=== PATIENT | female | born 1955 | race African-American/Black ===

== ENCOUNTER 2017-01-29 00:55 | Inpatient (IN) ==
[2017-01-29] MEDS ORDERED: SODIUM CHLORIDE 0.9% 500 ML IV STA (01:39)
[2017-01-29] MEDS ORDERED: MORPHINE 2 MG/1 ML SYRINGE IV STA (01:39)
[2017-01-29] MEDS ORDERED: ONDANSETRON 4 MG/2 ML VIAL IV STA (01:39)
[2017-01-29] MEDS ORDERED: LABETALOL 20 MG/4 ML SYRINGE IV STA ×2 (01:42→04:17)
[2017-01-29] MEDS ORDERED: ONDANSETRON 4 MG/2 ML VIAL ONE (01:54)
[2017-01-29] MEDS ORDERED: LABETALOL 100 MG/20 ML VIAL IV ONE (01:55)
[2017-01-29] MEDS ORDERED: MORPHINE 2 MG/1 ML SYRINGE ONE (01:55)
--- NOTE | 2017-01-29 01:55 | Emergency Department Note ---
Krishna Rodrigues Kasabria, am scribing for, and in the presence of, Georges Jovel MD 01:42. Med Rodrigues Robert M, MD, personally performed the services described in this documentation, ascribed by Elias Keller in my presence, and it is both accurate and complete . Arrival - Arrival Chief Complaint: Abdominal / Flank Pain Stated Complaint: vomitting pain on right side ED Nursing Triage Note: C/C N/V, right side abd pain started 01/28 17:00 Mode of Arrival: Ambulatory Limitations: No Limitations Source: Patient Time Seen by Provider: 01/29/17 01:18 - History of Present Illness HPI Narrative: Pt is a 61 y/o black female presenting to the ED with c/o nausea, vomiting, and generalized right sided abdominal pain that onset 01/28 at 1700. She states she has a dry cough and the abdominal pain onset initially 3 days ago. After meals the pain is worse but now describes the pain as constant. Tonight the vomiting onset. Her blood pressure is elevated but she takes 2 blood pressure medications and was compliant with the last dose being at 2300 tonight. She denies fever, chills, diarrhea, back pain, [place], vertigo, vision change, numbness , tingling, chest pain, and SOB. Consistency: constant Severity: moderate Allergies/Adverse Reactions: Allergies Allergy/AdvReac Type Severity Reaction Status Date / Time acetaminophen [From Lortab] Allergy ITCHING Verified 01/29/17 01:09 clarithromycin [From Biaxin] Allergy Swelling Verified 01/29/17 01:08 of Lip/Tongue/Throat dexamethasone [From Decadron] Allergy RASH Verified 01/29/17 01:09 hydrocodone [From Lortab] Allergy ITCHING Verified 01/29/17 01:09 prednisone Allergy Swelling Verified 01/29/17 01:08 of Lip/Tongue/Throat sulfamethoxazole Allergy RASH Verified 01/29/17 01:09 [From Bactrim] trimethoprim [From Bactrim] Allergy RASH Verified 01/29/17 01:09 Home Medications: Home Medications Medication Instructions Recorded Confirmed Type Unable To Obtain [Unable to Obtain] 01/29/17 01/29/17 History Review of System - Review of System 12 point system: reviewed and no additional remarkable complaints except as stated - Review of System Constitutional: Absent: chills, diaphoresis, fever, weakness Eyes: Absent: vision change Head/Ears/Nose/Throat: Absent: nasal drainage Respiratory: Absent: cough, wheezing Cardiovascular: Absent: chest pain, dyspnea on exertion, syncope Gastrointestinal: Present: abdominal pain (right sided abdominal tenderness ; worse after meals ), nausea, vomiting. Absent: diarrhea Genitourinary female: Absent: dysuria Musculoskeletal: Absent: arm pain, back pain, leg pain, neck pain Skin: Absent: rash Neurological: Absent: headache, weakness, confusion, abnormal gait, vertigo Psychiatric: Absent: anxiety Endocrine: Absent: fatigue Hematological/Lymphatic: Absent: easy bleeding Allergic/Immunologic: Absent: facial swelling Medical,Surgical,& Family Hx - Medical History Cardio: History of: Hypertension Endocrine: History of: Diabetes Mellitus (IDDM), Dyslipidemia Respiratory: History of: Asthma Gastrointestinal: History of: GERD Musculoskeletal: History of: Musculoskeletal Problems (Arthritis) - Surgical History Abdominal Surgeries: Patient denies: Cholecystectomy Reproductive Surgeries: Surgical HX of;: Hysterectomy - Social History Smoking Status: Never smoker Frequency of Alcohol Use: None Type of Drug Use: None Exam Vital Signs: Vital Signs Temperature 98 F 01/29/17 00:57 Pulse Rate 96 H 01/29/17 04:01 Respiratory Rate 20 01/29/17 04:01 Blood Pressure 179/96 01/29/17 04:01 O2 Sat by Pulse Oximetry 100 01/29/17 04:01 - General General appearance: alert, in no apparent distress - Head Head exam: Present: atraumatic, normocephalic, normal inspection - Eye Eye exam: Present: normal appearance, PERRL, EOMI - ENT ENT exam: Present: normal exam, normal oropharynx, mucous membranes moist, TM's normal bilaterally, normal external ear exam - Neck Neck exam: Present: normal inspection, full ROM, trachea midline. Absent: tenderness - Chest Chest inspection: Present: normal inspection, symmetric chest wall rise. Absent : tenderness - Respiratory Respiratory exam: Present: normal lung sounds bilaterally - Cardiovascular Cardiovascular exam: Present: regular rate, normal rhythm, normal heart sounds - Abdominal Exam Abdominal exam: Present: soft, normal bowel sounds. Absent: distention, tenderness, guarding, rebound - Extremities Exam Extremities exam: Present: normal inspection, full ROM, normal capillary refill. Absent: tenderness, pedal edema, calf tenderness - Back Exam Back exam: Present: normal inspection, full ROM. Absent: tenderness - Neurological Exam Neurological exam: Present: alert, oriented X3, CN II-XII intact, normal gait, reflexes normal - Psychiatric Psychiatric exam: Present: normal affect, normal mood - Skin Skin exam: Present: warm, dry, intact, normal color. Absent: diaphoresis, erythema Course - Consultations Consultation #1: Dr. Vidal will evaluate and admit the patient. Time: 04:05 Results - Labs CBC & BMP: 01/29/17 01:37 01/29/17 01:37 Lab Results: I have reviewed the patients labs Labs: Lab Results WBC 10.6 T/CUMM (4-12) 01/29/17 01:37 RBC 4.41 MC/CUMM (3.8-5.5) 01/29/17 01:37 Hgb 12.0 GM/DL (12.0-16.0) 01/29/17 01:37 Hct 37.9 VOL% (35.7-47.0) 01/29/17 01:37 MCV 85.9 FL (87-102) L 01/29/17 01:37 MCH 27 PG (27-34) 01/29/17 01:37 MCHC 31.7 GM/DL (32-36) L 01/29/17 01:37 RDW 14.4 % (9.3-17.3) 01/29/17 01:37 Plt Count 242 T/CUMM (130-400) 01/29/17 01:37 MPV 13.3 FL (9.6-12.0) H 01/29/17 01:37 Neut % (Auto) 45.4 % (38.7-73.9) 01/29/17 01:37 Lymph % (Auto) 43.5 % (21.3-54.2) 01/29/17 01:37 Summers % (Auto) 5.1 % (1.7-12.7) 01/29/17 01:37 Eos % (Auto) 4.9 % (0.00-10.9) 01/29/17 01:37 Baso % (Auto) 0.9 % (0.0-0.8) H 01/29/17 01:37 Neut # (Auto) 4.8 10*3/uL (1.4-7.4) 01/29/17 01:37 Lymph # (Auto) 4.6 10*3/uL (1.4-4.0) H 01/29/17 01:37 Summers # (Auto) 0.5 10*3/uL (0.11-0.8) 01/29/17 01:37 Eos # (Auto) 0.5 10*3/uL (0.0-0.87) 01/29/17 01:37 Baso # (Auto) 0.1 10*3/uL (0.0-0.2) 01/29/17 01:37 Immature Gran % 0.2 % 01/29/17 01:37 Nucleated RBC % 0.0 /100WBC 01/29/17 01:37 Immature Gran # 0.02 # 01/29/17 01:37 Nucleated RBCs # 0.00 10*3/uL 01/29/17 01:37 Sodium 140 MMOL/L (136-145) 01/29/17 01:37 Potassium 3.9 MMOL/L (3.5-5.1) 01/29/17 01:37 Chloride 101 MMOL/L (98-107) 01/29/17 01:37 Carbon Dioxide 26 MMOL/L (21-32) 01/29/17 01:37 Anion Gap 16.9 MMOL/L (5.0-15.0) H 01/29/17 01:37 BUN 19 MG/DL (7-18) H 01/29/17 01:37 Creatinine 1.20 MG/DL (0.55-1.02) H 01/29/17 01:37 GFR Calculation 67 ML/MIN 01/29/17 01:37 BUN/Creatinine Ratio 15.00 RATIO (6.00-20.00) 01/29/17 01:37 Glucose 165 MG/DL (74-106) H 01/29/17 01:37 POC Glucose 171 MG/DL (74-106) H 01/29/17 03:10 Calculated Osmolality 284.4 MOS/KG (273-304) 01/29/17 01:37 Calcium 10.0 MG/DL (8.5-10.1) 01/29/17 01:37 Total Bilirubin 0.40 MG/DL (0.2-1.0) 01/29/17 01:37 AST 54 U/L (0-37) H 01/29/17 01:37 ALT 68 U/L (13-56) H 01/29/17 01:37 Alkaline Phosphatase 158 U/L (45-117) H 01/29/17 01:37 Total Protein 7.4 G/DL (6.4-8.3) 01/29/17 01:37 Albumin 3.8 G/DL (3.4-5.0) 01/29/17 01:37 Globulin 3.6 G/DL (2.3-3.5) H 01/29/17 01:37 Albumin/Globulin Ratio 1.0 RATIO (1.1-2.2) L 01/29/17 01:37 Amylase 81 U/L (25-115) 01/29/17 01:37 Lipase 207.0 U/L (73-393) 01/29/17 01:37 Urine Color Yellow (Yellow) 01/29/17 01:37 Urine Appearance Slightly hazy (Clear) 01/29/17 01:37 Urine pH 5.0 (4.5-8.0) 01/29/17 01:37 Ur Specific Park 1.019 (1.001-1.035) 01/29/17 01:37 Urine Protein >=500 MG/DL 01/29/17 01:37 Urine Glucose (UA) Negative mg/dL (Negative) 01/29/17 01:37 Urine Ketones Negative mg/dL (Negative) 01/29/17 01:37 Urine Blood Negative mg/dL (Negative) 01/29/17 01:37 Urine Nitrate Negative (Negative) 01/29/17 01:37 Urine Bilirubin Negative mg/dL (Negative) 01/29/17 01:37 Urine Urobilinogen < 2.0 EU/DL (0.2-1.0) H 01/29/17 01:37 Urine Leukocytes Negative Cheri/ul (Negative) 01/29/17 01:37 Urine RBC 1 /HPF (0-4) 01/29/17 01:37 Urine WBC 1 /HPF (0-6) 01/29/17 01:37 Ur Squamous Epith Cells Occasional /HPF (0-10) 01/29/17 01:37 Urine Bacteria Occasional /HPF (Few) 01/29/17 01:37 Hyaline Casts 1 /LPF (0-3) 01/29/17 01:37 Urine Mucus Occasional /LPF (Occasional) 01/29/17 01:37 Ur Culture Indicated? Not indicated 01/29/17 01:37 - Diagnostic Findings Procedure: CT Abdomen and Pelvis: report reviewed by me (SBO) Disposition Clinical Impression: Small bowel obstruction, Hypertension Case discussed with: patient Disposition: Still a Patient Condition: Stable Time of Disposition: 04:05
[2017-01-29 01:59] LABS: Basophils # 0.1 10*3/uL (0.0-0.2); Basophils % 0.9 % (0.0-0.8); Eosinophils # 0.5 10*3/uL (0.0-0.87); Eosinophils % 4.9 % (0.00-10.9); Hematocrit 37.9 VOL% (35.7-47.0); Immature Granulocytes % 0.2 %; Immature Granulocytes Absolute 0.02 #; Lymphocytes # 4.6 10*3/uL (1.4-4.0); Lymphocytes % 43.5 % (21.3-54.2); Mean Corpuscular HGB Conc 31.7 GM/DL (32-36); Mean Corpuscular Hemoglobin 27 PG (27-34); Mean Corpuscular Volume 85.9 FL (87-102); Mean Platelet Volume 13.3 FL (9.6-12.0); Monocytes # 0.5 10*3/uL (0.11-0.8); Monocytes % 5.1 % (1.7-12.7); Neutrophils # 4.8 10*3/uL (1.4-7.4); Neutrophils % 45.4 % (38.7-73.9); Platelet Count 242 T/CUMM (130-400); Red Blood Count 4.41 MC/CUMM (3.8-5.5); Red Cell Distribution Width 14.4 % (9.3-17.3); White Blood Count 10.6 T/CUMM (4-12)
[2017-01-29 02:03] LABS: Apearance,Urine Slightly Hazy (Clear); Bacteria,Urine Occasional /HPF (Few); Bilirubin,Urine Negative (Negative); Blood, Urine Negative (Negative); Glucose,Urine (UA) Negative (Negative); Hyaline Casts,Urine 1 /LPF (0-3); Ketones,Urine Negative (Negative); Mucus,Urine Occasional /LPF (Occasional); Nitrite,Urine Negative (Negative); Protein,Urine >=500 MG/DL; RBC,Urine 1 /HPF (0-4); Squamous Epithelial Cell,Urine Occasional /HPF (0-10); Urine Color Yellow (Yellow); Urine Specific Gravity 1.019 (1.001-1.035); Urine Urobilinogen < 2.0 EU/DL (0.2-1.0); WBC,Urine 1 /HPF (0-6)
[2017-01-29 02:22] LABS: Albumin 3.8 G/DL (3.4-5.0); Bilirubin,Total 0.4 MG/DL (0.2-1.0); Osmolality,Calculated 284.4 MOS/KG (273-304); Potassium 3.9 MMOL/L (3.5-5.1); Total Protein 7.4 G/DL (6.4-8.3)
[2017-01-29] MEDS ORDERED: BISACODYL 5 MG TABLET PO PRN (04:09)
[2017-01-29] MEDS ORDERED: BENZOCAINE/BUTAMBEN/TETRACAINE SPRAY 20 GM CAN TOP ONE (04:25)
[2017-01-29] MEDS ORDERED: PHENOL 1.4% THROAT SPRAY 177 ML BOTTLE PO PRN (05:34)
[2017-01-29] MEDS: DEXTROSE 5% LACTATED RINGERS 1,000 ML IV SCH ×4 (06:05→21:47)
--- NOTE | 2017-01-29 06:30 | CT Report ---
Exam: CT abdomen pelvis w con Date: 01/29/2017 1:39 AM Comparison: None Indication: Abdominal pain and pelvic pain Total DLP: 1672.7 mGy*cm Technical: No oral contrast administered. Images were obtained from the lung bases to the iliac crest continuation through the pelvis with 100 cc of Omnipaque 350 with axial sagittal coronal imaging available for review. Dose reduction was performed with decreasing kv and mA and automated exposure Findings: The study was initially reviewed by C. Lung bases: No obvious infiltrates or effusions present. Liver and Spleen: Fatty infiltration of the liver is present. The hepatic and portal veins are patent and the spleen is unremarkable. Gallbladder and Pancreas: Gallbladder is unremarkable. The pancreas is intact. Adrenals: Unremarkable Kidneys: Both kidneys are equally perfused and demonstrate no evidence for obstructive uropathy. Stomach: Incomplete distended with air fluid and debris Retroperitoneum: No enlarged lymph nodes. Aorta and IVC: Very minimal atherosclerotic plaque at the aortoiliac junction. The IVC is patent no aneurysm noted Bowel and Mesentery: Some dilated loops of small bowel are present. Diverticulosis present within the rectosigmoid colon without obvious diverticulitis present. No obvious evidence of appendicitis noted. Scattered nodes in the mesentery in the mesenteric fat. Pelvis: Bladder: Partially distended with contrast on delayed images. Fluid: No free fluid identified. Lymph nodes: No enlarged lymph nodes. Pelvic organs: Prostate hysterectomy Osseous structures: Degenerative spondylosis change present and some vacuum phenomena in the thoracolumbar spine. Facet arthropathy is present. Impression: 1. Dilated loop of small bowel in the left lower abdomen partial bowel obstruction cannot be excluded. Transition point is in the anterior left mid abdomen. 2. Fatty infiltration 3. Diverticulosis without obvious diverticulitis 4. Scattered mesenteric nodes present. PROCEDURE INTERPRETED AT [facility] DEPARTMENT OF RADIOLOGY Final Report Signed by: Dr. Sharan Jules
[2017-01-29] MEDS: PANTOPRAZOLE 40 MG TABLET PO SCH (08:10)
--- NOTE | 2017-01-29 08:23 | General Surg History&Physical ---
Assessment and Plan (1) Small bowel obstruction Status: Acute Assessment and plan: Impression: Possible ileus related to gastroenteritis versus partial small bowel obstruction Plan: CT scan images and report have been reviewed. Labs were largely okay. We 'll continue conservative management with NG tube decompression. Encouraged ambulation. We'll consult Hospital medicine to assist with her medical problems. She is very hypertensive upon arrival but she is probably not been able to keep her blood pressure medication down. Current Visit: Yes History of Present Illness Chief complaint: abdominal pain History of present illness: Ms. Harrison is a 61 year old female who presents to the emergency room with a one -day history of abdominal pain associated with nausea and vomiting. Patient began to experience diarrhea approximately 3-4 days ago and it stopped on Friday and she began to have nausea vomiting and pain which is been mostly along the right abdomen. Any melena. She's had no bleeding that she knows of. She denies any chest pain or shortness of breath. Last bowel movement was diarrhea on Friday. She denies any flatus since admission. She states that she feels better since the NG tube was placed. She states she is still distended but it has improved some. Home Medications Medication Instructions Recorded Confirmed Type Unable To Obtain [Unable to Obtain] 01/29/17 01/29/17 History Allergies Allergy/AdvReac Type Severity Reaction Status Date / Time acetaminophen [From Lortab] Allergy ITCHING Verified 01/29/17 01:09 clarithromycin [From Biaxin] Allergy Swelling Verified 01/29/17 01:08 of Lip/Tongue/Throat dexamethasone [From Decadron] Allergy RASH Verified 01/29/17 01:09 hydrocodone [From Lortab] Allergy ITCHING Verified 01/29/17 01:09 prednisone Allergy Swelling Verified 01/29/17 01:08 of Lip/Tongue/Throat sulfamethoxazole Allergy RASH Verified 01/29/17 01:09 [From Bactrim] trimethoprim [From Bactrim] Allergy RASH Verified 01/29/17 01:09 Medical,Surgical,& Family Hx - Medical History Cardio: History of: Hypertension Endocrine: History of: Diabetes Mellitus (IDDM), Dyslipidemia Respiratory: History of: Asthma Gastrointestinal: History of: GERD Musculoskeletal: History of: Back/Neck Problems (spinal stenosis, herniated disk L4-5), Musculoskeletal Problems (Arthritis) - Surgical History Abdominal Surgeries: Surgical HX of: Appendectomy Patient denies: Cholecystectomy Reproductive Surgeries: Surgical HX of;: Hysterectomy Orthopedic Surgeries: Surgical HX of;: Total Knee Replacement (RTK in 2013) - Family History Family History: Reports;: Family Cancer (both parents had lung cancer), Family Diabetes, Family Hypertension - Social History Smoking Status: Never smoker Frequency of Alcohol Use: None Type of Drug Use: None Exam - Constitutional Vitals: Period Temp Pulse Resp BP Sys/Evangelista Pulse Ox Last 24 Hr 98.1 F-98.3 F 83-88 18-20 164-178/85-117 94-97 General appearance: no acute distress - Head Head exam: Present: normocephalic - ENT Mouth exam: Present: normal external inspection - Neck Neck exam: Present: normal inspection, trachea midline - Respiratory Respiratory exam: Present: clear to auscultation bilaterally - Cardiovascular Cardiovascular exam: Present: RRR - GI/Abdominal GI/Abdominal exam: Present: soft (mild tenderness along the right abdomen. Some distention. Hypoactive bowel sounds. No peritoneal signs. No left abdominal pain or tenderness.) - Extremities Exam Extremities exam: Present: normal inspection - Back Exam Back exam: Present: normal inspection - Neurological Exam Neurological exam: Present: alert, oriented X3 Speech: Present: normal - Skin Skin exam: Present: normal color 12 point system: reviewed and no additional remarkable complaints except as stated Results - Labs CBC & BMP: 01/29/17 01:37 01/29/17 01:37 Lab Results: I have reviewed the past 24 hour labs
--- NOTE | 2017-01-29 09:51 | Hospitalist Consult Note ---
<Hermila Olivera - Last Filed: 01/29/17 09:40> History of Present Illness - Data of Consult Patient: new to practice Consult date: 01/29/17 Requesting Physician: Aftab Manriquez - Consult Narrative Reason for consult: Medical Management History of present illness: Ms. Harrison is a 61 year old female with history of HTN and diabetes that has been admitted to surgery services for a bowel obstruction. The Hospitalist services ahs been consulted to manage her diabetes as well as her hypertension. She is a pleasant female who has a history of hypertension since she was 15 y/o. States she takes her medication daily as prescribed. She is on Clonidine and Verapamil. She states her BP has been well controlled until she became ill. States her diabetes was not well controlled until she was placed on insulin several months ago but it has been much better since then. She occasionally has low blood sugars in the 40-70 range if she takes her insulin but doesn't eat. She denies issues with heart attack or strokes in the past. Thank you for allowing us to participate in the care of your patient CC: Aftab Manriquez MD - Home Medications and Allergies Home Medications: Home Medications Medication Instructions Recorded Confirmed Type Amoxicillin/Potassium Clav [Amox 1 each PO BID 01/29/17 01/29/17 History Tr-K Clv 875-125 mg Tab] Cholecalciferol (Vitamin D3) 1,000 unit PO DAILY 01/29/17 01/29/17 History [Vitamin D3 Chew Tab] Clonidine HCl [Clonidine HCl ER] 0.1 mg PO BID 01/29/17 01/29/17 History Fenofibrate,Micronized [Antara] 90 mg PO DAILY 01/29/17 01/29/17 History Furosemide Tab [Lasix Tab] 20 mg PO DAILY 01/29/17 01/29/17 History Gabapentin 1 tablet PO BEDTIME 01/29/17 01/29/17 History Gabapentin 300 mg PO BID 01/29/17 01/29/17 History Insulin Regular [HumuLIN R] 65 unit SUBCUT AC LUNCH 01/29/17 01/29/17 History Insulin Regular [HumuLIN R] 65 unit SUBCUT AC SUPPER 01/29/17 01/29/17 History Insulin Regular [HumuLIN R] 85 unit SUBCUT DAILY W/BREAKFAST 01/29/17 01/29/17 History Levothyroxine Tab [Synthroid Tab] 50 mcg PO DAILY@0700 01/29/17 01/29/17 History Metformin HCl 1,000 mg PO BID 01/29/17 01/29/17 History Methocarbamol [Methocarbamol] 750 mg PO QID 01/29/17 01/29/17 History Multivitamin [One Daily] 1 each PO DAILY 01/29/17 01/29/17 History Pantoprazole Sodium [Protonix] 40 mg PO DAILY 01/29/17 01/29/17 History Verapamil HCl [Verapamil ER Tab] 240 mg PO DAILY 01/29/17 01/29/17 History traMADol TAB [Ultram] 50 mg PO Q4-6H PRN 01/29/17 01/29/17 History Allergies/Adverse Reactions: Allergies Allergy/AdvReac Type Severity Reaction Status Date / Time acetaminophen [From Lortab] Allergy ITCHING Verified 01/29/17 01:09 clarithromycin [From Biaxin] Allergy Swelling Verified 01/29/17 01:08 of Lip/Tongue/Throat dexamethasone [From Decadron] Allergy RASH Verified 01/29/17 01:09 hydrocodone [From Lortab] Allergy ITCHING Verified 01/29/17 01:09 prednisone Allergy Swelling Verified 01/29/17 01:08 of Lip/Tongue/Throat sulfamethoxazole Allergy RASH Verified 01/29/17 01:09 [From Bactrim] trimethoprim [From Bactrim] Allergy RASH Verified 01/29/17 01:09 Medical,Surgical,& Family Hx - Medical History Cardio: History of: Hypertension Endocrine: History of: Diabetes Mellitus (IDDM), Dyslipidemia Respiratory: History of: Asthma Gastrointestinal: History of: GERD Musculoskeletal: History of: Back/Neck Problems (spinal stenosis, herniated disk L4-5), Musculoskeletal Problems (Arthritis) - Surgical History Abdominal Surgeries: Surgical HX of: Appendectomy Patient denies: Cholecystectomy Reproductive Surgeries: Surgical HX of;: Hysterectomy Orthopedic Surgeries: Surgical HX of;: Total Knee Replacement (RTK in 2012) - Family History Family History: Reports;: Family Cancer (both parents had lung cancer), Family Diabetes, Family Hypertension - Social History Smoking Status: Never smoker Frequency of Alcohol Use: None Type of Drug Use: None Exam - Constitutional Vitals: Period Temp Pulse Resp BP Sys/Evangelista Pulse Ox Last 24 Hr 98.1 F-98.3 F 83-88 18-20 164-178/85-117 94-97 Results - Labs CBC & BMP: 01/29/17 01:37 01/29/17 01:37 <Tabitha Quintero - Last Filed: 01/29/17 10:53> Assessment and Plan (1) Small bowel obstruction Status: Acute Assessment and plan: NG bowel rest, cont IVF Current Visit: Yes (2) Insulin dependent diabetes mellitus Status: Acute Assessment and plan: Patient's Lantus is on hold, continue insulin sliding scale every 6 hours. We will most likely discontinue the D5 but for now we will leave it. Current Visit: Yes (3) Hypertension Status: Acute Assessment and plan: As needed metoprolol IV Current Visit: Yes (4) Hypothyroidism Status: Acute Assessment and plan: cont levothyroxine 25 mcg IV daily Current Visit: Yes History of Present Illness - Consult Narrative History of present illness: Ms. Harrison is a 61 year old female seen and examined. Hospital course reviewed and edited. CC: Aftab Manriquez MD Medical,Surgical,& Family Hx - Social History Marital Status: Lives With:: Spouse Functional capacity: independent ambulation - Constitutional Constitutional: Present: headache(s). Absent: fatigue, fever(s) - EENT Eyes: Absent: blurry vision, diplopia Ears: Absent: decreased hearing, ear discharge Nose, mouth and throat: Present: headache(s), sore throat - Cardiovascular Cardiovascular: Absent: chest pain at rest, dyspnea, dyspnea on exertion, edema - Respiratory Respiratory: Absent: dyspnea, dyspnea on exertion, wheezing - Gastrointestinal Gastrointestinal: Present: abdominal pain, bloating, nausea, vomiting - Genitourinary Genitourinary: Absent: dysuria, flank pain - Musculoskeletal Musculoskeletal: Absent: arthralgias, back pain - Neurological Neurological: Present: headache(s). Absent: confusion, syncope - Psychiatric Psychiatric: Present: depression. Absent: anxiety - Endocrine Endocrine: Absent: cold intolerance, heat intolerance - Hematologic/Lymphatic Hematologic/Lymphatic: Absent: easy bleeding, easy bruising Exam - Constitutional Vitals: Period Temp Pulse Resp BP Sys/Evangelista Pulse Ox Last 24 Hr 98.1 F-98.3 F 83-88 18-20 164-178/85-117 94-97 General appearance: no acute distress, over weight - Head Head exam: Present: normal inspection, normocephalic - Eye Eye exam: Present: EOMI, conjunctival injection Pupils: Present: EMRE, normal accommodation - ENT ENT exam: Present: normal exam, normal external ear exam - Neck Neck exam: Present: thyromegaly. Absent: lymphadenopathy - Respiratory Respiratory exam: Present: clear to auscultation bilaterally. Absent: wheezes - Cardiovascular Cardiovascular exam: Present: regular rate and rhythm. Absent: systolic murmur - GI/Abdominal GI/Abdominal exam: Present: distended, hypoactive bowel sounds, tenderness - Extremities Exam Extremities exam: Present: normal capillary refill. Absent: edema - Neurological Exam Neurological exam: Present: alert, oriented X3, CN II-XII intact, reflexes normal. Absent: motor sensory deficit - Psychiatric Psychiatric exam: Present: normal affect, normal mood - Skin Skin exam: Present: normal color, warm Results - Labs CBC & BMP: 01/29/17 01:37 01/29/17 01:37 Lab Results: I have reviewed the past 24 hour labs - Diagnostic Findings Procedure: CT Abdomen and Pelvis: report reviewed by me (Small bowel obstruction , diverticulosis, fatty infiltration of the liver)
[2017-01-29] MEDS ORDERED: GLUCAGON 1 MG VIAL IM PRN (10:47)
[2017-01-29] MEDS ORDERED: DEXTROSE 50% 25 GM/50 ML VIAL IV PRN (10:47)
[2017-01-29] MEDS: MORPHINE 2 MG/1 ML SYRINGE IV PRN ×2 (10:49→17:26)
[2017-01-29] MEDS: INSULIN LISPRO 100 UNIT/ML SUBCUT SCH ×2 (11:37→17:26)
[2017-01-29] MEDS: METOCLOPRAMIDE 10 MG/2 ML VIAL IV SCH ×2 (11:37→17:26)
[2017-01-29] MEDS: FLUTICASONE 50 MCG NASAL SPRAY 16 GM BOTTLE BOTH NARES SCH ×2 (11:37→21:46)
[2017-01-29] MEDS: METOPROLOL TARTRATE 5 MG/5 ML VIAL IV PRN ×2 (16:13→22:48)
[2017-01-30] MEDS: METOCLOPRAMIDE 10 MG/2 ML VIAL IV SCH ×4 (01:34→17:05)
[2017-01-30] MEDS: INSULIN LISPRO 100 UNIT/ML SUBCUT SCH ×4 (01:37→17:12)
[2017-01-30] MEDS: MORPHINE 2 MG/1 ML SYRINGE IV PRN ×2 (03:12→09:42)
[2017-01-30] MEDS: cloNIDine 0.1 MG/24 HR PATCH TRANSDERM SCH ×2 (04:54→08:16)
[2017-01-30 05:23] LABS: Basophils % 0.3 % (0.0-0.8); Eosinophils # 0.5 10*3/uL (0.0-0.87); Eosinophils % 5.9 % (0.00-10.9); Hematocrit 35.2 VOL% (35.7-47.0); Hemoglobin 11.3 GM/DL (12.0-16.0); Immature Granulocytes % 0.2 %; Immature Granulocytes Absolute 0.02 #; Lymphocytes # 4.3 10*3/uL (1.4-4.0); Lymphocytes % 46.7 % (21.3-54.2); Mean Corpuscular HGB Conc 32.1 GM/DL (32-36); Mean Corpuscular Hemoglobin 27 PG (27-34); Mean Platelet Volume 13.1 FL (9.6-12.0); Monocytes # 0.7 10*3/uL (0.11-0.8); Monocytes % 7.9 % (1.7-12.7); Neutrophils # 3.6 10*3/uL (1.4-7.4); Platelet Count 235 T/CUMM (130-400); Red Blood Count 4.19 MC/CUMM (3.8-5.5); Red Cell Distribution Width 14.5 % (9.3-17.3); White Blood Count 9.2 T/CUMM (4-12)
[2017-01-30 05:54] LABS: Albumin 3.3 G/DL (3.4-5.0); Calcium 9.2 MG/DL (8.5-10.1); Osmolality,Calculated 287.1 MOS/KG (273-304); Total Protein 6.7 G/DL (6.4-8.3)
[2017-01-30] MEDS: DEXTROSE 5% LACTATED RINGERS 1,000 ML IV SCH ×2 (06:08→11:31)
[2017-01-30] MEDS: ONDANSETRON 4 MG/2 ML VIAL IV PRN ×2 (06:47→16:40)
[2017-01-30] MEDS: hydrALAZINE 20 MG/1 ML VIAL IV PRN ×5 (06:49→20:51)
[2017-01-30] MEDS: LEVOTHYROXINE 100 MCG VIAL IV SCH (06:51)
[2017-01-30] MEDS: PANTOPRAZOLE 40 MG TABLET PO SCH (08:16)
[2017-01-30] MEDS: FLUTICASONE 50 MCG NASAL SPRAY 16 GM BOTTLE BOTH NARES SCH ×2 (08:16→20:43)
--- NOTE | 2017-01-30 11:26 | General Surgery Progress Note ---
Assessment and Plan (1) Small bowel obstruction Status: Acute Assessment and plan: Impression: Possible ileus related to gastroenteritis versus partial small bowel obstruction Plan: No significant improvement. Her pain is somewhat improved but she remains distended with high NG tube output. Hypertension and medical problems being managed by Hospital medicine. Lab work looks okay. Continue conservative management for now. If she does not show any signs of improvement of her bowel obstruction then she may need operative intervention. This was discussed with her. We'll reevaluate tomorrow. Current Visit: Yes Subjective Patient reports: Present: no new complaints, feels better Narrative: Patient states she feels better. She still complains of some distention. Pain is improved. NG tube with approximately a liter out in the last 24 hours. Denies flatus or bowel movement. Exam - Constitutional Vitals: Period Temp Pulse Resp BP Sys/Evangelista Pulse Ox Last 24 Hr 98.1 F-98.9 F 81-95 18-20 182-216/88-110 93-97 General appearance: no acute distress - Head Head exam: Present: normocephalic - Neck Neck exam: Present: normal inspection - Respiratory Respiratory exam: Present: clear to auscultation bilaterally - Cardiovascular Cardiovascular exam: Present: RRR - GI/Abdominal GI/Abdominal exam: Present: soft (tenderness improved, still distended. No bowel sounds. No peritoneal signs.) - Back Exam Back exam: Present: normal inspection - Neurological Exam Neurological exam: Present: alert, oriented X3 Speech: Present: normal - Skin Skin exam: Present: normal color Results - Labs CBC & BMP: 01/30/17 04:57 01/30/17 04:57 Lab Results: I have reviewed the past 24 hour labs
[2017-01-30] MEDS ORDERED: cloNIDine 0.3 MG/24 HR PATCH TRANSDERM SCH (16:30)
[2017-01-30] MEDS: SODIUM CHLORIDE 0.45% 1,000 ML IV SCH (16:43)
[2017-01-30] MEDS: METOPROLOL TARTRATE 5 MG/5 ML VIAL IV PRN (17:13)
--- NOTE | 2017-01-30 17:37 | Hospitalist Progress Note ---
Assessment and Plan (1) Small bowel obstruction Status: Acute Assessment and plan: NG bowel rest, continue nausea medicine Current Visit: Yes (2) Insulin dependent diabetes mellitus Status: Acute Assessment and plan: Stop D5 and fluids Current Visit: Yes (3) Hypertension Status: Acute Assessment and plan: Increase clonidine patch to 0.3, increase hydralazine to 20 mg IV every hours. Continue to give the metoprolol Current Visit: Yes (4) Hypothyroidism Status: Acute Assessment and plan: cont levothyroxine 25 mcg IV daily Current Visit: Yes Hospitalist: Subjective Interval history: Blood pressure is running too high. Was not notified by nursing. I have increased her clonidine patch and increased her hydralazine IV. Patient feels very nauseated and increased her suctioning through her NG and we have given her Phenergan. Some of her nausea may be due to her blood pressure going too high belly seems more distended today and she seems more depressed Exam - Constitutional Vitals: Period Temp Pulse Resp BP Sys/Evangelista Pulse Ox Last 24 Hr 96.8 F-98.9 F 81-117 17-20 177-216/79-109 93-100 Exam: Heart Rate-[RRR] Lungs-[CTAB] GI-[diminished bowel sounds and distended Ext-[no edema] Neuro alert and oriented 3, motor 5 out of 5 Psych depressed mood and affect General mild acute distress due to nausea Results - Labs CBC & BMP: 01/30/17 04:57 01/30/17 04:57 Lab Results: I have reviewed the past 24 hour labs
[2017-01-31] MEDS: METOCLOPRAMIDE 10 MG/2 ML VIAL IV SCH ×5 (00:44→23:47)
[2017-01-31] MEDS: INSULIN LISPRO 100 UNIT/ML SUBCUT SCH ×5 (00:47→23:48)
[2017-01-31] MEDS: SODIUM CHLORIDE 0.45% 1,000 ML IV SCH ×3 (02:19→17:06)
[2017-01-31] MEDS: hydrALAZINE 20 MG/1 ML VIAL IV PRN ×2 (04:02→08:42)
[2017-01-31 05:40] LABS: Basophils # 0.1 10*3/uL (0.0-0.2); Basophils % 0.4 % (0.0-0.8); Eosinophils # 0.1 10*3/uL (0.0-0.87); Eosinophils % 0.7 % (0.00-10.9); Hematocrit 39.5 VOL% (35.7-47.0); Hemoglobin 12.7 GM/DL (12.0-16.0); Immature Granulocytes % 0.3 %; Immature Granulocytes Absolute 0.04 #; Lymphocytes % 42.4 % (21.3-54.2); Mean Corpuscular HGB Conc 32.2 GM/DL (32-36); Mean Corpuscular Hemoglobin 27 PG (27-34); Mean Corpuscular Volume 83.7 FL (87-102); Neutrophils # 6.9 10*3/uL (1.4-7.4); Neutrophils % 49.2 % (38.7-73.9); Platelet Count 298 T/CUMM (130-400); Red Blood Count 4.72 MC/CUMM (3.8-5.5); Red Cell Distribution Width 14.8 % (9.3-17.3); White Blood Count 14.1 T/CUMM (4-12)
[2017-01-31] MEDS: LEVOTHYROXINE 100 MCG VIAL IV SCH (06:14)
[2017-01-31 06:29] LABS: Calcium 9.8 MG/DL (8.5-10.1); Osmolality,Calculated 283.5 MOS/KG (273-304); Potassium 3.9 MMOL/L (3.5-5.1)
[2017-01-31] MEDS: PANTOPRAZOLE 40 MG TABLET PO SCH (08:44)
--- NOTE | 2017-01-31 09:23 | XRay Report ---
Exam: XR abdomen 2V Date: 01/31/2017 4:00 AM Comparison: CT 01/29/2017 Indication: SBO Technique:[Supine and erect abdomen] Findings: Nasogastric tube in the stomach. No gaseous distention of the bowel. Increased fecal material in the colon. No free air. No acute osseous findings. Nonspecific calcifications. Impression: Nasogastric tube in the stomach. Probable improved partial SBO. No gaseous distention of the bowel. Increased fecal material in the colon. PROCEDURE INTERPRETED AT [facility] DEPARTMENT OF RADIOLOGY Final Report Signed by: Dr. Dara Pardo
[2017-01-31] MEDS: ONDANSETRON 4 MG/2 ML VIAL IV PRN (10:10)
[2017-01-31] MEDS: MORPHINE 2 MG/1 ML SYRINGE IV PRN ×2 (10:15→20:38)
[2017-01-31] MEDS: FLUTICASONE 50 MCG NASAL SPRAY 16 GM BOTTLE BOTH NARES SCH ×2 (10:18→20:27)
--- NOTE | 2017-01-31 10:30 | General Surgery Progress Note ---
Assessment and Plan (1) Small bowel obstruction Status: Acute Assessment and plan: Impression: Possible ileus related to gastroenteritis versus partial small bowel obstruction Plan: No significant improvement. White blood cell count now elevated. I've discussed with Dr. Quintero regarding her hypertension and feel that the patient needs operative intervention. Dr. Quintero is okay with her proceeding to the operating room. This is been discussed with the patient. I relayed my concerns about her white blood cell count and no significant improvement. I don 't feel we can continue conservative therapy at this point without significant risk. I discussed the procedure and has not performed in the possibilities including bowel resection as well as colostomy though it is unlikely. The risk of the procedure including bleeding, infection, damage to surrounding structures , need for further surgery were all discussed in detail. She wants to proceed. Plan for exploratory laparotomy today. Current Visit: Yes Subjective Narrative: Pain unchanged. NG tube output still very high. No flatus or bowel movement. She is being transferred to the ICU for start a drip for her hypertension. Exam - Constitutional Vitals: Period Temp Pulse Resp BP Sys/Evangelista Pulse Ox Last 24 Hr 96.8 F-99.5 F 92-129 16-20 177-209/79-107 93-100 General appearance: no acute distress - Head Head exam: Present: normocephalic - ENT Mouth exam: Present: normal external inspection - Neck Neck exam: Present: normal inspection, trachea midline - Respiratory Respiratory exam: Present: clear to auscultation bilaterally - Cardiovascular Cardiovascular exam: Present: RRR - GI/Abdominal GI/Abdominal exam: Present: soft (mildly tender with no peritoneal signs. Still distended. No bowel sounds. NG tube with dark aspirate. Output still high.) - Back Exam Back exam: Present: normal inspection - Neurological Exam Neurological exam: Present: alert, oriented X3 Speech: Present: normal - Skin Skin exam: Present: normal color Results - Labs CBC & BMP: 01/31/17 04:41 01/31/17 04:41 Lab Results: I have reviewed the past 24 hour labs
[2017-01-31] MEDS ORDERED: DEXTROSE 10% 1,000 ML IV PRN (10:34)
--- NOTE | 2017-01-31 11:24 | Hospitalist Progress Note ---
Assessment and Plan (1) Small bowel obstruction Status: Acute Assessment and plan: PICC line today and starting TPN, they plan for surgery today Current Visit: Yes (2) Insulin dependent diabetes mellitus Status: Acute Assessment and plan: No insulin before procedure but will be on insulin sliding scale after procedure every 6 Current Visit: Yes (3) Hypertension Status: Acute Assessment and plan: Continue high dose clonidine patch in place on the Dilt drip we may have to place him on 9 pride if pressure is not controlled. Current Visit: Yes (4) Hypothyroidism Status: Acute Assessment and plan: cont levothyroxine 25 mcg IV daily Current Visit: Yes Hospitalist: Subjective Interval history: Patient's bowel sounds are more diminished today. Her blood pressure is still not well controlled. I spoke with Dr. Manriquez today and he plans to take her to surgery. I have moved her down to the ICU so I can control her pressure with drips that cannot be run on the floor. Patient does not look like she is developing obstruction. Exam - Constitutional Vitals: Period Temp Pulse Resp BP Sys/Evangelista Pulse Ox Last 24 Hr 96.8 F-99.5 F 92-129 16-20 177-209/79-107 93-100 Exam: Heart Rate-[RRR] Lungs-[CTAB] GI-[diminished bowel sounds and distended Ext-[no edema] Neuro alert and oriented 3, motor 5 out of 5 Psych depressed mood and affect General mild acute distress due to nausea Results - Labs CBC & BMP: 01/31/17 04:41 01/31/17 04:41 Lab Results: I have reviewed the past 24 hour labs - Diagnostic Findings Procedure: Abdominal x-ray: report reviewed by me (Improved partial obstruction)
--- NOTE | 2017-01-31 11:37 | Post Interventional Procedure ---
Pre-op diagnosis: SBO vs ileus Post-op diagnosis: same Procedure: PICC placement Contrast: none Flouroscopy: 0.1 min Radiologist: Henry Morse Anesthesia: local Specimens: none sent Estimated blood loss: minimal (2 mL) Complications: none Condition: stable Description/Findings: left arm basilic vein 5 FR dual lumen power picc placed. catheter is ready for use. Assessment and Plan - Time spent with patient Time spent with patient: Less than 30 minutes
--- NOTE | 2017-01-31 11:40 | Interventional Radiology Rpt ---
IR PICC line insertion, US guide vascular access IR PICC Placement Peripherally-inserted central catheter (PICC) placement using ultrasound and fluoroscopic guidance Ultrasound of the left upper extremity Clinical Information: Small bowel ileus versus obstruction. PICC line is requested Physician: Dr. Morse Procedure: The patient was advised of the benefits, risks, and alternatives of the procedure and informed consent was obtained. A time out was performed with verification of the patient's name, MRN, site of procedure, and type of procedure to be performed. The patient was positioned in the supine position on the angiographic table. The site was prepped and draped in the usual sterile fashion. Additionally, maximal sterile barrier technique was employed for the procedure. A ocean lifeguard specialist radiograph reveals endotracheal tube in place with the tip terminating approximately 3 cm from the catarino. Ultrasound examination of the left arm demonstrates patent and compressible brachial and basilic veins. The left arm was prepped and draped in the usual sterile fashion. The left basilic vein was again identified. Using ultrasound guidance, a 21 gauge needle was used to access the vein. A permanent ultrasound recording of vascular access was obtained for the patient's record. A 0.018" cope wire was then advanced into the vein. The needle was exchanged for a 5 [place]er peel-away sheath. A 5 [place]er double lumen Bard Solo PICC catheter was measured and trimmed to the 39 cm josephine. The PICC line was advanced through the sheath and into the central circulation. The catheter tip was positioned at the cavo-atrial junction. The peel-away sheath was then removed. At the conclusion of the procedure, the catheter was secured in place using a Stat-Lock device. A sterile dressing was applied. The lumens aspirate and flush freely. The catheter is ready for immediate use. The patient tolerated the procedure well and was returned to the PRU in stable condition. EBL: < 5 mL. Complications: None. Fluoroscopy time: 0.1 minutes Conclusion: Successful placement of a 5 [place]er double lumen Bard Solo power injectable PICC via the left basilic vein. The catheter is ready for immediate use. PROCEDURE INTERPRETED AT [facility] DEPARTMENT OF RADIOLOGY Final Report Signed by: Henry Morse
[2017-01-31] MEDS ORDERED: LABETALOL 20 MG/4 ML SYRINGE IV ONE ×2 (12:31→12:36)
[2017-01-31] MEDS ORDERED: NEOSTIGMINE 10 MG/10 ML VIAL ONE (12:35)
[2017-01-31] MEDS ORDERED: ROCURONIUM 100 MG/10 ML VIAL IV ONE (12:35)
[2017-01-31] MEDS ORDERED: PHENYLEPHRINE 20 MG/250 ML PREMIX IV ONE (12:35)
[2017-01-31] MEDS ORDERED: KETOROLAC 30 MG/1 ML VIAL ONE (12:35)
[2017-01-31] MEDS ORDERED: PHENYLEPHRINE 1 MG/10 ML SYRINGE IV ONE (12:35)
[2017-01-31] MEDS ORDERED: ONDANSETRON 4 MG/2 ML VIAL ONE ×2 (12:35→14:17)
[2017-01-31] MEDS ORDERED: SUCCINYLCHOLINE 200 MG/10 ML VIAL ONE (12:35)
[2017-01-31] MEDS ORDERED: GLYCOPYRROLATE 0.4 MG/2 ML VIAL ONE (12:35)
[2017-01-31] MEDS ORDERED: LIDOCAINE 2% 5 ML VIAL ONE (12:35)
[2017-01-31] MEDS ORDERED: PROPOFOL 200 MG/20 ML VIAL IV ONE (12:35)
--- NOTE | 2017-01-31 13:43 | Operative Note ---
Date of procedure: 01/31/17 Pre-op diagnosis: small bowel obstruction Post-op diagnosis: same (secondary to adhesive band) Procedure: Procedure performed: Exploratory laparotomy with lysis of adhesions Procedure in detail: After informed consent was obtained, the patient was taken to the operating suite and laid supine on the operating table. After general anesthesia was induced Hightower catheter placed the abdomen was prepped and draped in usual sterile fashion. After procedural pause midline laparotomy incision was made and dissection carried down through skin and subcutaneous tissue scar and fascia. The abdominal cavity was entered above the umbilicus. This area was free of adhesions. As I continued the dissection inferiorly along the anterior abdominal wall there were adhesions from the omentum and small bowel up to the anterior abdominal wall and these were lysed sharply. Once down to the pelvis the omentum was freed from its attachments to the pelvic wall. This was a sharp band going down into the pelvis with a window and I suspect some bowel was coursing around this. As I remove this band was able to retract the omentum into the upper abdomen. Small bowel was then run from the ligament of Treitz to the ileocecal valve. The jejunum was mildly dilated and the distal jejunum and ileum was completely decompressed. I suspect that portions of jejunum were flopping over this band and causing a partial obstruction intermittently. There were some interloop adhesions of the small bowel that were also lysed. I then ran the colon from the cecum down to the peritoneal reflection in the rectum. There was some stool in the colon but no dilation or any mass is palpable. There was no mass is palpable in the small bowel. There was no obvious lymphadenopathy in the mesentery. Liver looked okay. Gallbladder was distended but normal in appearance. The stomach was inspected with the NG tube in place. Palpated the pylorus which was patent and I did not appreciate any mass or stricture in this area. First and second portion of the duodenum appeared normal and I did not palpate any abnormality in the mesentery or anywhere around the third and fourth portion of the duodenum. The stomach small bowel and colon all appeared healthy and viable with no areas of ischemia. There is no significant congestion present. There was minimal fluid in the abdomen that was suctioned. There was excellent hemostasis throughout the case. I found no other abnormalities. Abdomen was irrigated and suctioned. Fascia closed with #1 running looped PDS. Wound thoroughly irrigated and suction and the incision closed with abdelrahman. Sterile dressings were applied and the patient was taken back to recovery and then ICU in stable condition. All lap and needle counts were correct at the end of the case. Anesthesia: MARLEYA Surgeon / Physician: Aftab Manriquez Estimated blood loss: other (less than 10 mL) Specimens: none sent Condition: stable Disposition: ICU Results - Labs CBC & BMP: 01/31/17 04:41 01/31/17 04:41 Discharge Plan - Discharge Medications No Action Cholecalciferol (Vitamin D3) [Vitamin D3 Chew Tab] 1,000 unit PO DAILY traMADol TAB [Ultram] 50 mg PO Q4-6H PRN PRN Reason: Pain Mild To Moderate (1-7) Levothyroxine Tab [Synthroid Tab] 50 mcg PO DAILY@0700 Fenofibrate,Micronized [Antara] 90 mg PO DAILY Furosemide Tab [Lasix Tab] 20 mg PO DAILY Clonidine HCl [Clonidine HCl ER] 0.1 mg PO BID Gabapentin 300 mg PO BID Amoxicillin/Potassium Clav [Amox Tr-K Clv 875-125 mg Tab] 1 each PO BID Metformin HCl 1,000 mg PO BID Insulin Regular [HumuLIN R] 65 unit SUBCUT AC LUNCH Insulin Regular [HumuLIN R] 85 unit SUBCUT DAILY W/BREAKFAST Methocarbamol [Methocarbamol] 750 mg PO QID Gabapentin 1 tablet PO BEDTIME Multivitamin [One Daily] 1 each PO DAILY Verapamil HCl [Verapamil ER Tab] 240 mg PO DAILY Pantoprazole Sodium [Protonix] 40 mg PO DAILY Insulin Regular [HumuLIN R] 65 unit SUBCUT AC SUPPER - Follow Up or Referral - Forms/Instructions
[2017-01-31] MEDS ORDERED: ONDANSETRON 4 MG/2 ML VIAL IV PRN (14:13)
[2017-01-31] MEDS ORDERED: HYDROmorphone 2 MG/1 ML VIAL ONE (14:16)
[2017-01-31] MEDS: HYDROmorphone 2 MG/1 ML VIAL IV PRN ×4 (14:20→14:35)
[2017-01-31 14:38] LABS: Apearance,Urine CLOUDY (Clear); Bacteria,Urine Moderate /HPF (Few); Bilirubin,Urine Negative (Negative); Blood, Urine Negative (Negative); Glucose,Urine (UA) 50 mg/dL (Negative); Hyaline Casts,Urine 4 /LPF (0-3); Ketones,Urine 5 mg/dL (Negative); Nitrite,Urine Negative (Negative); Protein,Urine >=500 MG/DL; Squamous Epithelial Cell,Urine Occasional /HPF (0-10); Urine Color Yellow (Yellow); Urine Specific Gravity 1.016 (1.001-1.035); Urine Urobilinogen < 2.0 EU/DL (0.2-1.0); WBC,Urine 11 /HPF (0-6)
[2017-01-31] MEDS: CIPROFLOXACIN INJ 400 MG in PREMIX 1 EACH IV SCH (16:08)
[2017-01-31] MEDS: DILTIAZEM INJ 100 MG in SODIUM CHLORIDE 0.9% 100 ML IV SCH ×3 (16:45→16:49)
[2017-01-31] MEDS ORDERED: TRACE ELEMENTS (5) 1 ML, MULTIVITAMIN INJ 10 ML, INSULIN REGULAR 40 UNIT in AMINO ACIDS... IV SCH (17:00)
--- NOTE | 2017-01-31 17:03 | Anesthesia ---
Anesthesia Post OP - Post Ansesthetic Evaluation Patient seen in post op: Yes Resp: within normal limits CV: within normal limits Mental: within normal limits Temp: within normal limits [id number]: within normal limits Nausea and Vomiting: within normal limits Pain: within normal limits
[2017-01-31] MEDS ORDERED: fentaNYL 100 MCG/2 ML VIAL ONE (17:51)
[2017-01-31] MEDS ORDERED: ACETAMINOPHEN 1,000 MG/100 ML VIAL IV ONE (17:51)
[2017-01-31] MEDS ORDERED: LACTATED RINGERS 1,000 ML IV ONE (17:51)
[2017-01-31] MEDS ORDERED: SEVOFLURANE 1 UNIT/15 MINUTE INH ONE (17:51)
[2017-01-31] MEDS ORDERED: MIDAZOLAM 2 MG/2 ML VIAL ONE (17:51)
[2017-01-31] MEDS ORDERED: SODIUM CHLORIDE 0.9% 1,000 ML IV ONE (20:10)
[2017-01-31] MEDS ORDERED: cloNIDine 0.1 MG/24 HR PATCH TRANSDERM SCH (20:30)
[2017-02-01] MEDS: MORPHINE 2 MG/1 ML SYRINGE IV PRN ×6 (00:36→23:54)
[2017-02-01] MEDS: METOPROLOL TARTRATE 5 MG/5 ML VIAL IV PRN (01:16)
[2017-02-01] MEDS: CIPROFLOXACIN INJ 400 MG in PREMIX 1 EACH IV SCH ×2 (03:07→15:26)
[2017-02-01] MEDS: hydrALAZINE 20 MG/1 ML VIAL IV PRN (04:12)
[2017-02-01 05:05] LABS: Basophils # 0.1 10*3/uL (0.0-0.2); Basophils % 0.4 % (0.0-0.8); Eosinophils # 0.3 10*3/uL (0.0-0.87); Hematocrit 35.7 VOL% (35.7-47.0); Hemoglobin 11.3 GM/DL (12.0-16.0); Immature Granulocytes % 0.3 %; Immature Granulocytes Absolute 0.03 #; Lymphocytes # 3.9 10*3/uL (1.4-4.0); Lymphocytes % 34.1 % (21.3-54.2); Mean Corpuscular HGB Conc 31.7 GM/DL (32-36); Mean Corpuscular Hemoglobin 27 PG (27-34); Mean Corpuscular Volume 85.4 FL (87-102); Mean Platelet Volume 13.4 FL (9.6-12.0); Monocytes # 0.8 10*3/uL (0.11-0.8); Monocytes % 7.1 % (1.7-12.7); Neutrophils # 6.3 10*3/uL (1.4-7.4); Neutrophils % 55.1 % (38.7-73.9); Platelet Count 233 T/CUMM (130-400); Red Blood Count 4.18 MC/CUMM (3.8-5.5); White Blood Count 11.4 T/CUMM (4-12)
[2017-02-01 05:38] LABS: Calcium 8.1 MG/DL (8.5-10.1); Magnesium 1.8 MG/DL (1.8-2.4); Osmolality,Calculated 293.3 MOS/KG (273-304); Phosphorous 3.9 MG/DL (2.5-4.9); Potassium 4.1 MMOL/L (3.5-5.1)
[2017-02-01] MEDS: METOCLOPRAMIDE 10 MG/2 ML VIAL IV SCH ×4 (06:09→23:53)
[2017-02-01] MEDS: INSULIN LISPRO 100 UNIT/ML SUBCUT SCH ×4 (06:09→23:53)
[2017-02-01] MEDS: LEVOTHYROXINE 100 MCG VIAL IV SCH (06:10)
[2017-02-01] MEDS: DILTIAZEM INJ 100 MG in SODIUM CHLORIDE 0.9% 100 ML IV SCH ×4 (10:10→19:17)
[2017-02-01] MEDS: PANTOPRAZOLE 40 MG TABLET PO SCH (10:12)
[2017-02-01] MEDS: FLUTICASONE 50 MCG NASAL SPRAY 16 GM BOTTLE BOTH NARES SCH ×2 (10:12→20:23)
[2017-02-01] MEDS: cloNIDine 0.3 MG/24 HR PATCH TRANSDERM SCH (11:10)
--- NOTE | 2017-02-01 11:29 | Event Note ---
02/01/2017 Patient is stable postop with minimal NG tube drainage. Labs look stable at this time. Incisions clean and dry.
--- NOTE | 2017-02-01 11:52 | Hospitalist Progress Note ---
Assessment and Plan (1) Small bowel obstruction Status: Acute Assessment and plan: Status post exploratory lap with lysis of adhesions continue Reglan and TPN through PICC line Current Visit: Yes (2) Insulin dependent diabetes mellitus Status: Acute Assessment and plan: Stop D10 continue insulin sliding scale Current Visit: Yes (3) Hypertension Status: Acute Assessment and plan: Increase clonidine patch to 0.3 and increase diltiazem drip to 15 Current Visit: Yes (4) Hypothyroidism Status: Acute Assessment and plan: cont levothyroxine 25 mcg IV daily Current Visit: Yes Hospitalist: Subjective Interval history: Patient had some bowel sounds today. Still feels pretty tender and miserable. Blood pressure is volatile was low last night is now high again this morning. We will of her clonidine patch continue her on the Dilt drip. She is requiring ICU due to blood pressure management Exam - Constitutional Vitals: Period Temp Pulse Resp BP Sys/Evangelista Pulse Ox Last 24 Hr 97.6 F-99.4 F 88-126 12-23 105-191/65-99 93-100 Exam: Heart Rate-[RRR] Lungs-[CTAB] GI-[diminished bowel sounds, distended and tender Ext-[no edema] Neuro alert and oriented 3, motor 5 out of 5 Psych depressed mood and affect General no acute distress Results - Labs CBC & BMP: 02/01/17 04:37 02/01/17 04:37 Lab Results: I have reviewed the past 24 hour labs Labs: UA is positive for infection
[2017-02-01] MEDS: SODIUM CHLOR 0.45% KCL 20 MEQ 20 MEQ/1,000 ML BAG IV SCH ×2 (12:12→15:20)
[2017-02-01] MEDS: LABETALOL 20 MG/4 ML SYRINGE IV PRN ×2 (16:10→20:24)
[2017-02-01] MEDS: TRACE ELEMENTS (5) 1 ML, MULTIVITAMIN INJ 10 ML, INSULIN REGULAR 40 UNIT in AMINO ACIDS... IV SCH (16:32)
[2017-02-01] MEDS: PANTOPRAZOLE 40 MG VIAL IV SCH (20:24)
[2017-02-02] MEDS: LABETALOL 20 MG/4 ML SYRINGE IV PRN ×2 (00:18→04:14)
[2017-02-02] MEDS: DILTIAZEM INJ 100 MG in SODIUM CHLORIDE 0.9% 100 ML IV SCH ×2 (01:38→15:00)
[2017-02-02] MEDS: CIPROFLOXACIN INJ 400 MG in PREMIX 1 EACH IV SCH ×2 (04:15→15:56)
[2017-02-02 04:25] LABS: Basophils % 0.4 % (0.0-0.8); Eosinophils # 0.8 10*3/uL (0.0-0.87); Eosinophils % 7.2 % (0.00-10.9); Hemoglobin 10.3 GM/DL (12.0-16.0); Immature Granulocytes % 0.3 %; Immature Granulocytes Absolute 0.03 #; Lymphocytes # 3.5 10*3/uL (1.4-4.0); Lymphocytes % 31.7 % (21.3-54.2); Mean Corpuscular HGB Conc 31.2 GM/DL (32-36); Mean Corpuscular Hemoglobin 28 PG (27-34); Mean Corpuscular Volume 88.9 FL (87-102); Mean Platelet Volume 12.9 FL (9.6-12.0); Monocytes # 0.9 10*3/uL (0.11-0.8); Monocytes % 7.8 % (1.7-12.7); Neutrophils # 5.9 10*3/uL (1.4-7.4); Neutrophils % 52.6 % (38.7-73.9); Platelet Count 212 T/CUMM (130-400); Red Blood Count 3.71 MC/CUMM (3.8-5.5); Red Cell Distribution Width 14.9 % (9.3-17.3); White Blood Count 11.1 T/CUMM (4-12)
[2017-02-02] MEDS: METOCLOPRAMIDE 10 MG/2 ML VIAL IV SCH ×4 (06:02→23:47)
[2017-02-02] MEDS: INSULIN LISPRO 100 UNIT/ML SUBCUT SCH ×4 (06:02→23:47)
[2017-02-02] MEDS: LEVOTHYROXINE 100 MCG VIAL IV SCH (06:03)
--- NOTE | 2017-02-02 07:49 | Hospitalist Progress Note ---
Assessment and Plan (1) Small bowel obstruction Status: Acute Assessment and plan: Status post exploratory lap with lysis of adhesions continue Reglan and TPN through PICC line Current Visit: Yes (2) Insulin dependent diabetes mellitus Status: Acute Assessment and plan: Patient has insulin in her TPN but needs additional Lantus will start 10 units subcu daily and continue the insulin sliding scale Current Visit: Yes (3) Hypertension Status: Acute Assessment and plan: Coreg 25 mg p.o. twice daily. Wean completely off the diltiazem. We will probably need to lower her dose of clonidine Current Visit: Yes (4) Hypothyroidism Status: Acute Assessment and plan: cont levothyroxine 25 mcg IV daily Current Visit: Yes Hospitalist: Subjective Interval history: Patient's blood pressure is difficult to control. She was having good bowel sounds. She is not passing gas however. We are going to clamp her NG and start her on Coreg in hopes of getting her pressure down that we can get her off the drips to move her to the third floor. She is also asking for her SCDs to be discontinued as they are bothering her. She is far enough out from surgery were I am starting DVT prophylaxis Lovenox. Exam - Constitutional Vitals: Period Temp Pulse Resp BP Sys/Evangelista Pulse Ox Last 24 Hr 97.5 F-99.1 F 64-116 14-22 123-199/60-99 94-99 Exam: Heart Rate-[RRR] Lungs-[CTAB] GI-[good bowel sounds, distended and tender Ext-[no edema] Neuro alert and oriented 3, motor 5 out of 5 Psych depressed mood and flat affect General no acute distress Results - Labs CBC & BMP: 02/02/17 04:00 02/01/17 04:37 Lab Results: I have reviewed the past 24 hour labs Labs: Urine culture negative
[2017-02-02] MEDS: ENOXAPARIN 30 MG/0.3 ML SYRINGE SUBCUT SCH (09:24)
[2017-02-02] MEDS: INSULIN GLARGINE 100 UNIT/ML SUBCUT SCH (09:25)
[2017-02-02] MEDS: CARVEDILOL 25 MG TABLET PO SCH ×2 (09:27→21:22)
[2017-02-02] MEDS: PANTOPRAZOLE 40 MG VIAL IV SCH ×2 (09:27→21:22)
[2017-02-02] MEDS: MORPHINE 2 MG/1 ML SYRINGE IV PRN ×3 (09:46→21:23)
[2017-02-02] MEDS: FLUTICASONE 50 MCG NASAL SPRAY 16 GM BOTTLE BOTH NARES SCH ×2 (09:47→21:21)
--- NOTE | 2017-02-02 10:05 | XRay Report ---
XR KUB Indication: Ileus Comparison: 31 January 2017 Findings: No free fluid or free air seen. The bowel gas pattern appears within normal limits. NG tube appears similar to previous. No abnormal calcifications are present. No other abnormality is identified. Impression: No evidence of acute process demonstrated PROCEDURE INTERPRETED AT [facility] DEPARTMENT OF RADIOLOGY Final Report Signed by: Dr. Hakeem Munoz
--- NOTE | 2017-02-02 10:48 | Event Note ---
02/02/2017. Patient generally doing well with very minimal NG tube drainage. Bowel sounds a little more active but still no flatus or bowel movement. Wounds are clean and dry. Patient seems to be progressing well in 9 think from our standpoint she could move to the floor at any time. Medicine is holding her because of her blood pressure at this point.
[2017-02-02] MEDS: FLUoxetine 10 MG CAPSULE PO SCH (12:01)
[2017-02-02] MEDS: amLODIPine 10 MG TABLET PO SCH (15:55)
[2017-02-02] MEDS: TRACE ELEMENTS (5) 1 ML, MULTIVITAMIN INJ 10 ML, INSULIN REGULAR 40 UNIT in AMINO ACIDS... IV SCH (16:53)
[2017-02-02] MEDS ORDERED: niCARdipine INJ 25 MG in SODIUM CHLORIDE 0.9% 240 ML IV SCH (18:30)
[2017-02-02] MEDS: ONDANSETRON 4 MG/2 ML VIAL IV PRN (21:22)
[2017-02-02] MEDS: niCARdipine INJ 50 MG in SODIUM CHLORIDE 0.9% 480 ML IV SCH (22:57)
[2017-02-03] MEDS: ALPRAZolam 0.25 MG TABLET PO PRN ×2 (00:35→21:45)
[2017-02-03] MEDS: MORPHINE 2 MG/1 ML SYRINGE IV PRN ×4 (01:49→21:45)
[2017-02-03] MEDS: CIPROFLOXACIN INJ 400 MG in PREMIX 1 EACH IV SCH ×2 (04:40→15:29)
[2017-02-03 05:06] LABS: Calcium 8.8 MG/DL (8.5-10.1); Magnesium 2.2 MG/DL (1.8-2.4); Osmolality,Calculated 299.1 MOS/KG (273-304); Phosphorous 2.8 MG/DL (2.5-4.9); Potassium 4.5 MMOL/L (3.5-5.1); Prealbumin 16.2 MG/DL (20-40)
[2017-02-03] MEDS: niCARdipine INJ 50 MG in SODIUM CHLORIDE 0.9% 480 ML IV SCH ×2 (05:53→13:33)
[2017-02-03] MEDS: INSULIN LISPRO 100 UNIT/ML SUBCUT SCH ×3 (06:23→18:07)
[2017-02-03] MEDS: LEVOTHYROXINE 100 MCG VIAL IV SCH (06:23)
[2017-02-03] MEDS: METOCLOPRAMIDE 10 MG/2 ML VIAL IV SCH ×3 (06:25→18:07)
--- NOTE | 2017-02-03 08:53 | Hospitalist Progress Note ---
Assessment and Plan (1) Hypertension Status: Acute Assessment and plan: Impression: #1. Hypertension #2. Type II DM Recommendations: Continue current care of blood pressure. Once her NG tube is out, we can titrate oral medications if needed. Current Visit: Yes Hospitalist: Subjective Interval history: Follow-up hypertension. The patient's blood pressure is elevated on transdermal clonidine, oral Norvasc , oral Coreg, and IV Cardene. She's been on antihypertensives for over 10 years , and reports that her blood pressure is usually adequately controlled at home. She reports no stool or flatus in the past day or so. NG tube remains intact. Exam - Constitutional Vitals: Period Temp Pulse Resp BP Sys/Evangelista Pulse Ox Last 24 Hr 97.9 F-98.7 F 68-98 14-26 123-197/49-94 94-100 Blood pressure remained somewhat labile. Heart is regular with no murmur or gallop. Lungs are clear with no rales or wheezes. Abdomen is soft and distended with only rare bowel sounds. She is awake and alert. She moves all 4 extremities. Results - Labs CBC & BMP: 02/02/17 04:00 02/03/17 04:10 Lab Results: I have reviewed the past 24 hour labs
[2017-02-03] MEDS: INSULIN GLARGINE 100 UNIT/ML SUBCUT SCH (09:57)
[2017-02-03] MEDS: amLODIPine 10 MG TABLET PO SCH (09:58)
[2017-02-03] MEDS: CARVEDILOL 25 MG TABLET PO SCH ×2 (09:58→21:46)
[2017-02-03] MEDS: ENOXAPARIN 30 MG/0.3 ML SYRINGE SUBCUT SCH (09:58)
[2017-02-03] MEDS: FLUTICASONE 50 MCG NASAL SPRAY 16 GM BOTTLE BOTH NARES SCH ×2 (09:58→21:46)
[2017-02-03] MEDS: PANTOPRAZOLE 40 MG VIAL IV SCH ×2 (09:58→21:44)
[2017-02-03] MEDS: FLUoxetine 10 MG CAPSULE PO SCH (09:59)
--- NOTE | 2017-02-03 12:03 | Event Note ---
Vital signs stable. NG tube with minimal output. She says she is feeling good. She wants to eat and drink. On exam her abdomen is soft and appropriately tender. Incision looks good. NG tube with minimal output. She has a few bowel sounds present. We'll plan to remove NG and start clear liquids. Can be transferred to the floor when okay with hospitalist service
[2017-02-03] MEDS ORDERED: AMINO ACIDS/DEXT/LYTES 5-15% 2,000 ML IV SCH (13:26)
[2017-02-03] MEDS ORDERED: DEXTROSE 10% 1,000 ML IV PRN (13:26)
[2017-02-03] MEDS: FAT EMULSION 20% 250 ML IV SCH (15:28)
[2017-02-03] MEDS: [UNRECOGNIZED DRUG - OTHER] IV SCH (18:06)
[2017-02-03] MEDS: INSULIN REGULAR IV SCH (18:06)
[2017-02-03] MEDS: TRACE ELEMENTS IV SCH (18:06)
[2017-02-03] MEDS: MULTIVITAMIN IV SCH (18:06)
[2017-02-03] MEDS: ONDANSETRON 4 MG/2 ML VIAL IV PRN (21:44)
[2017-02-04] MEDS: METOCLOPRAMIDE 10 MG/2 ML VIAL IV SCH ×4 (00:17→18:41)
[2017-02-04] MEDS: INSULIN LISPRO 100 UNIT/ML SUBCUT SCH ×4 (00:17→18:36)
[2017-02-04] MEDS: MORPHINE 2 MG/1 ML SYRINGE IV PRN ×2 (03:21→15:13)
[2017-02-04] MEDS: niCARdipine INJ 50 MG in SODIUM CHLORIDE 0.9% 480 ML IV SCH ×2 (03:28→15:25)
[2017-02-04] MEDS: CIPROFLOXACIN INJ 400 MG in PREMIX 1 EACH IV SCH ×2 (03:30→18:36)
[2017-02-04] MEDS: LEVOTHYROXINE 100 MCG VIAL IV SCH (06:02)
[2017-02-04] MEDS: ALPRAZolam 0.25 MG TABLET PO PRN (10:24)
[2017-02-04] MEDS: FLUoxetine 10 MG CAPSULE PO SCH (10:24)
[2017-02-04] MEDS: INSULIN GLARGINE 100 UNIT/ML SUBCUT SCH (10:25)
[2017-02-04] MEDS: amLODIPine 10 MG TABLET PO SCH (10:25)
[2017-02-04] MEDS: CARVEDILOL 25 MG TABLET PO SCH ×2 (10:25→21:00)
[2017-02-04] MEDS: ENOXAPARIN 30 MG/0.3 ML SYRINGE SUBCUT SCH (10:28)
[2017-02-04] MEDS: FLUTICASONE 50 MCG NASAL SPRAY 16 GM BOTTLE BOTH NARES SCH ×2 (10:31→20:59)
[2017-02-04] MEDS: PANTOPRAZOLE 40 MG VIAL IV SCH ×2 (10:31→20:59)
--- NOTE | 2017-02-04 11:06 | Hospitalist Progress Note ---
Assessment and Plan (1) Hypertension Status: Acute Assessment and plan: Impression: #1. Hypertension #2. Type II DM Recommendations: I will review her oral medications, and begin these as needed. This note was completed using [employer] voice recognition software. There may be pie cutter errors as a result. Current Visit: Yes Hospitalist: Subjective Interval history: Follow-up hypertension. The patient's NG tube is out. She is up in the chair. She offers no complaints. She has tolerated liquids without any problem. Exam - Constitutional Vitals: Period Temp Pulse Resp BP Sys/Evangelista Pulse Ox Last 24 Hr 98.2 F-98.8 F 71-104 14-26 100-177/54-100 92-100 She remains afebrile. Blood pressure is acceptable, with both low and high readings throughout the past 24 hours. Heart is regular with no murmur or gallop. Lungs are clear with no rales or wheezes. Abdomen appears soft with occasional bowel sounds. Results - Labs CBC & BMP: 02/02/17 04:00 02/03/17 04:10
--- NOTE | 2017-02-04 11:48 | Event Note ---
Afebrile vital signs stable. Hypertension improved. On Cardene drip. He reports occasional flatus no bowel movement. NG tube was removed yesterday and she's been tolerating clear liquids. She denies any nausea or vomiting. On exam her abdomen is soft but a bit more distended today. She has appropriate tenderness. Bowel sounds are present. No bowel movement yet. Continue clear liquids as tolerated for now. Awaiting further return of bowel function before advancing diet.
--- NOTE | 2017-02-04 12:06 | Physician Query Form ---
CLICK EDIT DOCUMENT TO SELECT QUERY ANSWER --> OK --> SIGN Chanel Belcher RN Clinical Cyber Incident Handler W) [phone] (f) [phone] [email or web address]: Make your selection(s) from the choices in EACH section by typing an "x" and enter comments in the comment section. Please use your independent medical judgment in providing your response. This request does not imply that any particular answer is desired or expected. CLINCAL INDICATORS: (Providers should not edit this section) Based on documentation of "Blood pressure is running too high. She is being transferred to the ICU for start a drip for her hypertension". Blood pressure of 209/125. Pt. treated with IV Cardene. Note: Hypertensive crises can present as hypertensive urgency or hypertensive emergency. Clarify which, if any of the following, is a more accurate diagnosis reflecting the type and acuity of the documented hypertension: TYPE: ( x) Hypertensive Urgency ( ) Hypertensive Emergency ( ) Uncontrolled chronic hypertension at baseline ( ) Other, please specify: ( ) Clinically unable to determine Criteria Source - Up to Date (This topic last updated: Jan 31, 2016) HYPERTENSIVE URGENCY: Severe hypertension (usually a diastolic blood pressure above 120 mmHg) in asymptomatic patients is referred to as hypertensive urgency. There is no proven benefit from rapid reduction in blood pressure in asymptomatic patients who have no evidence of acute end-organ damage and are at little short-term risk. HYPERTENSIVE EMERGENCY: Severe hypertension (usually a diastolic blood pressure above 120 mmHg) with evidence of acute end-organ damage is defined as a hypertensive emergency. A hypertensive emergency can be life threatening and requires immediate treatment, usually with parenteral medications in a monitored setting. COMMENTS: Use of terms such as suspected, likely, or probable (associated with a specific diagnosis that is being evaluated, monitored, or treated as if it exists) are acceptable and can be restated in the discharge summary if not ruled out. MTDD
[2017-02-04] MEDS: FAT EMULSION 20% 250 ML IV SCH (15:21)
[2017-02-04] MEDS: MULTIVITAMIN IV SCH (18:27)
[2017-02-04] MEDS: [UNRECOGNIZED DRUG - OTHER] IV SCH (18:27)
[2017-02-04] MEDS: TRACE ELEMENTS IV SCH (18:27)
[2017-02-04] MEDS: INSULIN REGULAR IV SCH (18:27)
[2017-02-05] MEDS: METOCLOPRAMIDE 10 MG/2 ML VIAL IV SCH ×4 (00:40→17:40)
[2017-02-05] MEDS: ONDANSETRON 4 MG/2 ML VIAL IV PRN ×3 (00:40→17:20)
[2017-02-05] MEDS: MORPHINE 2 MG/1 ML SYRINGE IV PRN ×3 (00:40→17:15)
[2017-02-05] MEDS: INSULIN LISPRO 100 UNIT/ML SUBCUT SCH ×4 (00:41→17:47)
[2017-02-05] MEDS: niCARdipine INJ 50 MG in SODIUM CHLORIDE 0.9% 480 ML IV SCH ×2 (00:43→08:01)
[2017-02-05] MEDS: CIPROFLOXACIN INJ 400 MG in PREMIX 1 EACH IV SCH ×2 (03:23→16:00)
[2017-02-05] MEDS: LEVOTHYROXINE 100 MCG VIAL IV SCH (06:11)
--- NOTE | 2017-02-05 08:28 | Event Note ---
Afebrile vital signs stable. Tolerating clear liquids slowly without any nausea or vomiting. She reports some flatus. No bowel movement. Abdomen is soft and mildly distended with some bowel sounds present. She is appropriately tender in the midline incision looks okay. We'll continue with clear liquids for now. I'll start Reglan. Still on Cardizem drip.
[2017-02-05] MEDS: CARVEDILOL 25 MG TABLET PO SCH ×2 (09:30→21:05)
[2017-02-05] MEDS: amLODIPine 10 MG TABLET PO SCH (09:30)
[2017-02-05] MEDS: FLUoxetine 10 MG CAPSULE PO SCH (09:30)
[2017-02-05] MEDS: PANTOPRAZOLE 40 MG VIAL IV SCH ×2 (09:31→21:05)
[2017-02-05] MEDS: ENOXAPARIN 30 MG/0.3 ML SYRINGE SUBCUT SCH (09:31)
[2017-02-05] MEDS: INSULIN GLARGINE 100 UNIT/ML SUBCUT SCH (09:31)
[2017-02-05] MEDS: FLUTICASONE 50 MCG NASAL SPRAY 16 GM BOTTLE BOTH NARES SCH ×2 (10:02→21:08)
--- NOTE | 2017-02-05 11:25 | Hospitalist Progress Note ---
Assessment and Plan (1) Hypertension Status: Acute Assessment and plan: Impression: #1. Hypertension #2. Type II DM Recommendations: She is already on a good oral regimen. I think we can add one more drug to try to get her blood pressure more reasonably controlled and discontinue the IV Cardene. This note was completed using [employer] voice recognition software. There may be silver chaser errors as a result. Current Visit: Yes Hospitalist: Subjective Interval history: Follow-up hypertension. The patient is continuing to receive Norvasc, topical clonidine, and labetalol. She is also on a Cardene infusion, although at a slow rate. Blood pressure is finally trending down. She says that she feels pretty good. She is passing flatus. Exam - Constitutional Vitals: Period Temp Pulse Resp BP Sys/Evangelista Pulse Ox Last 24 Hr 97.8 F-98.5 F 78-110 16-30 102-208/58-147 97-100 Systolic blood pressure is about 160 or so when I was in the room. Heart is regular with distant tones and no murmur or gallop. Lungs are clear with no rales or wheezes. Abdomen is protuberant with good bowel sounds. Results - Labs CBC & BMP: 02/02/17 04:00 02/03/17 04:10
[2017-02-05] MEDS: CAPTOPRIL 6.25 MG TABLET PO SCH ×2 (12:28→21:05)
[2017-02-05] MEDS: FAT EMULSION 20% 250 ML IV SCH (14:47)
[2017-02-05] MEDS ORDERED: MULTIVITAMIN IV SCH (17:00)
[2017-02-05] MEDS ORDERED: TRACE ELEMENTS IV SCH (17:00)
[2017-02-05] MEDS ORDERED: [UNRECOGNIZED DRUG - OTHER] IV SCH (17:00)
[2017-02-05] MEDS ORDERED: INSULIN REGULAR IV SCH (17:00)
[2017-02-05] MEDS ORDERED: MORPHINE 2 MG/1 ML SYRINGE ONE (17:02)
[2017-02-06] MEDS: INSULIN LISPRO 100 UNIT/ML SUBCUT SCH ×4 (00:15→18:04)
[2017-02-06] MEDS: MORPHINE 2 MG/1 ML SYRINGE IV PRN ×3 (00:15→20:47)
[2017-02-06] MEDS: METOCLOPRAMIDE 10 MG/2 ML VIAL IV SCH ×4 (00:15→17:57)
[2017-02-06] MEDS: ONDANSETRON 4 MG/2 ML VIAL IV PRN ×3 (00:24→22:25)
[2017-02-06] MEDS: niCARdipine INJ 50 MG in SODIUM CHLORIDE 0.9% 480 ML IV SCH (00:42)
[2017-02-06] MEDS: LABETALOL 20 MG/4 ML SYRINGE IV PRN ×3 (01:01→17:06)
[2017-02-06] MEDS: diphenhydrAMINE CAP 25 MG CAPSULE PO PRN (01:37)
[2017-02-06] MEDS: CIPROFLOXACIN INJ 400 MG in PREMIX 1 EACH IV SCH (04:14)
[2017-02-06 06:02] LABS: Basophils # 0.1 10*3/uL (0.0-0.2); Basophils % 0.6 % (0.0-0.8); Eosinophils # 0.9 10*3/uL (0.0-0.87); Hematocrit 29.4 VOL% (35.7-47.0); Hemoglobin 9.1 GM/DL (12.0-16.0); Immature Granulocytes % 0.4 %; Immature Granulocytes Absolute 0.04 #; Lymphocytes # 5.3 10*3/uL (1.4-4.0); Lymphocytes % 48.1 % (21.3-54.2); Mean Corpuscular Hemoglobin 27 PG (27-34); Mean Platelet Volume 13.4 FL (9.6-12.0); Monocytes # 0.9 10*3/uL (0.11-0.8); Monocytes % 8.1 % (1.7-12.7); Neutrophils # 3.9 10*3/uL (1.4-7.4); Neutrophils % 34.8 % (38.7-73.9); Platelet Count 239 T/CUMM (130-400); Red Blood Count 3.42 MC/CUMM (3.8-5.5); Red Cell Distribution Width 14.2 % (9.3-17.3); White Blood Count 11.1 T/CUMM (4-12)
[2017-02-06] MEDS: LEVOTHYROXINE 100 MCG VIAL IV SCH (06:24)
[2017-02-06 06:34] LABS: Osmolality,Calculated 293.3 MOS/KG (273-304); Potassium 4.5 MMOL/L (3.5-5.1)
[2017-02-06 06:40] LABS: Hypochromasia 2+; Magnesium 1.9 MG/DL (1.8-2.4); Microcytosis 2+; Phosphorous 4.1 MG/DL (2.5-4.9); Prealbumin 23.3 MG/DL (20-40)
[2017-02-06] MEDS: PANTOPRAZOLE 40 MG VIAL IV SCH ×2 (08:43→20:43)
[2017-02-06] MEDS: INSULIN GLARGINE 100 UNIT/ML SUBCUT SCH (08:44)
[2017-02-06] MEDS: CAPTOPRIL 6.25 MG TABLET PO SCH ×2 (08:44→20:43)
[2017-02-06] MEDS: FLUoxetine 10 MG CAPSULE PO SCH (08:44)
[2017-02-06] MEDS: ENOXAPARIN 30 MG/0.3 ML SYRINGE SUBCUT SCH (08:44)
[2017-02-06] MEDS: amLODIPine 10 MG TABLET PO SCH (08:44)
[2017-02-06] MEDS: CARVEDILOL 25 MG TABLET PO SCH ×2 (08:44→20:43)
[2017-02-06] MEDS: FLUTICASONE 50 MCG NASAL SPRAY 16 GM BOTTLE BOTH NARES SCH ×2 (08:46→20:44)
--- NOTE | 2017-02-06 09:33 | Hospitalist Progress Note ---
Assessment and Plan (1) Hypertension Status: Acute Assessment and plan: Impression: #1. Hypertension #2. Type II DM Recommendations: Continue current antihypertensives. Transfer to the floor per primary service. This note was completed using [employer] voice recognition software. There may be turret lathe machinist errors as a result. Current Visit: Yes Hospitalist: Subjective Interval history: Follow-up hypertension. The patient's blood pressure is not adequately controlled after the institution of captopril. She is off of the Cardene. She has good bowel sounds but no stool yet. Exam - Constitutional Vitals: Period Temp Pulse Resp BP Sys/Evangelista Pulse Ox Last 24 Hr 96.7 F-99.4 F 68-91 14-27 124-179/59-95 97-100 Results - Labs CBC & BMP: 02/06/17 04:27 02/06/17 04:27 Lab Results: I have reviewed the past 24 hour labs
--- NOTE | 2017-02-06 09:45 | Event Note ---
Afebrile vital signs stable. Patient is doing well. No complaints. Tolerating clear liquids. Having flatus no bowel movements. No nausea or vomiting. She is hungry and wants something else to eat. She is off her Cardizem drip. She's been okayed by the hospitalist to transfer to the floor. On exam her abdomen is soft with no significant tenderness. Incision looks good. She has good bowel sounds. Still mildly distended. We'll advance to full liquids. Transfer to the floor.
[2017-02-06] MEDS: FAT EMULSION 20% 250 ML IV SCH (14:06)
[2017-02-06] MEDS: MULTIVITAMIN IV SCH (19:00)
[2017-02-06] MEDS: INSULIN REGULAR IV SCH (19:00)
[2017-02-06] MEDS: TRACE ELEMENTS IV SCH (19:00)
[2017-02-06] MEDS: [UNRECOGNIZED DRUG - OTHER] IV SCH (19:00)
[2017-02-07] MEDS: METOCLOPRAMIDE 10 MG/2 ML VIAL IV SCH ×4 (00:08→17:52)
[2017-02-07] MEDS: INSULIN LISPRO 100 UNIT/ML SUBCUT SCH ×4 (00:08→18:01)
[2017-02-07] MEDS: LABETALOL 20 MG/4 ML SYRINGE IV PRN ×2 (04:51→12:52)
[2017-02-07] MEDS: ONDANSETRON 4 MG/2 ML VIAL IV PRN ×2 (04:55→10:44)
[2017-02-07] MEDS ORDERED: HEPARIN LOCK FLUSH 500 UNIT/5 ML SYRINGE IV ONE (05:53)
[2017-02-07] MEDS: LEVOTHYROXINE 100 MCG VIAL IV SCH (07:33)
[2017-02-07] MEDS: CAPTOPRIL 6.25 MG TABLET PO SCH ×2 (10:32→20:11)
--- NOTE | 2017-02-07 10:32 | XRay Report ---
Referring Physician: Aftab Manriquez Exam: XR abdomen 2V Date: February 07, 2017 at 10:11 AM Reason: Possible bowel obstruction Comparison: KUB February 02, 2017 Findings: There are several distended loops of small bowel with air-fluid levels present, mainly within the left abdomen. There is also mild air within the colon. This is concerning for partial small bowel obstruction. Surgical clips are seen at the abdomen near midline. No free air is identified. The renal shadows are largely obscured. The osseous structures appear stable. Impression: There are distended loops of small bowel with air-fluid levels present, mainly within the left abdomen. Mild air is seen within the colon, and this is concerning for partial small bowel obstruction. PROCEDURE INTERPRETED AT [facility] DEPARTMENT OF RADIOLOGY Final Report Signed by: Dr. Jose Cruz Dixon
[2017-02-07] MEDS: amLODIPine 10 MG TABLET PO SCH (10:33)
[2017-02-07] MEDS: CARVEDILOL 25 MG TABLET PO SCH ×2 (10:33→20:12)
[2017-02-07] MEDS: ENOXAPARIN 30 MG/0.3 ML SYRINGE SUBCUT SCH (10:34)
[2017-02-07] MEDS: FLUoxetine 10 MG CAPSULE PO SCH (10:34)
[2017-02-07] MEDS: INSULIN GLARGINE 100 UNIT/ML SUBCUT SCH (10:35)
[2017-02-07] MEDS: PANTOPRAZOLE 40 MG VIAL IV SCH ×2 (10:39→20:21)
[2017-02-07] MEDS: FLUTICASONE 50 MCG NASAL SPRAY 16 GM BOTTLE BOTH NARES SCH ×2 (10:46→20:24)
--- NOTE | 2017-02-07 11:24 | Event Note ---
Postop day 7 status post exploratory laparotomy with lysis of adhesions for small bowel obstruction. Patient was transferred out of the ICU yesterday where she was being held for management of her severe hypertension. She had been tolerating clear liquids and was advanced to full liquids yesterday. She had a small bowel movement yesterday but then states that she threw up last night. She feels nauseated this morning and just threw up some more. On exam her abdomen is soft with minimal tenderness and mild distention. No peritoneal signs. Incision looks okay. Abdominal x-ray reveals a few small bowel loops that appeared dilated mostly in the left abdomen with some air-fluid levels. There is some air in the colon. Impression: Ileus Plan: We'll make her nothing by mouth. If she has further nausea or vomiting of instructed the nursing staff to place an NG tube. She has been on IV Reglan. Hospital medicine managing her medical problems.
--- NOTE | 2017-02-07 14:31 | Hospitalist Progress Note ---
Assessment and Plan - Time spent with patient Time spent with patient: Greater than 30 minutes (1) Hypothyroidism Status: Acute Current Visit: Yes (2) Insulin dependent diabetes mellitus Status: Acute Current Visit: Yes (3) Small bowel obstruction Status: Acute Current Visit: Yes (4) Hypertension Status: Acute Assessment and plan: Continue current meds as there seems to be some improvement. I however expect Bp to become unctrolled now that she is back to being NPO. We will continue with IV Labetalol PRN for systolic Bp >180/95mmhg while she is NPO. Resume her other Bp meds as soon as she can tolerate Following Current Visit: Yes Hospitalist: Subjective Interval history: Follow up for medical management of HTN and DM Bp is better today She did report episode of vomiting today, now NPO No fever Exam - Constitutional Vitals: Period Temp Pulse Resp BP Sys/Evangelista Pulse Ox Last 24 Hr 96.5 F-99.3 F 20-83 18-20 131-197/60-96 95-98 General appearance: no acute distress - Head Head exam: Present: normal inspection - Eye Pupils: Present: EMRE, normal accommodation - ENT ENT exam: Present: normal exam - Respiratory Respiratory exam: Present: clear to auscultation bilaterally. Absent: accessory muscle use, chest wall tenderness - GI/Abdominal GI/Abdominal exam: Present: normal bowel sounds. Absent: ascites, distended - Extremities Exam Extremities exam: Present: normal inspection, full ROM - Neurological Exam Neurological exam: Present: alert, oriented X3 - Skin Skin exam: Present: normal color, warm, dry Results - Labs CBC & BMP: 02/06/17 04:27 02/06/17 04:27 Lab Results: I have reviewed the past 24 hour labs
[2017-02-07] MEDS: FAT EMULSION 20% 250 ML IV SCH (14:44)
[2017-02-07] MEDS: [UNRECOGNIZED DRUG - OTHER] IV SCH (17:51)
[2017-02-07] MEDS: MULTIVITAMIN IV SCH (17:51)
[2017-02-07] MEDS: INSULIN REGULAR IV SCH (17:51)
[2017-02-07] MEDS: TRACE ELEMENTS IV SCH (17:51)
[2017-02-07] MEDS: MORPHINE 2 MG/1 ML SYRINGE IV PRN (20:19)
[2017-02-08] MEDS: LABETALOL 20 MG/4 ML SYRINGE IV PRN ×2 (00:17→06:50)
[2017-02-08] MEDS: METOCLOPRAMIDE 10 MG/2 ML VIAL IV SCH ×4 (00:21→17:42)
[2017-02-08] MEDS: INSULIN LISPRO 100 UNIT/ML SUBCUT SCH ×4 (00:29→18:22)
[2017-02-08 06:10] LABS: Basophils # 0.1 10*3/uL (0.0-0.2); Basophils % 0.5 % (0.0-0.8); Eosinophils # 0.9 10*3/uL (0.0-0.87); Eosinophils % 6.7 % (0.00-10.9); Hematocrit 30.8 VOL% (35.7-47.0); Hemoglobin 9.4 GM/DL (12.0-16.0); Immature Granulocytes % 0.4 %; Immature Granulocytes Absolute 0.05 #; Lymphocytes # 5.9 10*3/uL (1.4-4.0); Lymphocytes % 46.4 % (21.3-54.2); Mean Corpuscular HGB Conc 30.5 GM/DL (32-36); Mean Corpuscular Hemoglobin 27 PG (27-34); Mean Corpuscular Volume 87.7 FL (87-102); Mean Platelet Volume 13.2 FL (9.6-12.0); Monocytes % 7.9 % (1.7-12.7); Neutrophils # 4.9 10*3/uL (1.4-7.4); Neutrophils % 38.1 % (38.7-73.9); Platelet Count 248 T/CUMM (130-400); Red Blood Count 3.51 MC/CUMM (3.8-5.5); Red Cell Distribution Width 14.2 % (9.3-17.3); White Blood Count 12.8 T/CUMM (4-12)
[2017-02-08 06:37] LABS: Calcium 9.3 MG/DL (8.5-10.1); Osmolality,Calculated 291.7 MOS/KG (273-304); Potassium 3.6 MMOL/L (3.5-5.1)
[2017-02-08] MEDS: LEVOTHYROXINE 100 MCG VIAL IV SCH (06:47)
[2017-02-08 07:04] LABS: Eosinophils 7 % (0-10); Lymphocytes 45 % (20-55); Metamyelocytes 2 %; Promyelocytes 1 %; Segmented Neutrophils 39 % (50-85); Total Cells Counted 100
[2017-02-08 07:05] LABS: Hypochromasia 2+; Platelet Estimate Normal
[2017-02-08] MEDS ORDERED: HEPARIN LOCK FLUSH 500 UNIT/5 ML SYRINGE IV ONE (08:35)
[2017-02-08] MEDS: CAPTOPRIL 6.25 MG TABLET PO SCH ×3 (08:36→20:55)
[2017-02-08] MEDS: amLODIPine 10 MG TABLET PO SCH ×2 (08:36→12:28)
[2017-02-08] MEDS: FLUoxetine 10 MG CAPSULE PO SCH (08:36)
[2017-02-08] MEDS: CARVEDILOL 25 MG TABLET PO SCH ×3 (08:36→20:55)
[2017-02-08] MEDS: MORPHINE 2 MG/1 ML SYRINGE IV PRN ×2 (08:43→17:39)
[2017-02-08] MEDS: PANTOPRAZOLE 40 MG VIAL IV SCH ×2 (08:46→20:55)
[2017-02-08] MEDS: FLUTICASONE 50 MCG NASAL SPRAY 16 GM BOTTLE BOTH NARES SCH ×2 (08:50→20:56)
[2017-02-08] MEDS: ENOXAPARIN 30 MG/0.3 ML SYRINGE SUBCUT SCH (08:50)
[2017-02-08] MEDS: INSULIN GLARGINE 100 UNIT/ML SUBCUT SCH (08:52)
--- NOTE | 2017-02-08 10:16 | Event Note ---
She feels much better. She had an episode yesterday and nausea and vomiting but has had none since. She is hungry and is having flatus. She is afebrile. Her abdomen is benign on exam. We will let her try liquids today and see how it goes.
--- NOTE | 2017-02-08 12:29 | Hospitalist Progress Note ---
Assessment and Plan - Time spent with patient Time spent with patient: Greater than 30 minutes (1) Hypothyroidism Status: Acute Current Visit: Yes (2) Insulin dependent diabetes mellitus Status: Acute Current Visit: Yes (3) Small bowel obstruction Status: Acute Current Visit: Yes (4) Hypertension Status: Acute Assessment and plan: Resume all her oral Bp meds and monitor her Bp, adjust meds as needed No need for IV Labetalol PRN since oral meds are being resumed. Keep her insulin regimen until oral intake is reestablish then change to SC insulin. Following Current Visit: Yes Hospitalist: Subjective Interval history: Follow up for HTN management. She is no longer vomiting today. There is plan to resume oral feeds today. Bp is fair, she is to resume all her oral Bp meds today since oral feeds are to be resumed today. No other problems. FSG is at a good range for inpatient. Cr is improving Mild leucocytosis is likely reactive, we will monitor Exam - Constitutional Vitals: Period Temp Pulse Resp BP Sys/Evangelista Pulse Ox Last 24 Hr 97.5 F-98.0 F 74-93 18-22 119-192/67-88 97-100 Exam: General appearance: no acute distress - Head Head exam: Present: normal inspection - Eye Pupils: Present: EMRE, normal accommodation - ENT ENT exam: Present: normal exam - Respiratory Respiratory exam: Present: clear to auscultation bilaterally. Absent: accessory muscle use, chest wall tenderness - GI/Abdominal GI/Abdominal exam: Present: normal bowel sounds. Absent: ascites, distended - Extremities Exam Extremities exam: Present: normal inspection, full ROM - Neurological Exam Neurological exam: Present: alert, oriented X3 - Skin Skin exam: Present: normal color, warm, dry Results - Labs CBC & BMP: 02/08/17 05:44 02/08/17 05:44 Lab Results: I have reviewed the past 24 hour labs
[2017-02-08] MEDS: cloNIDine 0.3 MG/24 HR PATCH TRANSDERM SCH (12:31)
[2017-02-08] MEDS: TRACE ELEMENTS IV SCH (17:48)
[2017-02-08] MEDS: MULTIVITAMIN IV SCH (17:48)
[2017-02-08] MEDS: [UNRECOGNIZED DRUG - OTHER] IV SCH (17:48)
[2017-02-08] MEDS: INSULIN REGULAR IV SCH (17:48)
[2017-02-08] MEDS: FAT EMULSION 20% 250 ML IV SCH (18:22)
[2017-02-08] MEDS ORDERED: METHOCARBAMOL 750 MG TABLET PO PRN (19:12)
[2017-02-08] MEDS: GABAPENTIN 600 MG TABLET PO SCH (20:55)
[2017-02-09] MEDS: INSULIN LISPRO 100 UNIT/ML SUBCUT SCH ×4 (01:06→18:26)
[2017-02-09] MEDS: diphenhydrAMINE CAP 25 MG CAPSULE PO PRN (01:09)
[2017-02-09] MEDS: METOCLOPRAMIDE 10 MG/2 ML VIAL IV SCH ×4 (01:11→18:25)
[2017-02-09] MEDS: MORPHINE 2 MG/1 ML SYRINGE IV PRN ×4 (03:49→21:10)
[2017-02-09] MEDS: ONDANSETRON 4 MG/2 ML VIAL IV PRN ×2 (03:50→21:10)
[2017-02-09] MEDS: LEVOTHYROXINE 100 MCG VIAL IV SCH (06:48)
[2017-02-09] MEDS: PANTOPRAZOLE 40 MG VIAL IV SCH ×2 (08:24→21:07)
[2017-02-09] MEDS: CARVEDILOL 25 MG TABLET PO SCH ×2 (08:27→21:06)
[2017-02-09] MEDS: CAPTOPRIL 6.25 MG TABLET PO SCH ×2 (08:27→21:07)
[2017-02-09] MEDS: amLODIPine 10 MG TABLET PO SCH (08:27)
[2017-02-09] MEDS: FLUoxetine 10 MG CAPSULE PO SCH (08:28)
[2017-02-09] MEDS: FLUTICASONE 50 MCG NASAL SPRAY 16 GM BOTTLE BOTH NARES SCH ×2 (08:28→21:16)
[2017-02-09] MEDS: INSULIN GLARGINE 100 UNIT/ML SUBCUT SCH (08:29)
[2017-02-09] MEDS ORDERED: GABAPENTIN 300 MG CAPSULE PO SCH (09:00)
[2017-02-09] MEDS: ENOXAPARIN 30 MG/0.3 ML SYRINGE SUBCUT SCH (12:34)
--- NOTE | 2017-02-09 13:54 | Event Note ---
Feels much better. Not much out of NG tube and has no abdominal pain or nausea or vomiting. Passing some flatus. Vital signs are stable. We will get nasogastric tube out.
[2017-02-09] MEDS: FAT EMULSION 20% 250 ML IV SCH (14:26)
--- NOTE | 2017-02-09 15:58 | Hospitalist Progress Note ---
Assessment and Plan (1) Hypothyroidism Status: Acute Current Visit: Yes (2) Insulin dependent diabetes mellitus Status: Acute Assessment and plan: FSG ok Current Visit: Yes (3) Small bowel obstruction Status: Acute Current Visit: Yes (4) Hypertension Status: Acute Assessment and plan: Continue home meds Current Visit: Yes Hospitalist: Subjective Interval history: Patient doing well today. No acute events overnight. Following for medical management. BP much improved now. FSGs acceptable. Patient complaining of yeast infection, will start fluconazole. Exam - Constitutional Vitals: Period Temp Pulse Resp BP Sys/Evangelista Pulse Ox Last 24 Hr 97.2 F-98.6 F 64-80 18-20 127-177/61-88 97-99 General appearance: over weight - Head Head exam: Present: normocephalic, atraumatic - Eye Eye exam: Present: EOMI Pupils: Present: EMRE - ENT ENT exam: Present: normal exam - Neck Neck exam: Present: normal inspection. Absent: tenderness - Respiratory Respiratory exam: Present: clear to auscultation bilaterally - Cardiovascular Cardiovascular exam: Present: regular rate and rhythm - GI/Abdominal GI/Abdominal exam: Present: normal bowel sounds, soft - Extremities Exam Extremities exam: Present: normal inspection - Back Exam Back exam: Present: normal inspection - Neurological Exam Neurological exam: Present: alert - Psychiatric Psychiatric exam: Present: normal affect, normal mood - Skin Skin exam: Present: warm, intact Results - Labs CBC & BMP: 02/08/17 05:44 02/08/17 05:44
[2017-02-09] MEDS: FLUCONAZOLE 100 MG TABLET PO SCH (16:09)
[2017-02-09] MEDS: [UNRECOGNIZED DRUG - OTHER] IV SCH (20:21)
[2017-02-09] MEDS: TRACE ELEMENTS IV SCH (20:21)
[2017-02-09] MEDS: INSULIN REGULAR IV SCH (20:21)
[2017-02-09] MEDS: MULTIVITAMIN IV SCH (20:21)
[2017-02-09] MEDS: GABAPENTIN 600 MG TABLET PO SCH (21:06)
[2017-02-10] MEDS: METOCLOPRAMIDE 10 MG/2 ML VIAL IV SCH ×4 (00:39→18:10)
[2017-02-10] MEDS: diphenhydrAMINE CAP 25 MG CAPSULE PO PRN (00:39)
[2017-02-10] MEDS: INSULIN LISPRO 100 UNIT/ML SUBCUT SCH ×4 (01:17→18:05)
[2017-02-10] MEDS: MORPHINE 2 MG/1 ML SYRINGE IV PRN (04:04)
[2017-02-10 07:11] LABS: Calcium 8.8 MG/DL (8.5-10.1); Osmolality,Calculated 290.4 MOS/KG (273-304); Potassium 4.9 MMOL/L (3.5-5.1)
[2017-02-10 07:13] LABS: Prealbumin 28.8 MG/DL (20-40)
[2017-02-10] MEDS: LEVOTHYROXINE 100 MCG VIAL IV SCH (07:24)
--- NOTE | 2017-02-10 08:39 | Event Note ---
Afebrile vital signs stable. Only complaint is the feeling of nausea and subsequent vomiting after she receives morphine. She did well yesterday and had no nausea and vomiting. She's been tolerating clear liquids after her NG tube was removed. This morning she got up and went had a good bowel movement and had a little bit of serosanguineous drainage from the incision. When she got back in bed she has for some pain medicine. She says she needs pain medicine about twice a day. She says it seems like when she gets the morphine she immediately feels nauseated. She threw up once after receiving the morphine this morning. On exam her abdomen is soft and minimally distended and non-tender. Incision with slight serosanguineous drainage near the umbilicus. Nothing significant expressed. She has excellent bowel sounds. Plan: We'll stop the morphine. She has not received Toradol or nursing record so I'll give her 4 days of Toradol and see if that alleviates her pain. She is instructed to use nor to for any breakthrough. We'll give Dilaudid in case she needs something IV. Continue TPN until she is tolerating a regular diet. Encouraged to ambulate. Hold Lovenox.
[2017-02-10] MEDS: CARVEDILOL 25 MG TABLET PO SCH ×3 (10:39→22:15)
[2017-02-10] MEDS: FLUTICASONE 50 MCG NASAL SPRAY 16 GM BOTTLE BOTH NARES SCH ×2 (10:40→22:11)
[2017-02-10] MEDS: CAPTOPRIL 6.25 MG TABLET PO SCH ×3 (10:40→22:14)
[2017-02-10] MEDS: amLODIPine 10 MG TABLET PO SCH (10:41)
[2017-02-10] MEDS: PANTOPRAZOLE 40 MG VIAL IV SCH ×2 (10:41→22:05)
[2017-02-10] MEDS: GABAPENTIN 300 MG CAPSULE PO SCH ×2 (10:42→15:49)
[2017-02-10] MEDS: FLUCONAZOLE 100 MG TABLET PO SCH (10:42)
[2017-02-10] MEDS: INSULIN GLARGINE 100 UNIT/ML SUBCUT SCH (10:44)
[2017-02-10] MEDS: KETOROLAC 15 MG/1 ML VIAL IV SCH ×3 (10:47→21:04)
[2017-02-10] MEDS: FAT EMULSION 20% 250 ML IV SCH (13:36)
--- NOTE | 2017-02-10 16:14 | Hospitalist Progress Note ---
Assessment and Plan (1) Hypothyroidism Status: Acute Current Visit: Yes (2) Insulin dependent diabetes mellitus Status: Acute Assessment and plan: FSG ok Current Visit: Yes (3) Small bowel obstruction Status: Acute Current Visit: Yes (4) Hypertension Status: Acute Assessment and plan: Continue home meds Current Visit: Yes Hospitalist: Subjective Interval history: Patient reports having a rough night, due to nausea from morphine. Has already been addressed by primary. She reports feeling better today but weak. Reports diarrhea today. Could be from the fluconazole started yesterday. Don't see where she has been on antibiotics this admission. Will check C.diff just in case. No other changes today. FSG acceptable for inpatient. Blood pressure ok. Exam - Constitutional Vitals: Period Temp Pulse Resp BP Sys/Evangelista Pulse Ox Last 24 Hr 97.6 F-98.8 F 68-81 18-20 102-154/54-84 97-99 General appearance: over weight - Head Head exam: Present: normocephalic, atraumatic - Eye Eye exam: Present: EOMI Pupils: Present: EMRE - ENT ENT exam: Present: normal exam - Neck Neck exam: Present: normal inspection - Respiratory Respiratory exam: Present: clear to auscultation bilaterally - Cardiovascular Cardiovascular exam: Present: regular rate and rhythm - GI/Abdominal GI/Abdominal exam: Present: normal bowel sounds, soft. Absent: tenderness - Extremities Exam Extremities exam: Present: normal inspection - Back Exam Back exam: Present: normal inspection - Neurological Exam Neurological exam: Present: alert - Psychiatric Psychiatric exam: Present: normal affect, normal mood - Skin Skin exam: Present: warm, intact Results - Labs CBC & BMP: 02/08/17 05:44 02/10/17 06:02
[2017-02-10] MEDS: HYDROmorphone 2 MG/1 ML VIAL IV PRN (18:06)
[2017-02-10] MEDS: MULTIVITAMIN IV SCH (18:16)
[2017-02-10] MEDS: [UNRECOGNIZED DRUG - OTHER] IV SCH (18:16)
[2017-02-10] MEDS: INSULIN REGULAR IV SCH (18:16)
[2017-02-10] MEDS: TRACE ELEMENTS IV SCH (18:16)
[2017-02-10] MEDS: ONDANSETRON 4 MG/2 ML VIAL IV PRN (21:01)
[2017-02-10] MEDS: GABAPENTIN 600 MG TABLET PO SCH ×2 (22:10→22:14)
[2017-02-10] MEDS ORDERED: PROMETHAZINE 25 MG/1 ML VIAL IM ONE (22:48)
[2017-02-11] MEDS: METOCLOPRAMIDE 10 MG/2 ML VIAL IV SCH ×5 (00:33→23:56)
[2017-02-11] MEDS: INSULIN LISPRO 100 UNIT/ML SUBCUT SCH ×4 (00:44→17:40)
[2017-02-11] MEDS: LABETALOL 20 MG/4 ML SYRINGE IV PRN ×2 (00:46→04:35)
[2017-02-11] MEDS: KETOROLAC 15 MG/1 ML VIAL IV SCH ×3 (02:42→20:08)
[2017-02-11] MEDS: ONDANSETRON 4 MG/2 ML VIAL IV PRN (04:18)
[2017-02-11] MEDS: LEVOTHYROXINE 100 MCG VIAL IV SCH (06:59)
[2017-02-11 09:25] LABS: Basophils % 0.3 % (0.0-0.8); Eosinophils # 0.3 10*3/uL (0.0-0.87); Eosinophils % 2.3 % (0.00-10.9); Hematocrit 30.9 VOL% (35.7-47.0); Hemoglobin 9.6 GM/DL (12.0-16.0); Immature Granulocytes % 0.4 %; Immature Granulocytes Absolute 0.06 #; Lymphocytes # 3.9 10*3/uL (1.4-4.0); Lymphocytes % 26.4 % (21.3-54.2); Mean Corpuscular HGB Conc 31.1 GM/DL (32-36); Mean Corpuscular Hemoglobin 27 PG (27-34); Mean Corpuscular Volume 86.8 FL (87-102); Mean Platelet Volume 13.7 FL (9.6-12.0); Monocytes # 1.1 10*3/uL (0.11-0.8); Monocytes % 7.2 % (1.7-12.7); Neutrophils # 9.5 10*3/uL (1.4-7.4); Neutrophils % 63.4 % (38.7-73.9); Platelet Count 252 T/CUMM (130-400); Red Blood Count 3.56 MC/CUMM (3.8-5.5); Red Cell Distribution Width 14.2 % (9.3-17.3); White Blood Count 14.9 T/CUMM (4-12)
[2017-02-11 09:53] LABS: Calcium 9.2 MG/DL (8.5-10.1); Osmolality,Calculated 288.7 MOS/KG (273-304); Potassium 4.4 MMOL/L (3.5-5.1)
--- NOTE | 2017-02-11 11:41 | Hospitalist Progress Note ---
Assessment and Plan (1) Hypothyroidism Status: Chronic Current Visit: Yes (2) Insulin dependent diabetes mellitus Status: Acute Assessment and plan: FSG ok Current Visit: Yes (3) Small bowel obstruction Status: Acute Current Visit: Yes (4) Hypertension Status: Acute Assessment and plan: Continue home meds Current Visit: Yes (5) Leukocytosis Status: Acute Assessment and plan: blood cultures and UA Current Visit: Yes Hospitalist: Subjective Interval history: Patient reports being up all night vomiting. She reports that she is going to the OR today to have her wound packed. She has a mild leukocytosis. Possibly reactive but will check blood cultures and UA to be sure. No changes to her DM or HTN regimen. Exam - Constitutional Vitals: Period Temp Pulse Resp BP Sys/Evangelista Pulse Ox Last 24 Hr 97.2 F-99.4 F 68-82 18-20 102-159/54-72 96-99 General appearance: over weight - Head Head exam: Present: atraumatic - Eye Eye exam: Present: EOMI Pupils: Present: EMRE - ENT ENT exam: Present: normal exam - Neck Neck exam: Present: normal inspection. Absent: tenderness - Respiratory Respiratory exam: Present: clear to auscultation bilaterally. Absent: wheezes - Cardiovascular Cardiovascular exam: Present: regular rate and rhythm - GI/Abdominal GI/Abdominal exam: Present: normal bowel sounds, tenderness, soft - Extremities Exam Extremities exam: Present: normal inspection - Back Exam Back exam: Present: normal inspection - Neurological Exam Neurological exam: Present: alert, oriented X3 - Psychiatric Psychiatric exam: Present: normal affect, normal mood - Skin Skin exam: Present: warm, intact Results - Labs CBC & BMP: 02/11/17 09:08 02/11/17 09:08
--- NOTE | 2017-02-11 11:57 | Event Note ---
Patient had nausea and vomiting yesterday even though she had no morphine ordered. She's also had diarrhea. She is not currently nauseated. She is also having persistent drainage from her incision near the umbilicus. They've changed her dressing several times. On exam her abdomen is soft and nontender. She's somewhat distended. There is drainage near the umbilicus has a slow pulled of dark colored blood. I opened the abdelrahman in this region and encountered a fairly extensive hematoma. Has developed in her extensive subcutaneous tissue and I'm unable to appreciate the fascia. Labs Noted. There does not appear to be any purulence or infection associated with the incision. Bowel sounds are present. She appears to have an ileus. We'll keep her nothing by mouth for now. Plan to replace NG tube if she has any further nausea or vomiting. Also discussed evacuation of the hematoma in the operating room and she would like to proceed. We'll evaluate the fascia at that time. Discussed the risks with the patient and she would like to proceed.
[2017-02-11] MEDS ORDERED: SUCCINYLCHOLINE 200 MG/10 ML VIAL ONE (12:00)
[2017-02-11] MEDS ORDERED: PROPOFOL 200 MG/20 ML VIAL IV ONE (12:00)
[2017-02-11] MEDS ORDERED: NEOSTIGMINE 10 MG/10 ML VIAL ONE (12:00)
[2017-02-11] MEDS ORDERED: PHENYLEPHRINE 1 MG/10 ML SYRINGE IV ONE (12:00)
[2017-02-11] MEDS ORDERED: CALCIUM CHLORIDE 1,000 MG/10 ML SYRINGE IV ONE (12:00)
[2017-02-11] MEDS ORDERED: LIDOCAINE 1% 5 ML VIAL ONE (12:00)
[2017-02-11] MEDS ORDERED: ONDANSETRON 4 MG/2 ML VIAL ONE (12:00)
[2017-02-11] MEDS ORDERED: GLYCOPYRROLATE 0.4 MG/2 ML VIAL ONE (12:00)
[2017-02-11] MEDS ORDERED: ROCURONIUM 100 MG/10 ML VIAL IV ONE (12:00)
[2017-02-11] MEDS ORDERED: ePHEDrine 50 MG/ML AMP ONE (13:11)
[2017-02-11] MEDS ORDERED: LACTATED RINGERS 1,000 ML IV ONE (14:33)
[2017-02-11] MEDS ORDERED: SEVOFLURANE 1 UNIT/15 MINUTE INH ONE (14:33)
[2017-02-11] MEDS ORDERED: MIDAZOLAM 2 MG/2 ML VIAL ONE (14:33)
[2017-02-11] MEDS ORDERED: fentaNYL 100 MCG/2 ML VIAL ONE (14:33)
[2017-02-11] MEDS ORDERED: ONDANSETRON 4 MG/2 ML VIAL IV PRN (14:34)
[2017-02-11] MEDS: HYDROmorphone 2 MG/1 ML VIAL IV PRN ×6 (14:35→23:53)
[2017-02-11] MEDS: ENOXAPARIN 30 MG/0.3 ML SYRINGE SUBCUT SCH (15:18)
[2017-02-11] MEDS: FLUTICASONE 50 MCG NASAL SPRAY 16 GM BOTTLE BOTH NARES SCH ×2 (15:19→20:16)
[2017-02-11] MEDS: CARVEDILOL 25 MG TABLET PO SCH ×2 (15:19→20:16)
[2017-02-11] MEDS: CAPTOPRIL 6.25 MG TABLET PO SCH ×2 (15:19→20:16)
[2017-02-11] MEDS: FLUCONAZOLE 100 MG TABLET PO SCH (15:19)
[2017-02-11] MEDS: GABAPENTIN 300 MG CAPSULE PO SCH ×2 (15:21→15:43)
[2017-02-11] MEDS: PANTOPRAZOLE 40 MG VIAL IV SCH ×2 (15:21→20:12)
[2017-02-11] MEDS: amLODIPine 10 MG TABLET PO SCH (15:21)
[2017-02-11] MEDS: INSULIN GLARGINE 100 UNIT/ML SUBCUT SCH (15:42)
--- NOTE | 2017-02-11 15:57 | Operative Note ---
Date of procedure: 02/11/17 Pre-op diagnosis: hematoma within the wound Post-op diagnosis: other (hematoma within the wound, fascial dehiscence) Procedure: Procedure performed: Reopening of recent laparotomy #2 repair of fascial dehiscence #3 evacuation of hematoma #4 lysis of adhesions Procedure in detail: After informed consent was obtained, the patient was taken operating suite and laid supine on the operating table. After general anesthesia was induced the abdomen was prepped and draped in usual sterile fashion. After procedural pause the previous abdelrahman were removed and the abdominal wound was opened. Approximately 100 mL of old clot was removed. There was a small area using on the fascia that was controlled with electrocautery. The fascial stitches had completely disrupted but there was no evisceration. I bluntly dissected the omentum away from the fascial edges gaining entrance into the abdominal cavity. The omentum was bluntly dissected off of the pelvic wall and retracted. I then inspected the bowel and there were multiple interloop adhesions which were dissected by blunt finger dissection. Once all the adhesions were removed I ran the bowel from the ligament of Treitz to the ileocecal valve. Also ran the colon again. There was no injury. The colon and small bowel all appeared dilated consistent with ileus. The bowel was placed back into the abdomen. It all appeared healthy and viable. The abdominal cavity was then thoroughly irrigated and suctioned. There was good hemostasis. There was no hematoma or clot in the abdominal cavity. I dissected the overlying subcutaneous tissue off of the fascial edges. #2 nylon retention sutures were then placed. The midline fascia was reclosed with #1 running Prolene suture. The wound was then thoroughly irrigated and suction using the Pulsavac. The retention sutures were secured using red rubber catheter tubing. The incision was closed with abdelrahman. Sterile dressings applied. The patient was extubated and taken recovery room in stable condition. All lap and needle counts correct at the end of the case. Anesthesia: GETA Surgeon / Physician: Aftab Manriquez Estimated blood loss: other (less than 25 mL, approximately 100 mL of old clot evacuated from the wound) Specimens: none sent Condition: stable Disposition: PACU Results - Labs CBC & BMP: 02/11/17 09:08 02/11/17 09:08 Discharge Plan - Discharge Medications No Action Cholecalciferol (Vitamin D3) [Vitamin D3 Chew Tab] 1,000 unit PO DAILY traMADol TAB [Ultram] 50 mg PO Q4-6H PRN PRN Reason: Pain Mild To Moderate (1-7) Levothyroxine Tab [Synthroid Tab] 50 mcg PO DAILY@0700 Fenofibrate,Micronized [Antara] 90 mg PO DAILY Furosemide Tab [Lasix Tab] 20 mg PO DAILY Clonidine HCl [Clonidine HCl ER] 0.1 mg PO BID Gabapentin 300 mg PO BID Amoxicillin/Potassium Clav [Amox Tr-K Clv 875-125 mg Tab] 1 each PO BID Metformin HCl 1,000 mg PO BID Insulin Regular [HumuLIN R] 65 unit SUBCUT AC LUNCH Insulin Regular [HumuLIN R] 85 unit SUBCUT DAILY W/BREAKFAST Methocarbamol [Methocarbamol] 750 mg PO QID Gabapentin 1 tablet PO BEDTIME Multivitamin [One Daily] 1 each PO DAILY Verapamil HCl [Verapamil ER Tab] 240 mg PO DAILY Pantoprazole Sodium [Protonix] 40 mg PO DAILY Insulin Regular [HumuLIN R] 65 unit SUBCUT AC SUPPER - Follow Up or Referral - Forms/Instructions
[2017-02-11] MEDS: [UNRECOGNIZED DRUG - OTHER] IV SCH (16:24)
[2017-02-11] MEDS: MULTIVITAMIN IV SCH (16:24)
[2017-02-11] MEDS: INSULIN REGULAR IV SCH (16:24)
[2017-02-11] MEDS: TRACE ELEMENTS IV SCH (16:24)
[2017-02-11] MEDS: FAT EMULSION 20% 250 ML IV SCH (16:25)
[2017-02-11] MEDS: GABAPENTIN 600 MG TABLET PO SCH (20:16)
[2017-02-11 20:39] LABS: Apearance,Urine CLOUDY (Clear); Bacteria,Urine Many /HPF (Few); Bilirubin,Urine Negative (Negative); Blood, Urine Moderate mg/dL (Negative); Glucose,Urine (UA) Negative (Negative); Hyaline Casts,Urine 1 /LPF (0-3); Ketones,Urine Negative (Negative); Mucus,Urine Occasional /LPF (Occasional); Nitrite,Urine Negative (Negative); Protein,Urine 100 MG/DL; RBC,Urine <1 /HPF (0-4); Squamous Epithelial Cell,Urine Few /HPF (0-10); Urine Color Yellow (Yellow); Urine Specific Gravity 1.012 (1.001-1.035); Urine Urobilinogen < 2.0 EU/DL (0.2-1.0); WBC,Urine 3 /HPF (0-6)
[2017-02-12] MEDS: INSULIN LISPRO 100 UNIT/ML SUBCUT SCH ×4 (00:03→18:56)
[2017-02-12] MEDS: KETOROLAC 15 MG/1 ML VIAL IV SCH ×4 (02:12→20:59)
[2017-02-12 06:07] LABS: Basophils % 0.3 % (0.0-0.8); Eosinophils # 0.6 10*3/uL (0.0-0.87); Eosinophils % 4.8 % (0.00-10.9); Hematocrit 28.6 VOL% (35.7-47.0); Hemoglobin 8.6 GM/DL (12.0-16.0); Immature Granulocytes % 0.3 %; Immature Granulocytes Absolute 0.04 #; Lymphocytes # 3.6 10*3/uL (1.4-4.0); Lymphocytes % 27.2 % (21.3-54.2); Mean Corpuscular HGB Conc 30.1 GM/DL (32-36); Mean Corpuscular Hemoglobin 27 PG (27-34); Mean Corpuscular Volume 89.9 FL (87-102); Mean Platelet Volume 14.2 FL (9.6-12.0); Monocytes # 1.2 10*3/uL (0.11-0.8); Neutrophils # 7.7 10*3/uL (1.4-7.4); Neutrophils % 58.4 % (38.7-73.9); Platelet Count 222 T/CUMM (130-400); Red Blood Count 3.18 MC/CUMM (3.8-5.5); Red Cell Distribution Width 14.5 % (9.3-17.3); White Blood Count 13.3 T/CUMM (4-12)
[2017-02-12] MEDS: METOCLOPRAMIDE 10 MG/2 ML VIAL IV SCH ×3 (06:17→18:50)
[2017-02-12] MEDS: LEVOTHYROXINE 100 MCG VIAL IV SCH (06:20)
[2017-02-12] MEDS: CARVEDILOL 25 MG TABLET PO SCH ×2 (08:22→21:12)
[2017-02-12] MEDS: CAPTOPRIL 6.25 MG TABLET PO SCH ×2 (08:22→21:12)
[2017-02-12] MEDS: INSULIN GLARGINE 100 UNIT/ML SUBCUT SCH (08:23)
[2017-02-12] MEDS: FLUCONAZOLE 100 MG TABLET PO SCH (08:23)
[2017-02-12] MEDS: GABAPENTIN 300 MG CAPSULE PO SCH ×2 (08:23→15:01)
[2017-02-12] MEDS ORDERED: HEPARIN LOCK FLUSH 500 UNIT/5 ML SYRINGE IV ONE (08:27)
[2017-02-12] MEDS: PANTOPRAZOLE 40 MG VIAL IV SCH ×2 (08:33→20:58)
[2017-02-12] MEDS: amLODIPine 10 MG TABLET PO SCH (08:36)
[2017-02-12] MEDS: FLUTICASONE 50 MCG NASAL SPRAY 16 GM BOTTLE BOTH NARES SCH ×2 (08:36→21:12)
--- NOTE | 2017-02-12 08:37 | Event Note ---
Status post exploratory laparoscopy with lysis of adhesions. She was taken back to the operating room yesterday and found to have fascial dehiscence. This was repaired using retention sutures. Afebrile vital signs stable. She's feeling better. NG tube output about 600 mL since placed in the OR yesterday. Abdomen is soft and appropriately tender with mild distention. No further diarrhea. Hypoactive bowel sounds. Incision looks good. Plan: Continue NG tube for decompression till ileus resolves. White blood cell count is improved. We'll recheck tomorrow. She is not on antibiotics and there has been no obvious source of infection.
[2017-02-12] MEDS: HYDROmorphone 2 MG/1 ML VIAL IV PRN ×2 (10:49→18:47)
[2017-02-12] MEDS: FAT EMULSION 20% 250 ML IV SCH (14:15)
--- NOTE | 2017-02-12 16:16 | Hospitalist Progress Note ---
Assessment and Plan (1) Hypothyroidism Status: Chronic Current Visit: Yes (2) Insulin dependent diabetes mellitus Status: Acute Assessment and plan: FSG ok Current Visit: Yes (3) Small bowel obstruction Status: Acute Current Visit: Yes (4) Hypertension Status: Acute Assessment and plan: Continue home meds Current Visit: Yes (5) Leukocytosis Status: Acute Assessment and plan: blood cultures and UA Improving Current Visit: Yes Hospitalist: Subjective Interval history: Patient reports that she feels better today. Now has NGT in place draining a yellow liquid. Low FSG today, her TPN has been adjusted. Will continue Lantus 10 for now. Leukocytosis is slightly down. No signs of infection. Most likely reactive. Exam - Constitutional Vitals: Period Temp Pulse Resp BP Sys/Evangelista Pulse Ox Last 24 Hr 97 F-98.7 F 76-91 18-20 130-151/63-72 95-100 General appearance: over weight - Head Head exam: Present: normocephalic, atraumatic - Eye Eye exam: Present: EOMI Pupils: Present: EMRE - ENT ENT exam: Present: normal exam - Neck Neck exam: Present: normal inspection. Absent: tenderness - Respiratory Respiratory exam: Present: clear to auscultation bilaterally - Cardiovascular Cardiovascular exam: Present: regular rate and rhythm - GI/Abdominal GI/Abdominal exam: Present: normal bowel sounds, distended, tenderness - Extremities Exam Extremities exam: Present: normal inspection - Back Exam Back exam: Present: normal inspection - Neurological Exam Neurological exam: Present: alert, oriented X3 - Psychiatric Psychiatric exam: Present: normal affect, normal mood - Skin Skin exam: Present: warm, intact Results - Labs CBC & BMP: 02/12/17 05:33 02/11/17 09:08
[2017-02-12] MEDS: MULTIVITAMIN IV SCH (17:25)
[2017-02-12] MEDS: TRACE ELEMENTS IV SCH (17:25)
[2017-02-12] MEDS: [UNRECOGNIZED DRUG - OTHER] IV SCH (17:25)
[2017-02-12] MEDS: INSULIN REGULAR IV SCH (17:25)
[2017-02-12] MEDS: GABAPENTIN 600 MG TABLET PO SCH (21:12)
[2017-02-13] MEDS: METOCLOPRAMIDE 10 MG/2 ML VIAL IV SCH ×5 (00:35→19:38)
[2017-02-13] MEDS: INSULIN LISPRO 100 UNIT/ML SUBCUT SCH ×4 (00:50→19:00)
[2017-02-13] MEDS: KETOROLAC 15 MG/1 ML VIAL IV SCH ×2 (01:17→12:12)
[2017-02-13] MEDS: HYDROmorphone 2 MG/1 ML VIAL IV PRN (03:18)
[2017-02-13] MEDS ORDERED: NALOXONE 0.4 MG/ML VIAL IV PRN (04:52)
--- NOTE | 2017-02-13 04:55 | Event Note ---
General Surgery Progress Note Chief complaint This patient is a 61-year-old woman admitted with a bowel obstruction and was treated by Dr. Vidal with laparotomy and lysis of adhesions on 01/31/2017 complicated by fascial dehiscence requiring return to the operating room with repair of fascial dehiscence using retention sutures on 02/11/2017 Interval history The patient is doing well today. Her pain is well controlled. She still has bilious output from her NG tube. She is trying to walk in the room but is difficult because of all the tubes and IVs she has. She is not passing gas or having bowel movements yet. Her as needed Dilaudid is not controlling her pain adequately. Physical exam Afebrile, normal vital signs Chest is clear Heart is regular with no murmurs Abdomen is soft with hypoactive bowel sounds. It is distended. The incision is clean and dry with retention sutures in place. The midline incision was closed with clean staple line. Labs Pending Imaging None new Assessment and plan Continue TPN and NG tube to wall suction intermittently on low wall suction Increase activity and ambulate in the hallway Continue incentive spirometry Await return of bowel function Dilaudid LETTERSET PRESS SET UP OPERATOR for pain control
[2017-02-13] MEDS: HYDROmorphone PCA 30 MG/30 ML SYRINGE IV SCH (05:49)
[2017-02-13] MEDS: LEVOTHYROXINE 100 MCG VIAL IV SCH ×2 (06:31→09:30)
[2017-02-13 06:49] LABS: Basophils % 0.3 % (0.0-0.8); Eosinophils # 0.9 10*3/uL (0.0-0.87); Hematocrit 25.1 VOL% (35.7-47.0); Hemoglobin 7.8 GM/DL (12.0-16.0); Immature Granulocytes % 0.4 %; Immature Granulocytes Absolute 0.05 #; Lymphocytes # 3.3 10*3/uL (1.4-4.0); Lymphocytes % 25.8 % (21.3-54.2); Mean Corpuscular HGB Conc 31.1 GM/DL (32-36); Mean Corpuscular Hemoglobin 27 PG (27-34); Mean Corpuscular Volume 86.9 FL (87-102); Monocytes # 1.2 10*3/uL (0.11-0.8); Monocytes % 9.3 % (1.7-12.7); Neutrophils # 7.3 10*3/uL (1.4-7.4); Neutrophils % 57.2 % (38.7-73.9); Platelet Count 216 T/CUMM (130-400); Red Blood Count 2.89 MC/CUMM (3.8-5.5); Red Cell Distribution Width 14.5 % (9.3-17.3); White Blood Count 12.8 T/CUMM (4-12)
[2017-02-13 07:21] LABS: Calcium 8.3 MG/DL (8.5-10.1); Magnesium 2.4 MG/DL (1.8-2.4); Phosphorous 5.4 MG/DL (2.5-4.9); Potassium 4.6 MMOL/L (3.5-5.1)
[2017-02-13] MEDS: CAPTOPRIL 6.25 MG TABLET PO SCH ×2 (08:45→21:24)
[2017-02-13] MEDS: GABAPENTIN 300 MG CAPSULE PO SCH ×2 (08:46→15:33)
[2017-02-13] MEDS: FLUCONAZOLE 100 MG TABLET PO SCH (08:46)
[2017-02-13] MEDS: amLODIPine 10 MG TABLET PO SCH (08:46)
[2017-02-13] MEDS: CARVEDILOL 25 MG TABLET PO SCH ×2 (08:46→21:24)
[2017-02-13] MEDS: PANTOPRAZOLE 40 MG VIAL IV SCH ×2 (09:30→21:24)
[2017-02-13] MEDS: INSULIN GLARGINE 100 UNIT/ML SUBCUT SCH (09:33)
[2017-02-13] MEDS: FLUTICASONE 50 MCG NASAL SPRAY 16 GM BOTTLE BOTH NARES SCH ×2 (09:35→21:25)
--- NOTE | 2017-02-13 16:36 | Hospitalist Progress Note ---
Assessment and Plan (1) Hypothyroidism Status: Chronic Current Visit: Yes (2) Insulin dependent diabetes mellitus Status: Acute Assessment and plan: FSG ok Current Visit: Yes (3) Small bowel obstruction Status: Acute Current Visit: Yes (4) Hypertension Status: Acute Assessment and plan: Continue home meds Current Visit: Yes (5) Leukocytosis Status: Acute Assessment and plan: Improving Current Visit: Yes Hospitalist: Subjective Interval history: Patient is feeling weak today. 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 Slight drop in H/H this am. Agree with monitoring. Exam - Constitutional Vitals: Period Temp Pulse Resp BP Sys/Evangelista Pulse Ox Last 24 Hr 97.6 F-99.0 F 86-95 18-22 144-155/67-70 95-99 General appearance: over weight - Head Head exam: Present: normal inspection, normocephalic, atraumatic - Eye Eye exam: Present: EOMI Pupils: Present: EMRE - ENT ENT exam: Present: normal exam - Neck Neck exam: Present: normal inspection - Respiratory Respiratory exam: Present: clear to auscultation bilaterally - Cardiovascular Cardiovascular exam: Present: regular rate and rhythm - GI/Abdominal GI/Abdominal exam: Present: distended, hypoactive bowel sounds - Extremities Exam Extremities exam: Present: normal inspection - Back Exam Back exam: Present: normal inspection - Neurological Exam Neurological exam: Present: alert, oriented X3 - Psychiatric Psychiatric exam: Present: normal affect, normal mood - Skin Skin exam: Present: warm, intact Results - Labs CBC & BMP: 02/13/17 05:11 02/13/17 05:11
[2017-02-13] MEDS: MULTIVITAMIN IV SCH (18:17)
[2017-02-13] MEDS: [UNRECOGNIZED DRUG - OTHER] IV SCH (18:17)
[2017-02-13] MEDS: TRACE ELEMENTS IV SCH (18:17)
[2017-02-13] MEDS: INSULIN REGULAR IV SCH (18:17)
[2017-02-13] MEDS: FAT EMULSION 20% 250 ML IV SCH (18:18)
[2017-02-13] MEDS: GABAPENTIN 600 MG TABLET PO SCH (21:24)
[2017-02-14] MEDS: INSULIN LISPRO 100 UNIT/ML SUBCUT SCH ×4 (01:30→19:48)
[2017-02-14] MEDS: METOCLOPRAMIDE 10 MG/2 ML VIAL IV SCH ×4 (02:46→18:31)
[2017-02-14] MEDS: LEVOTHYROXINE 100 MCG VIAL IV SCH ×2 (05:40→06:14)
[2017-02-14] MEDS: HYDROmorphone PCA 30 MG/30 ML SYRINGE IV SCH (06:16)
[2017-02-14] MEDS: LABETALOL 20 MG/4 ML SYRINGE IV PRN ×2 (10:43→21:00)
[2017-02-14] MEDS: PANTOPRAZOLE 40 MG VIAL IV SCH ×2 (10:47→20:56)
[2017-02-14] MEDS: FLUTICASONE 50 MCG NASAL SPRAY 16 GM BOTTLE BOTH NARES SCH (11:46)
[2017-02-14] MEDS: FLUCONAZOLE 100 MG TABLET PO SCH (11:46)
[2017-02-14] MEDS: CAPTOPRIL 6.25 MG TABLET PO SCH ×2 (11:46→20:35)
[2017-02-14] MEDS: CARVEDILOL 25 MG TABLET PO SCH ×2 (11:46→20:35)
[2017-02-14] MEDS: INSULIN GLARGINE 100 UNIT/ML SUBCUT SCH (11:47)
[2017-02-14] MEDS: amLODIPine 10 MG TABLET PO SCH (11:48)
[2017-02-14] MEDS: GABAPENTIN 300 MG CAPSULE PO SCH ×2 (11:48→15:19)
--- NOTE | 2017-02-14 12:01 | Event Note ---
General Surgery Progress Note Chief complaint This patient is a 61-year-old woman admitted with a bowel obstruction and was treated by Dr. Vidal with laparotomy and lysis of adhesions on 01/31/2017 complicated by fascial dehiscence requiring return to the operating room with repair of fascial dehiscence using retention sutures on 02/11/2017 Interval history The patient passed a little bit of gas yesterday. She has not had a bowel movement yet. She had over a liter of output from her NG tube it is less bilious and she is drinking some sips of water. She walked in the room yesterday but did not walk in the hallway yet. Physical exam Afebrile, normal vital signs Chest is clear Heart is regular with no murmurs Abdomen is soft with hypoactive bowel sounds. It is distended. The incision is clean and dry with retention sutures in place. The midline incision was closed with clean staple line. 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
[2017-02-14 13:32] LABS: Calcium 8.9 MG/DL (8.5-10.1); Osmolality,Calculated 303.4 MOS/KG (273-304); Potassium 4.6 MMOL/L (3.5-5.1)
[2017-02-14] MEDS: FAT EMULSION 20% 250 ML IV SCH (14:17)
[2017-02-14] MEDS: hydrALAZINE 20 MG/1 ML VIAL IV PRN (16:23)
[2017-02-14] MEDS: MULTIVITAMIN IV SCH (16:31)
[2017-02-14] MEDS: TRACE ELEMENTS IV SCH (16:31)
[2017-02-14] MEDS: INSULIN REGULAR IV SCH (16:31)
[2017-02-14] MEDS: [UNRECOGNIZED DRUG - OTHER] IV SCH (16:31)
--- NOTE | 2017-02-14 17:13 | Hospitalist Progress Note ---
Assessment and Plan (1) Hypothyroidism Status: Chronic Current Visit: Yes (2) Insulin dependent diabetes mellitus Status: Acute Assessment and plan: FSG ok Current Visit: Yes (3) Small bowel obstruction Status: Acute Current Visit: Yes (4) Hypertension Status: Acute Assessment and plan: Continue home meds Current Visit: Yes (5) Leukocytosis Status: Acute Assessment and plan: Improving Current Visit: Yes Hospitalist: Subjective Interval history: No acute events overnight. Still with NGT. No longer able to take her oral medications. Has Labetalol IV prn, adding hydralazine iv prn. If needed will schedule labetalol. Exam - Constitutional Vitals: Period Temp Pulse Resp BP Sys/Evangelista Pulse Ox Last 24 Hr 97.9 F-99.0 F 84-101 12-20 146-200/54-84 97-99 General appearance: over weight - Head Head exam: Present: atraumatic - Eye Eye exam: Present: EOMI Pupils: Present: EMRE - ENT ENT exam: Present: normal exam - Neck Neck exam: Present: normal inspection - Respiratory Respiratory exam: Present: clear to auscultation bilaterally. Absent: rales, wheezes - Cardiovascular Cardiovascular exam: Present: regular rate and rhythm - GI/Abdominal GI/Abdominal exam: Present: distended (irmproving), hypoactive bowel sounds. Absent: tenderness - Extremities Exam Extremities exam: Present: normal inspection - Back Exam Back exam: Present: normal inspection - Neurological Exam Neurological exam: Present: alert, oriented X3 - Psychiatric Psychiatric exam: Present: normal affect, normal mood - Skin Skin exam: Present: warm, intact Results - Labs CBC & BMP: 02/13/17 05:11 02/14/17 12:41
[2017-02-14] MEDS: GABAPENTIN 600 MG TABLET PO SCH (20:35)
[2017-02-15] MEDS: FLUTICASONE 50 MCG NASAL SPRAY 16 GM BOTTLE BOTH NARES SCH ×3 (00:01→20:26)
[2017-02-15] MEDS: hydrALAZINE 20 MG/1 ML VIAL IV PRN (00:10)
[2017-02-15] MEDS: INSULIN LISPRO 100 UNIT/ML SUBCUT SCH ×4 (00:10→18:29)
[2017-02-15 03:47] LABS: Basophils # 0.1 10*3/uL (0.0-0.2); Basophils % 0.3 % (0.0-0.8); Eosinophils # 1.1 10*3/uL (0.0-0.87); Eosinophils % 7.6 % (0.00-10.9); Hematocrit 26.2 VOL% (35.7-47.0); Hemoglobin 7.9 GM/DL (12.0-16.0); Immature Granulocytes % 0.5 %; Immature Granulocytes Absolute 0.07 #; Lymphocytes # 3.7 10*3/uL (1.4-4.0); Lymphocytes % 25.6 % (21.3-54.2); Mean Corpuscular HGB Conc 30.2 GM/DL (32-36); Mean Corpuscular Hemoglobin 27 PG (27-34); Mean Corpuscular Volume 89.1 FL (87-102); Mean Platelet Volume 14.3 FL (9.6-12.0); Monocytes # 1.3 10*3/uL (0.11-0.8); Monocytes % 9.3 % (1.7-12.7); Neutrophils # 8.2 10*3/uL (1.4-7.4); Neutrophils % 56.7 % (38.7-73.9); Platelet Count 278 T/CUMM (130-400); Red Blood Count 2.94 MC/CUMM (3.8-5.5); Red Cell Distribution Width 14.4 % (9.3-17.3); White Blood Count 14.5 T/CUMM (4-12)
[2017-02-15] MEDS: LABETALOL 20 MG/4 ML SYRINGE IV PRN ×2 (04:28→09:10)
[2017-02-15] MEDS: METOCLOPRAMIDE 10 MG/2 ML VIAL IV SCH ×4 (06:46→18:30)
[2017-02-15] MEDS: LEVOTHYROXINE 100 MCG VIAL IV SCH (06:48)
[2017-02-15] MEDS: HYDROmorphone PCA 30 MG/30 ML SYRINGE IV SCH (06:56)
[2017-02-15] MEDS: cloNIDine 0.3 MG/24 HR PATCH TRANSDERM SCH (09:05)
[2017-02-15] MEDS: PANTOPRAZOLE 40 MG VIAL IV SCH ×2 (09:09→20:24)
[2017-02-15] MEDS: INSULIN GLARGINE 100 UNIT/ML SUBCUT SCH (09:09)
[2017-02-15 10:52] LABS: Basophils % 0.3 % (0.0-0.8); Eosinophils # 0.7 10*3/uL (0.0-0.87); Hematocrit 26.7 VOL% (35.7-47.0); Hemoglobin 8.1 GM/DL (12.0-16.0); Immature Granulocytes % 0.4 %; Immature Granulocytes Absolute 0.06 #; Lymphocytes # 2.3 10*3/uL (1.4-4.0); Lymphocytes % 16.6 % (21.3-54.2); Mean Corpuscular HGB Conc 30.3 GM/DL (32-36); Mean Corpuscular Hemoglobin 27 PG (27-34); Mean Corpuscular Volume 89.9 FL (87-102); Mean Platelet Volume 13.6 FL (9.6-12.0); Monocytes # 1.4 10*3/uL (0.11-0.8); Monocytes % 10.4 % (1.7-12.7); Neutrophils # 9.2 10*3/uL (1.4-7.4); Neutrophils % 67.3 % (38.7-73.9); Platelet Count 306 T/CUMM (130-400); Red Blood Count 2.97 MC/CUMM (3.8-5.5); Red Cell Distribution Width 14.4 % (9.3-17.3); White Blood Count 13.7 T/CUMM (4-12)
[2017-02-15] MEDS: CARVEDILOL 25 MG TABLET PO SCH ×2 (11:06→20:09)
[2017-02-15] MEDS: GABAPENTIN 300 MG CAPSULE PO SCH ×2 (11:06→15:47)
[2017-02-15] MEDS: amLODIPine 10 MG TABLET PO SCH (11:06)
[2017-02-15] MEDS: FLUCONAZOLE 100 MG TABLET PO SCH (11:06)
[2017-02-15] MEDS: CAPTOPRIL 6.25 MG TABLET PO SCH ×2 (11:06→20:09)
[2017-02-15 11:28] LABS: Calcium 9.3 MG/DL (8.5-10.1); Osmolality,Calculated 299.6 MOS/KG (273-304); Potassium 4.6 MMOL/L (3.5-5.1)
[2017-02-15 11:43] LABS: Apearance,Urine Slightly Hazy (Clear); Bacteria,Urine Occasional /HPF (Few); Bilirubin,Urine Negative (Negative); Blood, Urine Negative (Negative); Glucose,Urine (UA) Negative (Negative); Ketones,Urine Negative (Negative); Mucus,Urine Occasional /LPF (Occasional); Nitrite,Urine Negative (Negative); Protein,Urine 100 MG/DL; Squamous Epithelial Cell,Urine Occasional /HPF (0-10); Urine Color Yellow (Yellow); Urine Specific Gravity 1.012 (1.001-1.035); WBC,Urine 1 /HPF (0-6)
--- NOTE | 2017-02-15 11:48 | Event Note ---
General Surgery Progress Note Chief complaint This patient is a 61-year-old woman admitted with a bowel obstruction and was treated by Dr. Vidal with laparotomy and lysis of adhesions on 01/31/2017 complicated by fascial dehiscence requiring return to the operating room with repair of fascial dehiscence using retention sutures on 02/11/2017 Interval history Patient is still not passing gas or having bowel movements. She feels a little worse today and is having low-grade fevers. Her white blood cell count is still elevated at 13,000. NG tube output is slowly decreasing but it is more bilious again today. Physical exam Afebrile, normal vital signs Chest is clear Heart is regular with no murmurs Abdomen is soft with hypoactive bowel sounds. It is distended. The incision is clean and dry with retention sutures in place. The midline incision was closed with clean staple line. Labs Reviewed Imaging None new Assessment and plan Continue TPN and NG tube to wall suction intermittently on low wall suction Increase activity and ambulate in the hallway Continue incentive spirometry We will get a chest x-ray and urinalysis as well as a CT of the abdomen and pelvis with p.o. contrast only due to her elevated creatinine.
--- NOTE | 2017-02-15 12:46 | Hospitalist Progress Note ---
Assessment and Plan (1) Hypothyroidism Status: Chronic Current Visit: Yes (2) Insulin dependent diabetes mellitus Status: Acute Assessment and plan: FSG increasing Increase NPH Current Visit: Yes (3) Small bowel obstruction Status: Acute Current Visit: Yes (4) Hypertension Status: Acute Assessment and plan: No medications by mouth hydralazine prn labetalol scheduled clonopin patch Current Visit: Yes (5) Leukocytosis Status: Acute Assessment and plan: Improving Current Visit: Yes Hospitalist: Subjective Interval history: Patient says that she feels a little better today. Blood pressure is elevated. Can't take anything by mouth. Will schedule labetalol for now. Patient did not have on a clonopin patch. Has one on starting today. FSG also increasing. Increase NPH. Exam - Constitutional Vitals: Period Temp Pulse Resp BP Sys/Evangelista Pulse Ox Last 24 Hr 98.7 F-100.8 F 95-114 18-20 170-201/76-85 94-98 General appearance: over weight - Head Head exam: Present: normocephalic, atraumatic - Eye Eye exam: Present: EOMI Pupils: Present: EMRE - ENT ENT exam: Present: normal exam - Neck Neck exam: Present: normal inspection - Respiratory Respiratory exam: Present: clear to auscultation bilaterally. Absent: rhonchi, wheezes - Cardiovascular Cardiovascular exam: Present: regular rate and rhythm - GI/Abdominal GI/Abdominal exam: Present: hypoactive bowel sounds, tenderness - Extremities Exam Extremities exam: Present: normal inspection - Back Exam Back exam: Present: normal inspection - Neurological Exam Neurological exam: Present: alert, oriented X3 - Psychiatric Psychiatric exam: Present: normal affect, normal mood - Skin Skin exam: Present: warm, intact Results - Labs CBC & BMP: 02/15/17 10:40 02/15/17 10:40
[2017-02-15] MEDS: LABETALOL 20 MG/4 ML SYRINGE IV SCH ×2 (12:56→18:30)
--- NOTE | 2017-02-15 14:39 | CT Report ---
History: Postop fever. Abdominal pain Date: 02/15/2017 Study: CT abdomen and pelvis without IV contrast Comparison exam: January 29, 2017 CT abdomen and pelvis Technique: Spiral CT sections were obtained from the lung bases to the pubic symphysis following oral contrast and no IV contrast. Total DLP measures 757.3 mGy*cm. CT abdomen: The partially visualized lung bases are without ludwin pneumonia. A nasogastric tube is positioned with its tip in the lumen of the distal stomach. There is moderate diffuse fatty infiltration of the liver. The liver, bile ducts, gallbladder, spleen, kidneys, and pancreas are otherwise unremarkable in noncontrast CT appearance without significant change. There is strandy and hazy postsurgical change and inflammation of the ventral abdominal wall at the midline as well as the adjacent mesenteric fat. There is no evidence of pneumoperitoneum. There is a minimal amount of gas bubble density related to postop change within the abdomen, abutting the surgical incision at the periumbilical level. There is also small amount of soft tissue emphysema of the anterior abdominal wall at the superior margin of the surgical incision. There is contrast material throughout the small bowel and also reaching the right colon. There is no ludwin mechanical bowel obstruction. There is no aortic aneurysm. There is no obvious lymphadenopathy. CT pelvis: There are some occasional scattered diverticuli in the colon. There is no pelvic mass. There is trace free fluid in the pelvis. Impression: Postoperative changes of the anterior abdominal wall and adjacent intra-abdominal structures. No abscess. No ludwin obstruction PROCEDURE INTERPRETED AT [facility] DEPARTMENT OF RADIOLOGY Final Report Signed by: Dr. Mary Kay Dorantes
--- NOTE | 2017-02-15 15:17 | XRay Report ---
History: Postop fever Date: 02/15/2017 Study: Chest x-ray PA and lateral Comparison exam: Chest x-ray July 05, 2016 A left PICC line is positioned with its tip overlying the superior vena cava. A nasogastric tube enters the stomach. There is cardiomegaly. The mediastinal contour is unchanged. The pulmonary vasculature is not engorged. There is no pleural effusion. There is mild linear subsegmental atelectasis in the lung bases. There is no ludwin pneumonia. There is mild thoracic spondylosis. Impression: Minimal subsegmental atelectasis in the lung bases. Satisfactory positioning of the left PICC line and nasogastric tube PROCEDURE INTERPRETED AT [facility] DEPARTMENT OF RADIOLOGY Final Report Signed by: Dr. Mary Kay Dorantes
[2017-02-15] MEDS: FAT EMULSION 20% 250 ML IV SCH (15:47)
[2017-02-15] MEDS: [UNRECOGNIZED DRUG - OTHER] IV SCH (18:29)
[2017-02-15] MEDS: TRACE ELEMENTS IV SCH (18:29)
[2017-02-15] MEDS: MULTIVITAMIN IV SCH (18:29)
[2017-02-15] MEDS: INSULIN REGULAR IV SCH (18:29)
[2017-02-15] MEDS: GABAPENTIN 600 MG TABLET PO SCH (20:09)
[2017-02-16] MEDS: INSULIN LISPRO 100 UNIT/ML SUBCUT SCH ×4 (00:27→18:34)
[2017-02-16] MEDS: LABETALOL 20 MG/4 ML SYRINGE IV SCH ×4 (00:28→18:34)
[2017-02-16] MEDS: METOCLOPRAMIDE 10 MG/2 ML VIAL IV SCH ×4 (00:32→18:34)
[2017-02-16] MEDS: HYDROmorphone PCA 30 MG/30 ML SYRINGE IV SCH ×2 (06:29→10:00)
[2017-02-16] MEDS: LEVOTHYROXINE 100 MCG VIAL IV SCH (06:58)
[2017-02-16 07:53] LABS: Calcium 9.4 MG/DL (8.5-10.1); Osmolality,Calculated 297.8 MOS/KG (273-304); Potassium 4.6 MMOL/L (3.5-5.1)
--- NOTE | 2017-02-16 08:42 | Event Note ---
General Surgery Progress Note Chief complaint This patient is a 61-year-old woman admitted with a bowel obstruction and was treated by Dr. Vidal with laparotomy and lysis of adhesions on 01/31/2017 complicated by fascial dehiscence requiring return to the operating room with repair of fascial dehiscence using retention sutures on 02/11/2017 Interval history The patient was having temperature yesterday and persistent leukocytosis so CT scan of the abdomen and pelvis with p.o. contrast was performed. There was no evidence of abscess or bowel obstruction. There was postoperative changes present. The patient is passing small amount of gas but no bowel movements yet. The recorded NG tube output is only 450 but looking at the canister markings there is over a liter out yesterday. It is slightly less bilious. The patient is not walking in the hallway. She says is too hard with NG tube and TPN. Physical exam Afebrile, normal vital signs Chest is clear Heart is regular with no murmurs Abdomen is soft with hypoactive bowel sounds. It is distended. The incision is clean and dry with retention sutures in place. The midline incision was closed with clean staple line. Labs Reviewed, chemistry is stable Imaging None new Assessment and plan Continue TPN and NG tube to wall suction intermittently on low wall suction Increase activity and ambulate in the hallway Continue incentive spirometry There was no evidence of urinary tract infection or pneumonia. I did discuss the importance of getting up and walking in the hallway with the patient. She will try to do more of this today and hopefully by tomorrow her NG tube will be ready to come out.
[2017-02-16] MEDS ORDERED: INSULIN GLARGINE 100 UNIT/ML SUBCUT SCH (09:00)
[2017-02-16] MEDS: PANTOPRAZOLE 40 MG VIAL IV SCH ×2 (10:43→21:00)
--- NOTE | 2017-02-16 12:13 | Hospitalist Progress Note ---
Assessment and Plan (1) Hypothyroidism Status: Chronic Current Visit: Yes (2) Insulin dependent diabetes mellitus Status: Acute Assessment and plan: FSG increasing Increased Lantus Current Visit: Yes (3) Small bowel obstruction Status: Acute Current Visit: Yes (4) Hypertension Status: Acute Assessment and plan: No medications by mouth hydralazine prn labetalol IV scheduled clonopin patch Current Visit: Yes (5) Leukocytosis Status: Acute Assessment and plan: Improving Current Visit: Yes Hospitalist: Subjective Interval history: No acute events overnight. Now 24 hours since last fever. CT abdomen without acute process. Blood pressure better controlled today. Last night was first dose of increased Lantus, so will monitor. Exam - Constitutional Vitals: Period Temp Pulse Resp BP Sys/Evangelista Pulse Ox Last 24 Hr 98.0 F-99.1 F 85-102 18-21 144-188/62-84 97-100 General appearance: over weight - Head Head exam: Present: normocephalic, atraumatic - Eye Eye exam: Present: EOMI Pupils: Present: EMRE - ENT ENT exam: Present: normal exam, normal oropharynx - Neck Neck exam: Present: normal inspection. Absent: tenderness - Respiratory Respiratory exam: Present: clear to auscultation bilaterally. Absent: rales, wheezes - Cardiovascular Cardiovascular exam: Present: regular rate and rhythm - GI/Abdominal GI/Abdominal exam: Present: hypoactive bowel sounds, tenderness - Extremities Exam Extremities exam: Present: normal inspection - Back Exam Back exam: Present: normal inspection - Neurological Exam Neurological exam: Present: alert, oriented X3 - Psychiatric Psychiatric exam: Present: normal affect, normal mood - Skin Skin exam: Present: warm, intact Results - Labs CBC & BMP: 02/15/17 10:40 02/16/17 05:09
[2017-02-16] MEDS: FLUCONAZOLE 100 MG TABLET PO SCH (12:46)
[2017-02-16] MEDS: CAPTOPRIL 6.25 MG TABLET PO SCH ×2 (12:46→20:36)
[2017-02-16] MEDS: FLUTICASONE 50 MCG NASAL SPRAY 16 GM BOTTLE BOTH NARES SCH ×2 (12:46→20:36)
[2017-02-16] MEDS: CARVEDILOL 25 MG TABLET PO SCH ×2 (12:46→20:36)
[2017-02-16] MEDS: amLODIPine 10 MG TABLET PO SCH (12:47)
[2017-02-16] MEDS: GABAPENTIN 300 MG CAPSULE PO SCH ×2 (12:47→17:34)
[2017-02-16] MEDS: INSULIN REGULAR IV SCH (17:24)
[2017-02-16] MEDS: MULTIVITAMIN IV SCH (17:24)
[2017-02-16] MEDS: TRACE ELEMENTS IV SCH (17:24)
[2017-02-16] MEDS: [UNRECOGNIZED DRUG - OTHER] IV SCH (17:24)
[2017-02-16] MEDS: FAT EMULSION 20% 250 ML IV SCH (17:25)
[2017-02-16] MEDS: diphenhydrAMINE 50 MG/1 ML VIAL IV PRN (18:33)
[2017-02-16] MEDS: GABAPENTIN 600 MG TABLET PO SCH (20:36)
[2017-02-16] MEDS: LABETALOL 200 MG/40 ML VIAL IV SCH (21:03)
[2017-02-17] MEDS: LABETALOL 200 MG/40 ML VIAL IV SCH ×4 (00:41→19:00)
[2017-02-17] MEDS: METOCLOPRAMIDE 10 MG/2 ML VIAL IV SCH ×4 (00:49→18:59)
[2017-02-17] MEDS: INSULIN LISPRO 100 UNIT/ML SUBCUT SCH ×4 (00:50→22:11)
[2017-02-17 05:39] LABS: Basophils % 0.3 % (0.0-0.8); Eosinophils # 0.9 10*3/uL (0.0-0.87); Eosinophils % 6.9 % (0.00-10.9); Hematocrit 23.7 VOL% (35.7-47.0); Hemoglobin 7.2 GM/DL (12.0-16.0); Immature Granulocytes % 0.4 %; Immature Granulocytes Absolute 0.05 #; Lymphocytes # 3.9 10*3/uL (1.4-4.0); Lymphocytes % 32.2 % (21.3-54.2); Mean Corpuscular HGB Conc 30.4 GM/DL (32-36); Mean Corpuscular Hemoglobin 27 PG (27-34); Mean Corpuscular Volume 88.1 FL (87-102); Monocytes # 1.3 10*3/uL (0.11-0.8); Monocytes % 10.4 % (1.7-12.7); Neutrophils # 6.1 10*3/uL (1.4-7.4); Neutrophils % 49.8 % (38.7-73.9); Platelet Count 310 T/CUMM (130-400); Red Blood Count 2.69 MC/CUMM (3.8-5.5); Red Cell Distribution Width 14.3 % (9.3-17.3); White Blood Count 12.3 T/CUMM (4-12)
[2017-02-17 06:09] LABS: Magnesium 2.2 MG/DL (1.8-2.4)
[2017-02-17 06:13] LABS: Osmolality,Calculated 295.8 MOS/KG (273-304); Potassium 4.3 MMOL/L (3.5-5.1)
[2017-02-17] MEDS: LEVOTHYROXINE 100 MCG VIAL IV SCH (06:49)
[2017-02-17] MEDS: HYDROmorphone PCA 30 MG/30 ML SYRINGE IV SCH (06:50)
--- NOTE | 2017-02-17 09:21 | Event Note ---
Afebrile vital signs stable. NG tube with large amount out yesterday, only about 100 overnight. She has been up to a chair but not ambulating. On exam her abdomen is soft and appropriately tender. The lower portion of the incision has purulence draining. The lower abdelrahman were removed and the wound opened. The purulence was drained and flushed with irrigant until clear and the wound was packed with 4 x 4 gauze. The pocket of purulence appeared fairly small. There is no significant erythema. There is some mild purulence exuding from the lower retention suture. Hopefully this will stop now that the pocket is been adequately opened. Encouraged her to get up and ambulate. Hopefully the NG tube output remains minimal and her diet can be advanced in the next few days. Continue TPN until tolerating regular diet.
[2017-02-17] MEDS: CARVEDILOL 25 MG TABLET PO SCH ×2 (09:27→21:14)
[2017-02-17] MEDS: CAPTOPRIL 6.25 MG TABLET PO SCH ×2 (09:27→21:13)
[2017-02-17] MEDS: FLUCONAZOLE 100 MG TABLET PO SCH (09:28)
[2017-02-17] MEDS: amLODIPine 10 MG TABLET PO SCH (09:28)
[2017-02-17] MEDS: GABAPENTIN 300 MG CAPSULE PO SCH ×2 (09:28→15:25)
[2017-02-17] MEDS: PANTOPRAZOLE 40 MG VIAL IV SCH ×2 (09:37→23:54)
[2017-02-17] MEDS: INSULIN GLARGINE 100 UNIT/ML SUBCUT SCH (09:38)
--- NOTE | 2017-02-17 10:23 | Hospitalist Progress Note ---
Assessment and Plan (1) Hypothyroidism Status: Chronic Current Visit: Yes (2) Insulin dependent diabetes mellitus Status: Acute Assessment and plan: FSG increasing Increased Lantus Current Visit: Yes (3) Small bowel obstruction Status: Acute Current Visit: Yes (4) Hypertension Status: Acute Assessment and plan: No medications by mouth hydralazine prn labetalol IV scheduled clonopin patch to Q3 days Current Visit: Yes (5) Leukocytosis Status: Acute Assessment and plan: Improving Current Visit: Yes Hospitalist: Subjective Interval history: No acute events overnight. Wound partially opened and drained by surgery at bedside this morning. Attempting to control blood pressure with po medications. Will change clonidine patch to Q3 days instead of Q7. Increasing Lantus to 14 tonight. Exam - Constitutional Vitals: Period Temp Pulse Resp BP Sys/Evangelista Pulse Ox Last 24 Hr 98.3 F-99.3 F 85-90 16-20 154-184/68-78 97-99 General appearance: over weight - Head Head exam: Present: normocephalic, atraumatic - Eye Eye exam: Present: EOMI Pupils: Present: EMRE - ENT ENT exam: Present: normal exam, other (NG tube in place) - Neck Neck exam: Present: normal inspection. Absent: tenderness - Respiratory Respiratory exam: Present: clear to auscultation bilaterally. Absent: rales, wheezes - Cardiovascular Cardiovascular exam: Present: regular rate and rhythm - GI/Abdominal GI/Abdominal exam: Present: hypoactive bowel sounds, tenderness - Extremities Exam Extremities exam: Present: normal inspection - Back Exam Back exam: Present: normal inspection - Neurological Exam Neurological exam: Present: alert, oriented X3 - Psychiatric Psychiatric exam: Present: normal affect, normal mood - Skin Skin exam: Present: warm, intact Results - Labs CBC & BMP: 02/17/17 04:02 02/17/17 04:02
[2017-02-17] MEDS: CLINDAMYCIN INJ 900 MG in PREMIX 1 EACH IV SCH ×3 (10:28→21:20)
[2017-02-17] MEDS: FLUTICASONE 50 MCG NASAL SPRAY 16 GM BOTTLE BOTH NARES SCH ×2 (10:34→21:14)
[2017-02-17] MEDS: FAT EMULSION 20% 250 ML IV SCH (15:23)
[2017-02-17] MEDS: INSULIN REGULAR IV SCH (21:11)
[2017-02-17] MEDS: [UNRECOGNIZED DRUG - OTHER] IV SCH (21:11)
[2017-02-17] MEDS: TRACE ELEMENTS IV SCH (21:11)
[2017-02-17] MEDS: MULTIVITAMIN IV SCH (21:11)
[2017-02-17] MEDS: GABAPENTIN 600 MG TABLET PO SCH (21:14)
[2017-02-17] MEDS: diphenhydrAMINE 50 MG/1 ML VIAL IV PRN (21:19)
[2017-02-18] MEDS: METOCLOPRAMIDE 10 MG/2 ML VIAL IV SCH ×4 (00:27→19:03)
[2017-02-18] MEDS: LABETALOL 200 MG/40 ML VIAL IV SCH ×4 (00:28→19:53)
[2017-02-18] MEDS: INSULIN LISPRO 100 UNIT/ML SUBCUT SCH ×4 (00:29→19:06)
[2017-02-18] MEDS: CLINDAMYCIN INJ 900 MG in PREMIX 1 EACH IV SCH ×4 (03:47→21:35)
[2017-02-18 05:53] LABS: Osmolality,Calculated 299.6 MOS/KG (273-304); Potassium 4.4 MMOL/L (3.5-5.1)
[2017-02-18] MEDS: HYDROmorphone PCA 30 MG/30 ML SYRINGE IV SCH (06:19)
[2017-02-18] MEDS: LEVOTHYROXINE 100 MCG VIAL IV SCH (06:37)
--- NOTE | 2017-02-18 08:36 | Hospitalist Progress Note ---
Assessment and Plan (1) Insulin dependent diabetes mellitus Status: Chronic Assessment and plan: Stable with hyperalimentation. Current Visit: Yes (2) Small bowel obstruction Status: Acute Assessment and plan: Surgical relief 01/31/2017 Current Visit: Yes Hospitalist: Subjective Interval history: 61 yo female diabetic presenting with bowel obstruction with surgical relief January 31 after failure of conservative management. Still requiring NG suction , however reports 2 bowel movements yesterday and KUB is improved. She has had previous hysterectomy and appendectomy. Vitals are stable and CBG control adequate. She has established type 2 diabetes mellitus and hypertension adequately controlled on current. Exam - Constitutional Vitals: Period Temp Pulse Resp BP Sys/Evangelista Pulse Ox Last 24 Hr 97.3 F-99.3 F 82-87 18-20 147-191/64-75 94-99 General appearance: over weight - Respiratory Respiratory exam: Present: clear to auscultation bilaterally. Absent: rales, rhonchi, wheezes - Cardiovascular Cardiovascular exam: Present: regular rate and rhythm - GI/Abdominal GI/Abdominal exam: Present: hypoactive bowel sounds. Absent: rebound - Extremities Exam Extremities exam: Absent: edema - Neurological Exam Neurological exam: Present: alert, oriented X3 - Psychiatric Psychiatric exam: Present: depressed Results - Labs CBC & BMP: 02/17/17 04:02 02/18/17 04:47
--- NOTE | 2017-02-18 08:41 | Event Note ---
Afebrile vital signs stable. Patient reports a bowel movement yesterday. She is having flatus. She has no nausea or vomiting. Her main complaint is of the NG tube and her throat being sore. NG tube is put out about a liter since yesterday but the patient has been taking in popsicles ice chips and some Sprite. On exam her abdomen is soft and appropriately tender and the incision looks good. The wound appears clean with no further purulence. There is no erythema. Bowel sounds are present. Overall her abdomen appears less distended Plan: We'll check abdominal x-ray. If no significant distention of small bowel loops and we will remove the NG tube and allow her to continue with popsicles and ice chips for now.
--- NOTE | 2017-02-18 09:18 | XRay Report ---
XR abdomen 2V Indication: Ileus Comparison: 07 February 2017 Findings: No free fluid or free air seen. Distended loops of bowel on the previous exam and improved. There is some residual contrast within the colon. Remaining bowel gas pattern appears within normal limits. No abnormal calcifications are present. No other abnormality is identified. Impression: Improved bowel gas pattern when compared to previous exam. PROCEDURE INTERPRETED AT [facility] DEPARTMENT OF RADIOLOGY Final Report Signed by: Dr. Hakeem Munoz
[2017-02-18] MEDS: INSULIN GLARGINE 100 UNIT/ML SUBCUT SCH (10:06)
[2017-02-18] MEDS: PANTOPRAZOLE 40 MG VIAL IV SCH ×2 (10:08→21:31)
[2017-02-18] MEDS: FLUTICASONE 50 MCG NASAL SPRAY 16 GM BOTTLE BOTH NARES SCH ×2 (11:20→21:53)
[2017-02-18] MEDS: CARVEDILOL 25 MG TABLET PO SCH ×2 (11:20→21:33)
[2017-02-18] MEDS: CAPTOPRIL 6.25 MG TABLET PO SCH ×2 (11:20→21:33)
[2017-02-18] MEDS: FLUCONAZOLE 100 MG TABLET PO SCH (11:20)
[2017-02-18] MEDS: GABAPENTIN 300 MG CAPSULE PO SCH ×2 (11:21→15:16)
[2017-02-18] MEDS: amLODIPine 10 MG TABLET PO SCH (11:21)
[2017-02-18] MEDS: FAT EMULSION 20% 250 ML IV SCH (15:21)
[2017-02-18] MEDS: diphenhydrAMINE 50 MG/1 ML VIAL IV PRN (21:31)
[2017-02-18] MEDS: GABAPENTIN 600 MG TABLET PO SCH (21:33)
[2017-02-18] MEDS: INSULIN REGULAR IV SCH (21:53)
[2017-02-18] MEDS: TRACE ELEMENTS IV SCH (21:53)
[2017-02-18] MEDS: MULTIVITAMIN IV SCH (21:53)
[2017-02-18] MEDS: [UNRECOGNIZED DRUG - OTHER] IV SCH (21:53)
[2017-02-19] MEDS: METOCLOPRAMIDE 10 MG/2 ML VIAL IV SCH ×4 (00:20→17:53)
[2017-02-19] MEDS: LABETALOL 200 MG/40 ML VIAL IV SCH ×4 (00:20→20:11)
[2017-02-19] MEDS: INSULIN LISPRO 100 UNIT/ML SUBCUT SCH ×4 (02:26→18:20)
[2017-02-19] MEDS: CLINDAMYCIN INJ 900 MG in PREMIX 1 EACH IV SCH ×4 (03:40→22:00)
[2017-02-19] MEDS: HYDROmorphone PCA 30 MG/30 ML SYRINGE IV SCH (05:52)
[2017-02-19] MEDS: LEVOTHYROXINE 100 MCG VIAL IV SCH (06:21)
--- NOTE | 2017-02-19 07:16 | Hospitalist Progress Note ---
Assessment and Plan (1) Insulin dependent diabetes mellitus Status: Chronic Assessment and plan: Stable with hyperalimentation. Current Visit: Yes (2) Small bowel obstruction Status: Acute Assessment and plan: Surgical relief 01/31/2017, NG drainage discontinued 02/18. Current Visit: Yes Hospitalist: Subjective Interval history: 61 yo female diabetic presenting with bowel obstruction with surgery done on January 31 after failure of conservative management. Prolonged NG suction terminated yesterday after bowel movements and improved KUB appearance. Has tolerated without nausea or emesis. Her diabetic control is adequate. Exam - Constitutional Vitals: Period Temp Pulse Resp BP Sys/Evangelista Pulse Ox Last 24 Hr 96.3 F-97.8 F 69-78 14-20 134-168/63-88 97-99 General appearance: over weight - Respiratory Respiratory exam: Present: clear to auscultation bilaterally. Absent: rales, rhonchi, wheezes - Cardiovascular Cardiovascular exam: Present: regular rate and rhythm - GI/Abdominal GI/Abdominal exam: Present: normal bowel sounds. Absent: tenderness - Extremities Exam Extremities exam: Absent: edema - Neurological Exam Neurological exam: Present: alert, oriented X3 - Psychiatric Psychiatric exam: Present: normal affect, normal mood Results - Labs CBC & BMP: 02/17/17 04:02 02/18/17 04:47
[2017-02-19 08:44] LABS: Basophils % 0.3 % (0.0-0.8); Eosinophils # 0.8 10*3/uL (0.0-0.87); Eosinophils % 7.9 % (0.00-10.9); Hematocrit 23.5 VOL% (35.7-47.0); Hemoglobin 7.2 GM/DL (12.0-16.0); Immature Granulocytes % 0.3 %; Immature Granulocytes Absolute 0.03 #; Lymphocytes # 3.5 10*3/uL (1.4-4.0); Lymphocytes % 35.6 % (21.3-54.2); Mean Corpuscular HGB Conc 30.6 GM/DL (32-36); Mean Corpuscular Hemoglobin 27 PG (27-34); Mean Corpuscular Volume 88.7 FL (87-102); Mean Platelet Volume 12.8 FL (9.6-12.0); Monocytes % 10.2 % (1.7-12.7); Neutrophils # 4.5 10*3/uL (1.4-7.4); Neutrophils % 45.7 % (38.7-73.9); Platelet Count 361 T/CUMM (130-400); Red Blood Count 2.65 MC/CUMM (3.8-5.5); White Blood Count 9.8 T/CUMM (4-12)
[2017-02-19 09:04] LABS: Eosinophils 9 % (0-10); Hypochromasia 1+; Lymphocytes 43 % (20-55); Microcytosis 1+; Segmented Neutrophils 42 % (50-85); Total Cells Counted 100
[2017-02-19 09:05] LABS: Platelet Estimate Normal
--- NOTE | 2017-02-19 09:18 | Event Note ---
Afebrile vital signs stable. Abdominal x-ray yesterday looked great with no distended small bowel loops. Her NG tube was removed and she's been tolerating ice chips Popsicles and spine without any problems. She denies any nausea or vomiting. She had another bowel movement this morning. She's been ambulating more. On exam her abdomen is soft and appropriately tender with excellent bowel sounds. The lower wound appears clean. There is no erythema or cellulitis. White blood cell count is normal. The wound was repacked. We'll advance to clear liquids. If she tolerates that we'll advance her diet. Possible discharge later this week when she is tolerating diet and off TPN.
[2017-02-19] MEDS: PANTOPRAZOLE 40 MG VIAL IV SCH ×2 (09:26→21:56)
[2017-02-19] MEDS: GABAPENTIN 300 MG CAPSULE PO SCH ×2 (09:26→15:55)
[2017-02-19] MEDS: INSULIN GLARGINE 100 UNIT/ML SUBCUT SCH (09:26)
[2017-02-19] MEDS: amLODIPine 10 MG TABLET PO SCH (09:27)
[2017-02-19] MEDS: CAPTOPRIL 6.25 MG TABLET PO SCH ×2 (09:27→21:48)
[2017-02-19] MEDS: CARVEDILOL 25 MG TABLET PO SCH ×2 (09:27→21:47)
[2017-02-19] MEDS: FLUTICASONE 50 MCG NASAL SPRAY 16 GM BOTTLE BOTH NARES SCH ×2 (09:37→21:54)
[2017-02-19 09:40] LABS: Calcium 8.8 MG/DL (8.5-10.1); Osmolality,Calculated 295.7 MOS/KG (273-304); Potassium 4.3 MMOL/L (3.5-5.1)
[2017-02-19] MEDS: FAT EMULSION 20% 250 ML IV SCH (15:38)
[2017-02-19] MEDS: diphenhydrAMINE CAP 25 MG CAPSULE PO PRN (15:38)
[2017-02-19] MEDS: [UNRECOGNIZED DRUG - OTHER] IV SCH (17:58)
[2017-02-19] MEDS: MULTIVITAMIN IV SCH (17:58)
[2017-02-19] MEDS: INSULIN REGULAR IV SCH (17:58)
[2017-02-19] MEDS: TRACE ELEMENTS IV SCH (17:58)
[2017-02-19] MEDS: diphenhydrAMINE 50 MG/1 ML VIAL IV PRN (19:25)
[2017-02-19] MEDS: GABAPENTIN 600 MG TABLET PO SCH (21:47)
[2017-02-20] MEDS: METOCLOPRAMIDE 10 MG/2 ML VIAL IV SCH ×4 (01:17→17:55)
[2017-02-20] MEDS: LABETALOL 200 MG/40 ML VIAL IV SCH ×4 (01:19→21:04)
[2017-02-20] MEDS: INSULIN LISPRO 100 UNIT/ML SUBCUT SCH ×4 (01:29→17:55)
[2017-02-20] MEDS: diphenhydrAMINE CAP 25 MG CAPSULE PO PRN ×3 (03:56→15:37)
[2017-02-20] MEDS: CLINDAMYCIN INJ 900 MG in PREMIX 1 EACH IV SCH ×4 (03:57→21:06)
[2017-02-20 06:01] LABS: Calcium 8.5 MG/DL (8.5-10.1); Potassium 4.1 MMOL/L (3.5-5.1)
[2017-02-20 06:03] LABS: Magnesium 2.2 MG/DL (1.8-2.4); Phosphorous 4.8 MG/DL (2.5-4.9)
[2017-02-20] MEDS: LEVOTHYROXINE 100 MCG VIAL IV SCH (06:52)
--- NOTE | 2017-02-20 07:39 | Hospitalist Progress Note ---
Assessment and Plan (1) Insulin dependent diabetes mellitus Status: Chronic Assessment and plan: Stable with hyperalimentation. Current Visit: Yes (2) Small bowel obstruction Status: Acute Assessment and plan: Surgical relief 01/31/2017, NG drainage discontinued 02/18. Bowel function restored. Current Visit: Yes Hospitalist: Subjective Interval history: 61 yo female diabetic presenting with small bowel obstruction with surgery January 31 after failure of conservative management. Prolonged NG aspiration was discontinued February 18; she is tolerating diet and having bowel action. Diabetic control is adequate and anticipate less insulin requirement as she is weaned from hyperalimentation. Exam - Constitutional Vitals: Period Temp Pulse Resp BP Sys/Evangelista Pulse Ox Last 24 Hr 96.9 F-98.7 F 64-77 18-20 112-165/57-76 96-99 General appearance: over weight - Respiratory Respiratory exam: Present: clear to auscultation bilaterally. Absent: rales, rhonchi, wheezes - Cardiovascular Cardiovascular exam: Present: regular rate and rhythm - GI/Abdominal GI/Abdominal exam: Present: normal bowel sounds. Absent: tenderness - Extremities Exam Extremities exam: Absent: edema - Neurological Exam Neurological exam: Present: alert, oriented X3 Results - Labs CBC & BMP: 02/19/17 08:30 02/20/17 05:08
--- NOTE | 2017-02-20 07:47 | Event Note ---
Afebrile vital signs stable. Patient is doing well. Tolerating full liquids without any problems. No nausea or vomiting. On exam the abdomen is soft and appropriately tender and nondistended. The lower wound appears clean and healthy. I saw a small amount of purulence coming from under the middle red rubber catheter for the retention suture and open some abdelrahman in this area and there was a very small pocket that was opened of purulence. I didn't express any further purulence in the wound. There is no erythema. We'll continue local wound care. Plan for discharge tomorrow she is tolerating regular diet. Home health is being set up. She looks great and feels good and wants to go home soon.
[2017-02-20] MEDS: CAPTOPRIL 6.25 MG TABLET PO SCH ×2 (08:48→21:02)
[2017-02-20] MEDS: PANTOPRAZOLE 40 MG VIAL IV SCH ×2 (08:48→21:04)
[2017-02-20] MEDS: GABAPENTIN 300 MG CAPSULE PO SCH ×2 (08:48→15:37)
[2017-02-20] MEDS: amLODIPine 10 MG TABLET PO SCH (08:48)
[2017-02-20] MEDS: CARVEDILOL 25 MG TABLET PO SCH ×2 (08:48→21:03)
[2017-02-20] MEDS: INSULIN GLARGINE 100 UNIT/ML SUBCUT SCH (08:48)
[2017-02-20] MEDS: FLUTICASONE 50 MCG NASAL SPRAY 16 GM BOTTLE BOTH NARES SCH ×2 (12:18→21:03)
[2017-02-20] MEDS: GABAPENTIN 600 MG TABLET PO SCH (21:03)
[2017-02-21] MEDS: LABETALOL 200 MG/40 ML VIAL IV SCH ×2 (00:04→06:02)
[2017-02-21] MEDS: diphenhydrAMINE CAP 25 MG CAPSULE PO PRN ×2 (00:14→10:57)
[2017-02-21] MEDS: METOCLOPRAMIDE 10 MG/2 ML VIAL IV SCH ×2 (00:14→06:18)
[2017-02-21] MEDS: INSULIN LISPRO 100 UNIT/ML SUBCUT SCH ×2 (00:16→06:19)
[2017-02-21] MEDS: CLINDAMYCIN INJ 900 MG in PREMIX 1 EACH IV SCH ×2 (04:23→10:33)
[2017-02-21 05:45] LABS: Calcium 8.2 MG/DL (8.5-10.1); Osmolality,Calculated 289.4 MOS/KG (273-304); Potassium 4.8 MMOL/L (3.5-5.1)
[2017-02-21] MEDS: LEVOTHYROXINE 100 MCG VIAL IV SCH (06:22)
--- NOTE | 2017-02-21 08:50 | Discharge Summary ---
Hospital Course - Hospital Course Hospital Course: Assessment and Plan (1) Anemia Status: Acute Assessment and plan: Hemoglobin is stable but low. Patient is asymptomatic. Repeat CBC as outpatient. Current Visit: Yes Qualifiers: Anemia type: other cause Other causes of anemia: acute posthemorrhagic Qualified Code(s): D62 - Acute posthemorrhagic anemia (2) Hypertension Status: Acute Assessment and plan: Controlled with medications. She was given prescriptions upon discharge. Please see discharge summary. Current Visit: Yes Qualifiers: Hypertension type: essential hypertension Qualified Code(s): I10 - Essential (primary) hypertension (3) Small bowel obstruction Status: Resolved Current Visit: Yes (4) Hypothyroidism Status: Chronic Current Visit: Yes Qualifiers: Hypothyroidism type: acquired Qualified Code(s): E03.9 - Hypothyroidism, unspecified (5) Insulin dependent diabetes mellitus Status: Chronic Current Visit: Yes Hospitalist: Subjective Interval history: Ms. Harrison is seen this morning in anticipation of her discharge home by Dr. Vidal. The patient was admitted with a small bowel obstruction and required operative intervention. She had a prolonged postoperative course but is doing well and tolerating diet and having bowel movements. She is being discharged home today. Her medications have been addressed and new prescriptions given for blood pressure medications that were started during the course of this hospitalization. She is advised to follow-up with her primary care physician as an outpatient as well as keep her follow-up with Dr. Vidal. She denies any complaints this morning. PER DR. EVANS: Afebrile vital signs stable. Doing well. Tolerating regular diet. Passing lots of flatus. No nausea or vomiting. She is ambulating well. On exam her abdomen is soft and appropriately tender and incision looks okay. The 2 small open wounds are clean and healthy with no significant drainage and no purulence. She'll be discharged home today. Some of her home medications have been changed by hospitalist service. She was given a prescription for [place]. She is instructed to take stool softeners. I'll see her the week after next in clinic. She was instructed to call sooner for any return of nausea vomiting worsening abdominal pain and redness or drainage from the incisions, fever, or any other concern. - Time spent with patient Time with patient DS: Greater than 30 minutes (Total discharge time for this patient, including [id number] time, clinical documentation, medication reconciliation, and discharge planning was 40 minutes.) Diagnosis - Discharge Diagnosis (1) Anemia Status: Acute (2) Hypertension Status: Chronic (3) Leukocytosis Status: Acute (4) Hypothyroidism Status: Chronic (5) Insulin dependent diabetes mellitus Status: Chronic (6) Small bowel obstruction Status: Resolved Specialty Discharge - Follow Up or Referrals Follow up with: Aftab Evans MD [Physician] - (Appointment with Dr. Evans on March 05 at 10AM.) Discharge Plan - Discharge Data Disposition: Disch To Home/Self Care Condition at Discharge: Stable Contact your physician if you experience:: fever over 101, Difficulty voiding, Nausea/Vomiting, pain uncontrolled by pain medications - Discharge Medications New Carvedilol [Coreg] 25 mg PO BID #60 tablet Fluticasone 50 Mcg Nasal [place] [Flonase Nasal [place]] 1 spray BOTH NARES BID spray HYDROcodone/ACETAMIN 7.5-325 [[place] 7.5-325] 1 - 2 tablet PO Q4-6H PRN #0 tablet PRN Reason: Pain Moderate (4-7) cloNIDine 0.3 MG/24 HR PATCH [Betlxdqj-RMN-6 Patch] 1 patch TRANSDERM Q7DAY # 5 patch diphenhydrAMINE CAP [Benadryl Cap] 25 mg PO Q6H PRN #0 capsule PRN Reason: Allergic Reaction amLODIPine [Norvasc] 10 mg PO DAILY #30 tablet Continue Cholecalciferol (Vitamin D3) [Vitamin D3 Chew Tab] 1,000 unit PO DAILY traMADol TAB [Ultram] 50 mg PO Q4-6H PRN PRN Reason: Pain Mild To Moderate (1-7) Levothyroxine Tab [Synthroid Tab] 50 mcg PO DAILY@0700 Fenofibrate,Micronized [Antara] 90 mg PO DAILY Furosemide Tab [Lasix Tab] 20 mg PO DAILY Gabapentin 300 mg PO BID Metformin HCl 1,000 mg PO BID Insulin Regular [HumuLIN R] 65 unit SUBCUT AC LUNCH Insulin Regular [HumuLIN R] 85 unit SUBCUT DAILY W/BREAKFAST Methocarbamol 750 mg PO QID Gabapentin 1 tablet PO BEDTIME Multivitamin [One Daily] 1 each PO DAILY Pantoprazole Sodium [Protonix] 40 mg PO DAILY Insulin Regular [HumuLIN R] 65 unit SUBCUT AC SUPPER Discontinued Clonidine HCl [Clonidine HCl ER] 0.1 mg PO BID Amoxicillin/Potassium Clav [Amox Tr-K Clv 875-125 mg Tab] 1 each PO BID Verapamil HCl [Verapamil ER Tab] 240 mg PO DAILY - Follow Up or Referral Follow Up: Aftab Evans MD [Physician] - (Appointment with Dr. Evans on March 05 at 10AM.) - Forms/Instructions Exam - Constitutional Vitals: Period Temp Pulse Resp BP Sys/Evangelista Pulse Ox Last 24 Hr 96 F-97.9 F 59-71 18-20 100-154/53-60 94-99 Discharge Results Procedures and tests throughout hospitalization: Pending Orders 02/24/17 04:00 Basic Metabolic Panel MOTH Magnesium MOTH Phosphorous MOTH Triglycerides MOTH Labs on day of discharge: Labs from last 24 hours 02/21/17 02/21/17 02/20/17 05:53 04:10 23:46 Sodium 140 Potassium 4.8 Chloride 106 Carbon Dioxide 25 Anion Gap 13.8 BUN 32 H Creatinine 1.80 H GFR Calculation 41 BUN/Creatinine Ratio 17.00 Glucose 172 H POC Glucose 183 H 257 H Calculated Osmolality 289.4 Calcium 8.2 L 02/20/17 02/20/17 17:43 11:50 Sodium Potassium Chloride Carbon Dioxide Anion Gap BUN Creatinine GFR Calculation BUN/Creatinine Ratio Glucose POC Glucose 278 H 167 H Calculated Osmolality Calcium DS: Provider Date of admission: 01/29/17 04:09 Primary care physician: . No PCP Attending physician on admission: Aftab Evans MD Consults: 01/29/17 07:53 Consult to Physician [CONS] Routine Comment: Consulting Provider: Consulting Provider Notified: Yes When should Consulting Provider be notified: Now Consult to Specialist Group: Hospitalist When should Consulting Provider be notified: Now Person Notified: reina isaac Date Notified: 01/29/17 Time Notified: 08:23 01/31/17 09:09 Consult to Dietitian [CONS] Routine Reason for Dietitian: TPN/PPN-Initiate/Manage 02/18/17 17:49 Consult to Physical Therapy [CONS] Routine Reason for Physical Therapy: Evaluate and Treat Consult Comment: does pt need swing bed or tmr? 02/18/17 17:50 Consult to Case Mgmt/Social Srvs [CONS] Routine Reason for Case Mgmt/Social Srvs: Discharge Planning Discharging clinician: Chavo Perez MD Expected date of discharge: 02/21/17
[2017-02-21] MEDS: CAPTOPRIL 6.25 MG TABLET PO SCH (08:54)
[2017-02-21] MEDS: CARVEDILOL 25 MG TABLET PO SCH (08:54)
[2017-02-21] MEDS: PANTOPRAZOLE 40 MG VIAL IV SCH (08:54)
[2017-02-21] MEDS: amLODIPine 10 MG TABLET PO SCH (08:54)
[2017-02-21] MEDS: GABAPENTIN 300 MG CAPSULE PO SCH (08:54)
--- NOTE | 2017-02-21 08:54 | Hospitalist Progress Note ---
Assessment and Plan (1) Anemia Status: Acute Assessment and plan: Hemoglobin is stable but low. Patient is asymptomatic. Repeat CBC as outpatient. Current Visit: Yes Qualifiers: Anemia type: other cause Other causes of anemia: acute posthemorrhagic Qualified Code(s): D62 - Acute posthemorrhagic anemia (2) Hypertension Status: Acute Assessment and plan: Controlled with medications. She was given prescriptions upon discharge. Please see discharge summary. Current Visit: Yes Qualifiers: Hypertension type: essential hypertension Qualified Code(s): I10 - Essential (primary) hypertension (3) Small bowel obstruction Status: Resolved Current Visit: Yes (4) Hypothyroidism Status: Chronic Current Visit: Yes Qualifiers: Hypothyroidism type: acquired Qualified Code(s): E03.9 - Hypothyroidism, unspecified (5) Insulin dependent diabetes mellitus Status: Chronic Current Visit: Yes Hospitalist: Subjective Interval history: Ms. Harrison is seen this morning in anticipation of her discharge home by Dr. Vidal. The patient was admitted with a small bowel obstruction and required operative intervention. She had a prolonged postoperative course but is doing well and tolerating diet and having bowel movements. She is being discharged home today. Her medications have been addressed and new prescriptions given for blood pressure medications that were started during the course of this hospitalization. She is advised to follow-up with her primary care physician as an outpatient as well as keep her follow-up with Dr. Vidal. She denies any complaints this morning. Exam - Constitutional Vitals: Period Temp Pulse Resp BP Sys/Evangelista Pulse Ox Last 24 Hr 96 F-97.9 F 59-71 18-20 100-154/53-60 94-99 Exam: Constitutional System: No distress. No tremulousness. Head: Normocephalic, atraumatic. Ears, Nose and Throat System: No pain or tenderness. No epistaxis or discharge Eyes System: Pupils equal, round, and reactive. Extraocular muscles intact. Neck: Supple, without adenopathy, No jugular venous distention. No thyromegaly, neck mass, or prior surgery apparent. Respiratory System: Chest clear to auscultation. Cardiovascular System: Heart with regular rate and rhythm. No murmur. GI System: Abdomen soft, nontender. Normo active bowel sounds present. Musculoskeletal System: limbs with no pedal edema. Full distal pulses. Neurological System: No discernable sensory deficit. No aphasia Psychiatric System: Conversation is rational Results - Labs CBC & BMP: 02/19/17 08:30 02/21/17 04:10 Lab Results: I have reviewed the past 24 hour labs Specialty Discharge - Follow Up or Referrals Follow up with: Aftab Manriquez MD [Physician] -
[2017-02-21] MEDS: INSULIN GLARGINE 100 UNIT/ML SUBCUT SCH (08:56)
[2017-02-21] MEDS: FLUTICASONE 50 MCG NASAL SPRAY 16 GM BOTTLE BOTH NARES SCH (08:57)
--- NOTE | 2017-02-21 09:23 | Event Note ---
Afebrile vital signs stable. Doing well. Tolerating regular diet. Passing lots of flatus. No nausea or vomiting. She is ambulating well. On exam her abdomen is soft and appropriately tender and incision looks okay. The 2 small open wounds are clean and healthy with no significant drainage and no purulence. She'll be discharged home today. Some of her home medications have been changed by hospitalist service. She was given a prescription for [place]. She is instructed to take stool softeners. I'll see her the week after next in clinic. She was instructed to call sooner for any return of nausea vomiting worsening abdominal pain and redness or drainage from the incisions, fever, or any other concern.
[2017-02-21 11:18] VITALS: BP 148/67
== END 2017-02-21 11:40 | disposition home or self-care (01) | DRG 336 ==
LOC: N.ED 00:55 → N.EDINP 04:09 → N.3E 04:35 → N.CC 01-31 11:18 → N.4E 02-06 15:02
PROVIDERS: ADMIT Surgery; ATTEND Surgery

== ENCOUNTER 2018-02-03 21:14 | Inpatient (IN) ==
[2018-02-03] MEDS ORDERED: INSULIN REGULAR 100 UNIT/ML IV STA (22:24)
[2018-02-03] MEDS ORDERED: ONDANSETRON 4 MG/2 ML VIAL IV STA (22:24)
[2018-02-03] MEDS ORDERED: SODIUM CHLORIDE 0.9% 1,000 ML IV STA (22:24)
[2018-02-03] MEDS ORDERED: ONDANSETRON 4 MG/2 ML VIAL ONE (22:28)
[2018-02-03] MEDS ORDERED: INSULIN REGULAR 100 UNIT/ML ONE (22:30)
[2018-02-03 22:43] LABS: Basophils # 0.1 10*3/uL (0.0-0.2); Basophils % 0.6 % (0.0-0.8); Eosinophils # 0.2 10*3/uL (0.0-0.87); Eosinophils % 2.1 % (0.00-10.9); Hematocrit 28.6 VOL% (35.7-47.0); Hemoglobin 9.4 GM/DL (12.0-16.0); Immature Granulocytes % 0.2 %; Immature Granulocytes Absolute 0.02 #; Lymphocytes # 4.8 10*3/uL (1.4-4.0); Lymphocytes % 52.9 % (21.3-54.2); Mean Corpuscular HGB Conc 32.9 GM/DL (32-36); Mean Corpuscular Hemoglobin 25 PG (27-34); Mean Corpuscular Volume 74.5 FL (87-102); Monocytes # 0.4 10*3/uL (0.11-0.8); Monocytes % 4.6 % (1.7-12.7); Neutrophils # 3.6 10*3/uL (1.4-7.4); Neutrophils % 39.6 % (38.7-73.9); Platelet Count 251 T/CUMM (130-400); Red Blood Count 3.84 MC/CUMM (3.8-5.5); Red Cell Distribution Width 20.1 % (9.3-17.3); White Blood Count 9.1 T/CUMM (4-12)
[2018-02-03 23:12] LABS: Apearance,Urine CLEAR (Clear); Bacteria,Urine Occasional /HPF (Few); Bilirubin,Urine Negative (Negative); Blood, Urine Negative (Negative); Glucose,Urine (UA) >=500 mg/dL (Negative); Ketones,Urine Negative (Negative); Nitrite,Urine Negative (Negative); Protein,Urine 100 MG/DL; RBC,Urine 2 /HPF (0-4); Squamous Epithelial Cell,Urine Occasional /HPF (0-10); Urine Color Straw (Yellow); Urine Specific Gravity 1.013 (1.001-1.035); Urine Urobilinogen < 2.0 EU/DL (0.2-1.0); WBC,Urine 1 /HPF (0-6)
[2018-02-03 23:39] LABS: Calcium 8.2 MG/DL (8.5-10.1)
[2018-02-03 23:40] LABS: Alanine Aminotransferase 26 U/L (13-56); Albumin 3.3 G/DL (3.4-5.0); Alkaline Phosphatase 258 U/L (45-117); Aspartate Amino Transferase 23 U/L (0-37); Blood Urea Nitrogen 39 MG/DL (7-18); Potassium 4.2 MMOL/L (3.5-5.1); Sodium 128 MMOL/L (136-145); Total Protein 7.5 G/DL (6.4-8.3)
[2018-02-03 23:41] LABS: Troponin I Only < 0.015 NG/ML (0.00-0.045)
[2018-02-03 23:43] LABS: Glucose 646 MG/DL (74-106); Osmolality,Calculated 295.1 MOS/KG (273-304)
[2018-02-03] MEDS ORDERED: MAGNESIUM SULF RIDER 2 GM in PREMIX 1 EACH IV STA (23:44)
[2018-02-03] MEDS ORDERED: MAGNESIUM SULF RIDER 50 ML IV ONE (23:49)
[2018-02-04] MEDS ORDERED: INSULIN REGULAR 100 UNIT/ML IV STA (00:01)
[2018-02-04] MEDS ORDERED: GLUCAGON 1 MG VIAL IM PRN (03:20)
[2018-02-04] MEDS ORDERED: ONDANSETRON 4 MG/2 ML VIAL IV PRN (03:20)
[2018-02-04] MEDS ORDERED: DEXTROSE 50% 25 GM/50 ML VIAL IV PRN (03:20)
[2018-02-04] MEDS: SODIUM CHLORIDE 0.9% 1,000 ML IV SCH ×2 (04:00→14:05)
[2018-02-04 05:42] LABS: Basophils # 0.1 10*3/uL (0.0-0.2); Basophils % 0.6 % (0.0-0.8); Eosinophils # 0.2 10*3/uL (0.0-0.87); Eosinophils % 2.7 % (0.00-10.9); Hematocrit 25.9 VOL% (35.7-47.0); Hemoglobin 7.9 GM/DL (12.0-16.0); Immature Granulocytes % 0.1 %; Immature Granulocytes Absolute 0.01 #; Lymphocytes # 4.2 10*3/uL (1.4-4.0); Lymphocytes % 51.2 % (21.3-54.2); Mean Corpuscular HGB Conc 30.5 GM/DL (32-36); Mean Corpuscular Hemoglobin 23 PG (27-34); Mean Corpuscular Volume 74.6 FL (87-102); Monocytes # 0.6 10*3/uL (0.11-0.8); Monocytes % 7.3 % (1.7-12.7); Neutrophils # 3.1 10*3/uL (1.4-7.4); Neutrophils % 38.1 % (38.7-73.9); Platelet Count 211 T/CUMM (130-400); Red Blood Count 3.47 MC/CUMM (3.8-5.5); Red Cell Distribution Width 19.9 % (9.3-17.3); White Blood Count 8.1 T/CUMM (4-12)
[2018-02-04 05:59] LABS: Alanine Aminotransferase 15 U/L (13-56); Alkaline Phosphatase 203 U/L (45-117); Aspartate Amino Transferase 11 U/L (0-37); Bilirubin,Total < 0.39 MG/DL (0.2-1.0); Blood Urea Nitrogen 36 MG/DL (7-18); Calcium 8.4 MG/DL (8.5-10.1); Cholesterol 179 MG/DL (50-200); Glucose 432 MG/DL (74-106); HDL Cholesterol 29 MG/DL (40-60); Osmolality,Calculated 292.4 MOS/KG (273-304); Potassium 4.4 MMOL/L (3.5-5.1); Risk Ratio 6.17; Sodium 133 MMOL/L (136-145); Total Protein 6.6 G/DL (6.4-8.3); Triglycerides 881 MG/DL (2-150); VLDL CHOLESTEROL 176.2 MG/DL
[2018-02-04 06:00] LABS: Troponin I Only < 0.015 NG/ML (0.00-0.045)
[2018-02-04 06:03] LABS: Eosinophils 3 % (0-10); Lymphocytes 48 % (20-55); Segmented Neutrophils 45 % (50-85); Total Cells Counted 100
[2018-02-04 06:04] LABS: Giant Platelets Few; Hypochromasia 1+; Microcytosis Slight; Ovalocytes Slight; Platelet Estimate Adequate
[2018-02-04 08:14] LABS: % Iron Saturation 7.5 % (18-50); Ferritin 4.7 ng/ml (8-252)
[2018-02-04] MEDS ORDERED: PANTOPRAZOLE 40 MG VIAL IV SCH (09:00)
[2018-02-04] MEDS: INSULIN REGULAR 100 UNIT/ML SUBCUT SCH ×4 (09:58→21:08)
[2018-02-04] MEDS: DOCUSATE SODIUM 100 MG CAPSULE PO SCH ×2 (09:59→21:07)
[2018-02-04] MEDS ORDERED: LOSARTAN 50 MG TABLET PO SCH (19:46)
[2018-02-04] MEDS ORDERED: diphenhydrAMINE CAP 25 MG CAPSULE PO PRN (19:49)
[2018-02-04] MEDS ORDERED: VERAPAMIL SR 240 MG TABLET PO SCH (21:00)
[2018-02-05] MEDS: SODIUM CHLORIDE 0.9% 1,000 ML IV SCH ×2 (00:56→06:03)
[2018-02-05 06:49] LABS: Basophils # 0.1 10*3/uL (0.0-0.2); Basophils % 0.7 % (0.0-0.8); Eosinophils # 0.3 10*3/uL (0.0-0.87); Hematocrit 27.4 VOL% (35.7-47.0); Immature Granulocytes % 0.2 %; Immature Granulocytes Absolute 0.02 #; Lymphocytes # 4.5 10*3/uL (1.4-4.0); Lymphocytes % 53.3 % (21.3-54.2); Mean Corpuscular HGB Conc 29.2 GM/DL (32-36); Mean Corpuscular Hemoglobin 22 PG (27-34); Mean Corpuscular Volume 76.1 FL (87-102); Monocytes # 0.5 10*3/uL (0.11-0.8); Monocytes % 5.5 % (1.7-12.7); Neutrophils # 3.1 10*3/uL (1.4-7.4); Neutrophils % 37.3 % (38.7-73.9); Platelet Count 221 T/CUMM (130-400); White Blood Count 8.4 T/CUMM (4-12)
[2018-02-05 07:13] LABS: Eosinophils 5 % (0-10); Hypochromasia 2+; Lymphocytes 50 % (20-55); Segmented Neutrophils 41 % (50-85); Total Cells Counted 100
[2018-02-05 07:14] LABS: Microcytosis 1+; Ovalocytes Slight; Platelet Estimate Normal
[2018-02-05] MEDS ORDERED: diphenhydrAMINE CAP 25 MG CAPSULE PO PRN (07:21)
[2018-02-05] MEDS ORDERED: [UNRECOGNIZED DRUG - OTHER] SUBCUT PRN (07:21)
[2018-02-05] MEDS ORDERED: BUDESONIDE/FORMOTEROL 160-4.5 INHALER 6 GM INH PRN (07:21)
[2018-02-05] MEDS ORDERED: INSULIN REGULAR SUBCUT PRN (07:21)
[2018-02-05] MEDS ORDERED: traMADol 50 MG TABLET PO PRN (07:21)
[2018-02-05] MEDS ORDERED: ALBUTEROL 2.5 MG/3 ML NEB RESP TX PRN (07:30)
[2018-02-05 07:45] VITALS: BP 146/78
[2018-02-05] MEDS ORDERED: INSULIN REGULAR HUMAN SUBCUT SCH (08:00)
[2018-02-05] MEDS ORDERED: LEVOTHYROXINE 50 MCG TABLET PO SCH (09:00)
[2018-02-05] MEDS ORDERED: METHOCARBAMOL 750 MG TABLET PO SCH (09:00)
[2018-02-05] MEDS ORDERED: NON-FORMULARY MEDICATION (Pantoprazole Sodium [Protonix] 40 MG) PO SCH (09:00)
[2018-02-05] MEDS ORDERED: VERAPAMIL SR 240 MG TABLET PO SCH (09:00)
[2018-02-05] MEDS ORDERED: MULTIVITAMIN (CENTRUM) TABLET PO SCH (09:00)
[2018-02-05] MEDS ORDERED: VERAPAMIL HCL 240 MG PO SCH (09:00)
[2018-02-05] MEDS ORDERED: metFORMIN 500 MG TABLET PO SCH (09:00)
[2018-02-05] MEDS ORDERED: MAGNESIUM CHLORIDE 64 MG TABLET PO SCH (09:00)
[2018-02-05] MEDS ORDERED: LOSARTAN 50 MG TABLET PO SCH (09:00)
[2018-02-05] MEDS ORDERED: ATORVASTATIN 40 MG TABLET PO SCH (09:00)
[2018-02-05] MEDS ORDERED: ASPIRIN EC 81 MG TABLET PO SCH (09:00)
[2018-02-05] MEDS ORDERED: ESTRADIOL 1 MG TABLET PO SCH (09:00)
[2018-02-05] MEDS ORDERED: GABAPENTIN 300 MG CAPSULE PO SCH (09:00)
[2018-02-05] MEDS ORDERED: FUROSEMIDE 20 MG TABLET PO SCH (09:00)
[2018-02-05] MEDS ORDERED: cloNIDine 0.1 MG TABLET PO SCH ×2 (09:00)
[2018-02-05] MEDS ORDERED: [UNRECOGNIZED DRUG - OTHER] SUBCUT SCH (12:00)
[2018-02-05] MEDS ORDERED: INSULIN REGULAR SUBCUT SCH (12:00)
[2018-02-05] MEDS ORDERED: GABAPENTIN 600 MG TABLET PO SCH (21:00)
== END 2018-02-05 09:58 | disposition home or self-care (01) | DRG 420 ==
LOC: N.ED 21:14 → N.EDINP 02-04 02:08 → N.2E 02-04 03:02
PROVIDERS: ADMIT Family Medicine; ATTEND Family Medicine

== ENCOUNTER 2018-08-25 16:16 | Inpatient (IN) ==
[2018-08-25] MEDS ORDERED: ONDANSETRON 4 MG/2 ML VIAL IV PRN (16:22)
[2018-08-25] MEDS ORDERED: SODIUM CHLORIDE 0.9% 1,000 ML IV PRN (16:22)
[2018-08-25] MEDS ORDERED: GLUCAGON 1 MG VIAL IM PRN (16:29)
[2018-08-25] MEDS ORDERED: DEXTROSE 50% 25 GM/50 ML VIAL IV PRN (16:29)
[2018-08-25] MEDS ORDERED: INSULIN LISPRO 100 UNIT/ML SUBCUT SCH (16:30)
[2018-08-25 17:33] LABS: Basophils % 0.1 % (0.0-0.8); Eosinophils # 0.2 10*3/uL (0.0-0.87); Eosinophils % 2.1 % (0.00-10.9); Immature Granulocytes % 0.3 %; Immature Granulocytes Absolute 0.03 #; Lymphocytes # 4.9 10*3/uL (1.4-4.0); Lymphocytes % 45.3 % (21.3-54.2); Mean Corpuscular HGB Conc 27.2 GM/DL (32-36); Mean Corpuscular Hemoglobin 19 PG (27-34); Mean Corpuscular Volume 71.2 FL (87-102); Mean Platelet Volume 11.8 FL (9.6-12.0); Monocytes # 0.7 10*3/uL (0.11-0.8); Monocytes % 6.4 % (1.7-12.7); NRBC # 0.06 10*3/uL; Neutrophils % 45.8 % (38.7-73.9); Platelet Count 329 T/CUMM (130-400); Red Blood Count 2.22 MC/CUMM (3.8-5.5); Red Cell Distribution Width 19.9 % (9.3-17.3); White Blood Count 10.9 T/CUMM (4-12)
[2018-08-25 17:40] LABS: PT Patient Result 10.8 SECS; Partial Thromboplastin Time 23.8 SECS (0-40)
[2018-08-25] MEDS: SODIUM CHLORIDE 0.9% 1,000 ML IV SCH (17:46)
[2018-08-25 17:47] LABS: Alanine Aminotransferase 16 U/L (13-56); Albumin 3.8 G/DL (3.4-5.0); Alkaline Phosphatase 94 U/L (45-117); Aspartate Amino Transferase 11 U/L (0-37); Bilirubin,Total < 0.39 MG/DL (0.2-1.0); Blood Urea Nitrogen 47 MG/DL (7-18); Calcium 9.3 MG/DL (8.5-10.1); Glucose 93 MG/DL (74-106); Osmolality,Calculated 290.4 MOS/KG (273-304); Potassium 3.7 MMOL/L (3.5-5.1); Sodium 140 MMOL/L (136-145); Total Protein 8.2 G/DL (6.4-8.3)
[2018-08-25 17:53] LABS: Hematocrit 15.8 VOL% (35.7-47.0); Hemoglobin 4.3 GM/DL (12.0-16.0)
[2018-08-25] MEDS ORDERED: BUDESONIDE/FORMOTEROL 160-4.5 INHALER 6 GM INH PRN (17:53)
[2018-08-25] MEDS ORDERED: ALBUTEROL 2.5 MG/3 ML NEB RESP TX PRN (17:53)
[2018-08-25] MEDS ORDERED: DIPHENHYDRAMINE 25 MG PO PRN (17:53)
[2018-08-25 17:56] LABS: Folate > 24.0 NG/ML (5.4-24.0); Vitamin B12 448 PG/ML (211-911)
[2018-08-25 18:41] LABS: % Iron Saturation 2.3 % (18-50)
[2018-08-25 20:54] LABS: Apearance,Urine CLEAR (Clear); Bacteria,Urine Occasional /HPF (Few); Bilirubin,Urine Negative (Negative); Blood, Urine Negative (Negative); Glucose,Urine (UA) Negative (Negative); Ketones,Urine Negative (Negative); Mucus,Urine Occasional /LPF (Occasional); Nitrite,Urine Negative (Negative); Protein,Urine 100 MG/DL; RBC,Urine <1 /HPF (0-4); Squamous Epithelial Cell,Urine Occasional /HPF (0-10); Urine Color Straw (Yellow); Urine Specific Gravity 1.009 (1.001-1.035); Urine Urobilinogen < 2.0 EU/DL (0.2-1.0); WBC,Urine 1 /HPF (0-6)
[2018-08-25] MEDS: GABAPENTIN 600 MG TABLET PO SCH (21:11)
[2018-08-25] MEDS: PANTOPRAZOLE 40 MG VIAL IV SCH (21:12)
[2018-08-25] MEDS: cloNIDine 0.1 MG TABLET PO SCH (21:12)
[2018-08-25] MEDS: DOCUSATE SODIUM 100 MG CAPSULE PO SCH (21:12)
[2018-08-26] MEDS: SODIUM CHLORIDE 0.9% 1,000 ML IV SCH ×3 (01:51→18:40)
[2018-08-26] MEDS: LEVOTHYROXINE 50 MCG TABLET PO SCH (06:18)
[2018-08-26 06:46] LABS: Basophils # 0.1 10*3/uL (0.0-0.2); Basophils % 0.8 % (0.0-0.8); Eosinophils # 0.2 10*3/uL (0.0-0.87); Eosinophils % 2.1 % (0.00-10.9); Hematocrit 25.9 VOL% (35.7-47.0); Immature Granulocytes % 0.3 %; Immature Granulocytes Absolute 0.03 #; Lymphocytes # 4.3 10*3/uL (1.4-4.0); Lymphocytes % 47.1 % (21.3-54.2); Mean Corpuscular HGB Conc 29.3 GM/DL (32-36); Mean Corpuscular Hemoglobin 23 PG (27-34); Mean Corpuscular Volume 77.8 FL (87-102); Mean Platelet Volume 11.1 FL (9.6-12.0); Monocytes # 0.7 10*3/uL (0.11-0.8); Monocytes % 7.2 % (1.7-12.7); NRBC # 0.04 10*3/uL; Neutrophils # 3.9 10*3/uL (1.4-7.4); Neutrophils % 42.5 % (38.7-73.9); Red Cell Distribution Width 20.4 % (9.3-17.3); White Blood Count 9.1 T/CUMM (4-12)
[2018-08-26 06:54] LABS: Hemoglobin 7.6 GM/DL (12.0-16.0); Red Blood Count 3.33 MC/CUMM (3.8-5.5)
[2018-08-26 06:55] LABS: Platelet Count 251 T/CUMM (130-400)
[2018-08-26] MEDS: cloNIDine 0.1 MG TABLET PO SCH ×3 (08:42→20:44)
[2018-08-26] MEDS: VERAPAMIL SR 240 MG TABLET PO SCH (08:42)
[2018-08-26] MEDS: LOSARTAN 50 MG TABLET PO SCH (08:42)
[2018-08-26] MEDS: DOCUSATE SODIUM 100 MG CAPSULE PO SCH ×2 (08:42→20:44)
[2018-08-26] MEDS: ATORVASTATIN 40 MG TABLET PO SCH (08:43)
[2018-08-26] MEDS: GABAPENTIN 300 MG CAPSULE PO SCH ×2 (08:43→14:13)
[2018-08-26] MEDS: traZODone 50 MG TABLET PO SCH (08:43)
[2018-08-26] MEDS: ESTRADIOL 1 MG TABLET PO SCH (08:43)
[2018-08-26] MEDS: FUROSEMIDE 40 MG TABLET PO SCH (08:43)
[2018-08-26] MEDS: PANTOPRAZOLE 40 MG VIAL IV SCH ×2 (08:50→20:44)
[2018-08-26 10:33] LABS: Hemoglobin 7.5 GM/DL (12.0-16.0)
[2018-08-26 16:23] LABS: Hemoglobin 8.9 GM/DL (12.0-16.0)
[2018-08-26] MEDS: GABAPENTIN 600 MG TABLET PO SCH (20:44)
[2018-08-27] MEDS: SODIUM CHLORIDE 0.9% 1,000 ML IV SCH (02:45)
[2018-08-27] MEDS: LEVOTHYROXINE 50 MCG TABLET PO SCH (06:43)
[2018-08-27] MEDS ORDERED: traMADol 50 MG TABLET PO PRN (07:29)
[2018-08-27] MEDS ORDERED: hydrALAZINE 20 MG/1 ML VIAL IV PRN ×2 (07:32)
[2018-08-27] MEDS: INSULIN LISPRO 100 UNIT/ML SUBCUT SCH ×4 (08:54→21:04)
[2018-08-27] MEDS ORDERED: PROPOFOL 200 MG/20 ML VIAL IV ONE (10:00)
[2018-08-27] MEDS ORDERED: LIDOCAINE 100 MG/5 ML SYRINGE ONE (10:00)
[2018-08-27] MEDS: hydrALAZINE 20 MG/1 ML VIAL IV PRN (10:48)
[2018-08-27] MEDS ORDERED: DEXTROSE 50% 25 GM/50 ML VIAL IV PRN (13:54)
[2018-08-27] MEDS ORDERED: GLUCAGON 1 MG VIAL IM PRN (13:54)
[2018-08-27] MEDS: VERAPAMIL SR 240 MG TABLET PO SCH (13:59)
[2018-08-27] MEDS: traZODone 50 MG TABLET PO SCH (13:59)
[2018-08-27] MEDS: ESTRADIOL 1 MG TABLET PO SCH (13:59)
[2018-08-27] MEDS: DOCUSATE SODIUM 100 MG CAPSULE PO SCH ×2 (13:59→20:53)
[2018-08-27] MEDS: cloNIDine 0.1 MG TABLET PO SCH ×3 (13:59→20:53)
[2018-08-27] MEDS: FUROSEMIDE 40 MG TABLET PO SCH (14:00)
[2018-08-27] MEDS: ATORVASTATIN 40 MG TABLET PO SCH (14:00)
[2018-08-27] MEDS: GABAPENTIN 300 MG CAPSULE PO SCH ×2 (14:00→15:12)
[2018-08-27] MEDS: LOSARTAN 50 MG TABLET PO SCH (14:02)
[2018-08-27] MEDS: PANTOPRAZOLE 40 MG VIAL IV SCH ×2 (14:06→20:53)
[2018-08-27] MEDS ORDERED: MAGNESIUM CITRATE 300 ML BOTTLE PO ONE (14:27)
[2018-08-27] MEDS: GABAPENTIN 600 MG TABLET PO SCH (20:52)
[2018-08-28 07:31] LABS: Basophils % 0.5 % (0.0-0.8); Eosinophils # 0.2 10*3/uL (0.0-0.87); Hematocrit 28.3 VOL% (35.7-47.0); Hemoglobin 8.8 GM/DL (12.0-16.0); Immature Granulocytes % 0.3 %; Immature Granulocytes Absolute 0.02 #; Lymphocytes # 3.6 10*3/uL (1.4-4.0); Lymphocytes % 45.4 % (21.3-54.2); Mean Corpuscular HGB Conc 31.1 GM/DL (32-36); Mean Corpuscular Hemoglobin 24 PG (27-34); Mean Corpuscular Volume 77.3 FL (87-102); Mean Platelet Volume 11.3 FL (9.6-12.0); Monocytes # 0.7 10*3/uL (0.11-0.8); Monocytes % 8.6 % (1.7-12.7); NRBC # 0.02 10*3/uL; Neutrophils # 3.4 10*3/uL (1.4-7.4); Neutrophils % 43.2 % (38.7-73.9); Platelet Count 250 T/CUMM (130-400); Red Blood Count 3.66 MC/CUMM (3.8-5.5); Red Cell Distribution Width 20.5 % (9.3-17.3); White Blood Count 7.9 T/CUMM (4-12)
[2018-08-28] MEDS: cloNIDine 0.1 MG TABLET PO SCH ×3 (08:05→21:13)
[2018-08-28] MEDS: INSULIN LISPRO 100 UNIT/ML SUBCUT SCH ×4 (08:19→21:12)
[2018-08-28] MEDS: LEVOTHYROXINE 50 MCG TABLET PO SCH ×2 (08:19→13:28)
[2018-08-28] MEDS: GABAPENTIN 300 MG CAPSULE PO SCH ×3 (08:50→16:29)
[2018-08-28] MEDS: FUROSEMIDE 40 MG TABLET PO SCH (13:27)
[2018-08-28] MEDS: VERAPAMIL SR 240 MG TABLET PO SCH (13:27)
[2018-08-28] MEDS: LOSARTAN 50 MG TABLET PO SCH (13:27)
[2018-08-28] MEDS: ESTRADIOL 1 MG TABLET PO SCH (13:27)
[2018-08-28] MEDS: PANTOPRAZOLE 40 MG VIAL IV SCH ×2 (13:28→21:16)
[2018-08-28] MEDS: DOCUSATE SODIUM 100 MG CAPSULE PO SCH ×2 (13:28→21:13)
[2018-08-28] MEDS: traZODone 50 MG TABLET PO SCH (13:28)
[2018-08-28] MEDS: ATORVASTATIN 40 MG TABLET PO SCH (13:28)
[2018-08-28] MEDS: hydrALAZINE 20 MG/1 ML VIAL IV PRN (17:11)
[2018-08-28] MEDS: GABAPENTIN 600 MG TABLET PO SCH (21:13)
[2018-08-29 05:14] LABS: Basophils # 0.1 10*3/uL (0.0-0.2); Basophils % 0.6 % (0.0-0.8); Eosinophils # 0.2 10*3/uL (0.0-0.87); Eosinophils % 2.5 % (0.00-10.9); Hematocrit 29.4 VOL% (35.7-47.0); Hemoglobin 9.1 GM/DL (12.0-16.0); Immature Granulocytes % 0.2 %; Immature Granulocytes Absolute 0.02 #; Lymphocytes # 3.4 10*3/uL (1.4-4.0); Lymphocytes % 40.2 % (21.3-54.2); Mean Corpuscular Hemoglobin 24 PG (27-34); Mean Platelet Volume 12.4 FL (9.6-12.0); Monocytes # 0.6 10*3/uL (0.11-0.8); Monocytes % 6.7 % (1.7-12.7); Neutrophils # 4.2 10*3/uL (1.4-7.4); Neutrophils % 49.8 % (38.7-73.9); Platelet Count 274 T/CUMM (130-400); Red Blood Count 3.77 MC/CUMM (3.8-5.5); Red Cell Distribution Width 20.8 % (9.3-17.3); White Blood Count 8.4 T/CUMM (4-12)
[2018-08-29] MEDS: LEVOTHYROXINE 50 MCG TABLET PO SCH (06:10)
[2018-08-29] MEDS: INSULIN LISPRO 100 UNIT/ML SUBCUT SCH ×2 (08:00→12:10)
[2018-08-29] MEDS: DOCUSATE SODIUM 100 MG CAPSULE PO SCH (08:54)
[2018-08-29] MEDS: VERAPAMIL SR 240 MG TABLET PO SCH (08:54)
[2018-08-29] MEDS: cloNIDine 0.1 MG TABLET PO SCH (08:54)
[2018-08-29] MEDS: ATORVASTATIN 40 MG TABLET PO SCH (08:54)
[2018-08-29] MEDS: LOSARTAN 50 MG TABLET PO SCH (08:55)
[2018-08-29] MEDS: FUROSEMIDE 40 MG TABLET PO SCH (08:55)
[2018-08-29] MEDS: ESTRADIOL 1 MG TABLET PO SCH (08:55)
[2018-08-29] MEDS: traZODone 50 MG TABLET PO SCH (08:56)
[2018-08-29] MEDS: PANTOPRAZOLE 40 MG VIAL IV SCH (08:57)
[2018-08-29 12:21] VITALS: BP 163/76
== END 2018-08-29 14:17 | disposition home or self-care (01) | DRG 378 ==
LOC: N.2W 16:59 → N.TELES 18:02
PROVIDERS: ADMIT Family Medicine; ATTEND Family Medicine

== ENCOUNTER 2019-01-16 11:30 | Inpatient (IN) ==
[2019-01-16] MEDS ORDERED: ALBUTEROL/IPRATROPIUM 3 ML NEB RESP TX STA (11:47)
[2019-01-16 12:15] LABS: Basophils % 0.6 % (0.0-0.8); Eosinophils # 0.1 10*3/uL (0.0-0.87); Eosinophils % 1.6 % (0.00-10.9); Hematocrit 34.5 VOL% (35.7-47.0); Hemoglobin 10.5 GM/DL (12.0-16.0); Immature Granulocytes % 0.3 %; Immature Granulocytes Absolute 0.02 #; Lymphocytes # 1.2 10*3/uL (1.4-4.0); Lymphocytes % 17.9 % (21.3-54.2); Mean Corpuscular HGB Conc 30.4 GM/DL (32-36); Mean Corpuscular Hemoglobin 27 PG (27-34); Mean Corpuscular Volume 88.7 FL (87-102); Mean Platelet Volume 12.9 FL (9.6-12.0); Monocytes # 0.6 10*3/uL (0.11-0.8); Monocytes % 9.2 % (1.7-12.7); Neutrophils # 4.9 10*3/uL (1.4-7.4); Neutrophils % 70.4 % (38.7-73.9); Platelet Count 226 T/CUMM (130-400); Red Blood Count 3.89 MC/CUMM (3.8-5.5); Red Cell Distribution Width 15.9 % (9.3-17.3); White Blood Count 6.9 T/CUMM (4-12)
[2019-01-16 12:35] LABS: Calcium 9.8 MG/DL (8.5-10.1); Osmolality,Calculated 280.5 MOS/KG (273-304); Potassium 3.9 MMOL/L (3.5-5.1)
[2019-01-16] MEDS ORDERED: ALBUTEROL 2.5 MG/3 ML NEB RESP TX STA (13:24)
[2019-01-16] MEDS ORDERED: GLUCAGON 1 MG VIAL IM PRN (14:25)
[2019-01-16] MEDS ORDERED: ONDANSETRON 4 MG/2 ML VIAL IV PRN (14:25)
[2019-01-16] MEDS ORDERED: DEXTROSE 50% 25 GM/50 ML VIAL IV PRN (14:25)
[2019-01-16] MEDS ORDERED: ALBUTEROL/IPRATROPIUM 3 ML NEB RESP TX PRN (14:29)
[2019-01-16] MEDS ORDERED: NITROGLYCERIN SL 0.4 MG TABLET SL PRN (14:29)
[2019-01-16] MEDS ORDERED: ACETAMINOPHEN 500 MG TABLET ONE (14:37)
[2019-01-16] MEDS ORDERED: IBUPROFEN 600 MG TABLET PO STA (14:38)
[2019-01-16] MEDS ORDERED: IBUPROFEN 600 MG TABLET ONE (14:38)
[2019-01-16] MEDS ORDERED: IBUPROFEN 600 MG TABLET PO PRN (15:30)
[2019-01-16] MEDS: INSULIN LISPRO 100 UNIT/ML SUBCUT SCH ×2 (15:40→22:30)
[2019-01-16] MEDS: SODIUM CHLORIDE 0.45% 1,000 ML IV SCH (15:46)
[2019-01-16 16:36] LABS: Troponin I 0.077 NG/ML (0.00-0.045)
[2019-01-16 17:35] LABS: Troponin I 0.076 NG/ML (0.00-0.045)
[2019-01-16] MEDS: ALBUTEROL/IPRATROPIUM 3 ML NEB RESP TX SCH (19:21)
[2019-01-16 21:07] LABS: CKMB % 0.7 %
[2019-01-16 21:09] LABS: Troponin I 0.09 NG/ML (0.00-0.045)
[2019-01-16] MEDS: DOCUSATE SODIUM 100 MG CAPSULE PO SCH (21:32)
[2019-01-16] MEDS: OSELTAMIVIR 30 MG CAPSULE PO SCH (21:32)
[2019-01-16] MEDS: ENOXAPARIN 30 MG/0.3 ML SYRINGE SUBCUT SCH (21:32)
[2019-01-16 23:55] LABS: CKMB % 0.9 %
[2019-01-16 23:56] LABS: Troponin I 0.114 NG/ML (0.00-0.045)
[2019-01-17] MEDS: ALBUTEROL/IPRATROPIUM 3 ML NEB RESP TX SCH ×4 (00:30→19:44)
[2019-01-17] MEDS: PHENOL 1.4% THROAT SPRAY 177 ML BOTTLE PO SCH ×3 (00:40→15:42)
[2019-01-17] MEDS: SODIUM CHLORIDE 0.45% 1,000 ML IV SCH ×2 (04:42→22:02)
[2019-01-17] MEDS: PANTOPRAZOLE 40 MG TABLET PO SCH (10:31)
[2019-01-17] MEDS: OSELTAMIVIR 30 MG CAPSULE PO SCH ×2 (10:31→21:37)
[2019-01-17] MEDS: DOCUSATE SODIUM 100 MG CAPSULE PO SCH ×2 (10:31→21:37)
[2019-01-17] MEDS: ASPIRIN 325 MG TABLET PO SCH (10:31)
[2019-01-17] MEDS: INSULIN LISPRO 100 UNIT/ML SUBCUT SCH ×4 (10:32→21:37)
[2019-01-17] MEDS ORDERED: hydrOXYzine HCL 25 MG TABLET PO PRN (12:57)
[2019-01-17] MEDS ORDERED: POTASSIUM CHLORIDE 20 MEQ TABLET PO PRN (12:57)
[2019-01-17] MEDS ORDERED: ALBUTEROL 2.5 MG/3 ML NEB RESP TX PRN (15:00)
[2019-01-17] MEDS: GABAPENTIN 300 MG CAPSULE PO SCH (15:42)
[2019-01-17] MEDS: cloNIDine 0.1 MG TABLET PO SCH ×2 (15:42→21:37)
[2019-01-17] MEDS: hydrALAZINE 20 MG/1 ML VIAL IV PRN (16:40)
[2019-01-17 16:48] LABS: Basophils % 0.3 % (0.0-0.8); Eosinophils # 0.1 10*3/uL (0.0-0.87); Eosinophils % 1.5 % (0.00-10.9); Hematocrit 31.6 VOL% (35.7-47.0); Hemoglobin 9.7 GM/DL (12.0-16.0); Immature Granulocytes % 0.3 %; Immature Granulocytes Absolute 0.02 #; Lymphocytes # 2.2 10*3/uL (1.4-4.0); Lymphocytes % 37.7 % (21.3-54.2); Mean Corpuscular HGB Conc 30.7 GM/DL (32-36); Mean Corpuscular Hemoglobin 27 PG (27-34); Mean Corpuscular Volume 88.8 FL (87-102); Mean Platelet Volume 12.5 FL (9.6-12.0); Monocytes # 0.8 10*3/uL (0.11-0.8); Monocytes % 14.2 % (1.7-12.7); Neutrophils # 2.7 10*3/uL (1.4-7.4); Platelet Count 193 T/CUMM (130-400); Red Blood Count 3.56 MC/CUMM (3.8-5.5); Red Cell Distribution Width 15.7 % (9.3-17.3); White Blood Count 5.9 T/CUMM (4-12)
[2019-01-17 17:04] LABS: Calcium 8.9 MG/DL (8.5-10.1); Potassium 4.1 MMOL/L (3.5-5.1)
[2019-01-17 20:43] LABS: Apearance,Urine CLEAR (Clear); Bilirubin,Urine Negative (Negative); Blood, Urine Negative (Negative); Glucose,Urine (UA) 150 mg/dL (Negative); Ketones,Urine Negative (Negative); Nitrite,Urine Negative (Negative); Protein,Urine >=500 MG/DL; Urine Color Straw (Yellow); Urine Specific Gravity 1.011 (1.001-1.035); Urine Urobilinogen < 2.0 EU/DL (0.2-1.0); WBC,Urine 1 /HPF (0-6)
[2019-01-17] MEDS: INSULIN GLARGINE 100 UNIT/ML SUBCUT SCH (21:37)
[2019-01-17] MEDS: ENOXAPARIN 30 MG/0.3 ML SYRINGE SUBCUT SCH (21:38)
[2019-01-17] MEDS: INSULIN REGULAR ** CONC 500 UNIT/ML ** 20 ML VIAL SUBCUT SCH (22:44)
[2019-01-18] MEDS: PHENOL 1.4% THROAT SPRAY 177 ML BOTTLE PO SCH ×3 (00:34→17:05)
[2019-01-18] MEDS: ALBUTEROL/IPRATROPIUM 3 ML NEB RESP TX SCH ×4 (01:56→19:07)
[2019-01-18 05:26] LABS: Basophils % 0.4 % (0.0-0.8); Eosinophils # 0.1 10*3/uL (0.0-0.87); Eosinophils % 1.6 % (0.00-10.9); Hematocrit 31.2 VOL% (35.7-47.0); Hemoglobin 9.5 GM/DL (12.0-16.0); Immature Granulocytes % 0.2 %; Immature Granulocytes Absolute 0.01 #; Lymphocytes # 2.4 10*3/uL (1.4-4.0); Lymphocytes % 46.8 % (21.3-54.2); Mean Corpuscular HGB Conc 30.4 GM/DL (32-36); Mean Corpuscular Hemoglobin 27 PG (27-34); Mean Corpuscular Volume 89.7 FL (87-102); Mean Platelet Volume 13.8 FL (9.6-12.0); Monocytes # 0.6 10*3/uL (0.11-0.8); Monocytes % 11.2 % (1.7-12.7); Neutrophils % 39.8 % (38.7-73.9); Platelet Count 196 T/CUMM (130-400); Red Blood Count 3.48 MC/CUMM (3.8-5.5); Red Cell Distribution Width 15.8 % (9.3-17.3); White Blood Count 5.1 T/CUMM (4-12)
[2019-01-18 05:47] LABS: Calcium 8.8 MG/DL (8.5-10.1); Osmolality,Calculated 289.8 MOS/KG (273-304); Potassium 4.2 MMOL/L (3.5-5.1); Thyroid Stimulating Hormone 4.03 uIU/ml (0.358-3.74)
[2019-01-18] MEDS: LEVOTHYROXINE 50 MCG TABLET PO SCH (06:18)
[2019-01-18] MEDS ORDERED: INSULIN REGULAR 100 UNIT/ML SUBCUT SCH ×2 (07:30)
[2019-01-18] MEDS ORDERED: INSULIN REGULAR ** CONC 500 UNIT/ML ** 20 ML VIAL SUBCUT SCH (08:00)
[2019-01-18] MEDS ORDERED: NON-FORMULARY MEDICATION (Pantoprazole Sodium [Protonix] 40 MG) PO SCH (09:00)
[2019-01-18] MEDS ORDERED: MAGNESIUM SULF RIDER 2 GM in PREMIX 1 EACH IV PRN (09:34)
[2019-01-18] MEDS ORDERED: MAGNESIUM SULF RIDER 4 GM in PREMIX 1 EACH IV PRN (09:34)
[2019-01-18] MEDS: cloNIDine 0.1 MG TABLET PO SCH ×3 (11:24→22:47)
[2019-01-18] MEDS: ASPIRIN 325 MG TABLET PO SCH (11:24)
[2019-01-18] MEDS: GLIMEPIRIDE 2 MG TABLET PO SCH (11:24)
[2019-01-18] MEDS: GABAPENTIN 300 MG CAPSULE PO SCH ×2 (11:24→15:25)
[2019-01-18] MEDS: FUROSEMIDE 40 MG TABLET PO SCH (11:24)
[2019-01-18] MEDS: DOCUSATE SODIUM 100 MG CAPSULE PO SCH ×2 (11:24→22:47)
[2019-01-18] MEDS: OSELTAMIVIR 30 MG CAPSULE PO SCH ×2 (11:24→22:47)
[2019-01-18] MEDS: PANTOPRAZOLE 40 MG TABLET PO SCH (11:24)
[2019-01-18] MEDS: FLUTICASONE 50 MCG NASAL SPRAY 16 GM BOTTLE BOTH NARES SCH (11:25)
[2019-01-18] MEDS: ATORVASTATIN 40 MG TABLET PO SCH (11:25)
[2019-01-18] MEDS: INSULIN LISPRO 100 UNIT/ML SUBCUT SCH ×4 (11:28→22:49)
[2019-01-18] MEDS: SODIUM CHLORIDE 0.45% 1,000 ML IV SCH (11:30)
[2019-01-18] MEDS: hydrALAZINE 20 MG/1 ML VIAL IV PRN (12:12)
[2019-01-18] MEDS: INSULIN REGULAR ** CONC 500 UNIT/ML ** 20 ML VIAL SUBCUT SCH ×2 (12:36→17:05)
[2019-01-18] MEDS: ENOXAPARIN 30 MG/0.3 ML SYRINGE SUBCUT SCH (22:48)
[2019-01-18] MEDS: INSULIN GLARGINE 100 UNIT/ML SUBCUT SCH (22:48)
[2019-01-18] MEDS: BUDESONIDE/FORMOTEROL 160-4.5 INHALER 6 GM INH PRN (22:59)
[2019-01-19] MEDS: ALBUTEROL/IPRATROPIUM 3 ML NEB RESP TX SCH ×4 (00:48→21:50)
[2019-01-19] MEDS: PHENOL 1.4% THROAT SPRAY 177 ML BOTTLE PO SCH ×3 (01:43→15:41)
[2019-01-19] MEDS: SODIUM CHLORIDE 0.45% 1,000 ML IV SCH ×3 (05:03→18:47)
[2019-01-19 05:15] LABS: Basophils % 0.4 % (0.0-0.8); Eosinophils # 0.2 10*3/uL (0.0-0.87); Eosinophils % 3.4 % (0.00-10.9); Hematocrit 30.3 VOL% (35.7-47.0); Hemoglobin 9.1 GM/DL (12.0-16.0); Lymphocytes # 2.4 10*3/uL (1.4-4.0); Lymphocytes % 51.7 % (21.3-54.2); Mean Corpuscular Hemoglobin 27 PG (27-34); Mean Corpuscular Volume 89.6 FL (87-102); Mean Platelet Volume 13.8 FL (9.6-12.0); Monocytes # 0.4 10*3/uL (0.11-0.8); Monocytes % 8.1 % (1.7-12.7); Neutrophils # 1.7 10*3/uL (1.4-7.4); Neutrophils % 36.4 % (38.7-73.9); Platelet Count 188 T/CUMM (130-400); Red Blood Count 3.38 MC/CUMM (3.8-5.5); Red Cell Distribution Width 15.8 % (9.3-17.3); White Blood Count 4.7 T/CUMM (4-12)
[2019-01-19 05:43] LABS: Calcium 8.8 MG/DL (8.5-10.1); Osmolality,Calculated 290.1 MOS/KG (273-304); Potassium 4.2 MMOL/L (3.5-5.1)
[2019-01-19 06:05] LABS: Eosinophils 2 % (0-10); Hypochromasia 1+; Lymphocytes 49 % (20-55); Ovalocytes Slight; Platelet Estimate Adequate; Segmented Neutrophils 43 % (50-85); Total Cells Counted 100
[2019-01-19] MEDS: LEVOTHYROXINE 50 MCG TABLET PO SCH (06:18)
[2019-01-19] MEDS: INSULIN LISPRO 100 UNIT/ML SUBCUT SCH ×4 (08:31→22:43)
[2019-01-19] MEDS: HUMULIN N U SUBCUT SCH (08:31)
[2019-01-19] MEDS: ATORVASTATIN 40 MG TABLET PO SCH (08:32)
[2019-01-19] MEDS: GABAPENTIN 300 MG CAPSULE PO SCH ×2 (08:32→15:04)
[2019-01-19] MEDS: ASPIRIN 325 MG TABLET PO SCH (08:32)
[2019-01-19] MEDS: GLIMEPIRIDE 2 MG TABLET PO SCH (08:32)
[2019-01-19] MEDS: DOCUSATE SODIUM 100 MG CAPSULE PO SCH ×2 (08:32→23:05)
[2019-01-19] MEDS: cloNIDine 0.1 MG TABLET PO SCH ×3 (08:33→23:04)
[2019-01-19] MEDS: FLUTICASONE 50 MCG NASAL SPRAY 16 GM BOTTLE BOTH NARES SCH (08:33)
[2019-01-19] MEDS: OSELTAMIVIR 30 MG CAPSULE PO SCH ×2 (08:33→23:05)
[2019-01-19] MEDS: FUROSEMIDE 40 MG TABLET PO SCH (08:33)
[2019-01-19] MEDS: PANTOPRAZOLE 40 MG TABLET PO SCH (08:33)
[2019-01-19] MEDS: HUMULIN R U SUBCUT SCH ×2 (11:25→16:21)
[2019-01-19] MEDS: hydrALAZINE 20 MG/1 ML VIAL IV PRN (16:30)
[2019-01-19] MEDS: BUDESONIDE/FORMOTEROL 160-4.5 INHALER 6 GM INH PRN (23:03)
[2019-01-19] MEDS: ENOXAPARIN 30 MG/0.3 ML SYRINGE SUBCUT SCH (23:06)
[2019-01-19] MEDS: INSULIN GLARGINE 100 UNIT/ML SUBCUT SCH (23:20)
[2019-01-20] MEDS: ALBUTEROL/IPRATROPIUM 3 ML NEB RESP TX SCH ×4 (00:16→20:21)
[2019-01-20] MEDS: PHENOL 1.4% THROAT SPRAY 177 ML BOTTLE PO SCH ×3 (01:33→16:31)
[2019-01-20] MEDS: LEVOTHYROXINE 50 MCG TABLET PO SCH (06:24)
[2019-01-20] MEDS: SODIUM CHLORIDE 0.45% 1,000 ML IV SCH ×3 (07:43→12:05)
[2019-01-20] MEDS: HUMULIN N U SUBCUT SCH (07:43)
[2019-01-20] MEDS: GLIMEPIRIDE 2 MG TABLET PO SCH (08:59)
[2019-01-20] MEDS: FUROSEMIDE 40 MG TABLET PO SCH (08:59)
[2019-01-20] MEDS: OSELTAMIVIR 30 MG CAPSULE PO SCH ×2 (08:59→20:43)
[2019-01-20] MEDS: ATORVASTATIN 40 MG TABLET PO SCH (08:59)
[2019-01-20] MEDS: ASPIRIN 325 MG TABLET PO SCH (08:59)
[2019-01-20] MEDS: cloNIDine 0.1 MG TABLET PO SCH ×3 (08:59→20:43)
[2019-01-20] MEDS: DOCUSATE SODIUM 100 MG CAPSULE PO SCH ×2 (08:59→20:43)
[2019-01-20] MEDS: INSULIN LISPRO 100 UNIT/ML SUBCUT SCH ×4 (08:59→21:23)
[2019-01-20] MEDS: GABAPENTIN 300 MG CAPSULE PO SCH ×2 (09:00→15:00)
[2019-01-20] MEDS: PANTOPRAZOLE 40 MG TABLET PO SCH (09:00)
[2019-01-20] MEDS: FLUTICASONE 50 MCG NASAL SPRAY 16 GM BOTTLE BOTH NARES SCH (09:10)
[2019-01-20] MEDS: HUMULIN R U SUBCUT SCH ×2 (12:05→16:42)
[2019-01-20] MEDS ORDERED: DEXTROMETHORPHAN ER 6 MG/ML 90 ML/BOTTLE PO PRN (15:07)
[2019-01-20] MEDS: ENOXAPARIN 30 MG/0.3 ML SYRINGE SUBCUT SCH (20:43)
[2019-01-20] MEDS: INSULIN GLARGINE 100 UNIT/ML SUBCUT SCH (21:20)
[2019-01-21] MEDS: SODIUM CHLORIDE 0.45% 1,000 ML IV SCH (00:01)
[2019-01-21] MEDS: ALBUTEROL/IPRATROPIUM 3 ML NEB RESP TX SCH ×2 (01:03→07:40)
[2019-01-21] MEDS: PHENOL 1.4% THROAT SPRAY 177 ML BOTTLE PO SCH ×2 (01:32→08:15)
[2019-01-21 04:59] LABS: Calcium 8.3 MG/DL (8.5-10.1); Osmolality,Calculated 298.8 MOS/KG (273-304); Potassium 4.2 MMOL/L (3.5-5.1)
[2019-01-21] MEDS: LEVOTHYROXINE 50 MCG TABLET PO SCH (06:12)
[2019-01-21 07:48] VITALS: BP 160/74
[2019-01-21] MEDS: HUMULIN N U SUBCUT SCH (08:06)
[2019-01-21] MEDS: INSULIN LISPRO 100 UNIT/ML SUBCUT SCH (08:06)
[2019-01-21] MEDS: ATORVASTATIN 40 MG TABLET PO SCH (08:10)
[2019-01-21] MEDS: ASPIRIN 325 MG TABLET PO SCH (08:10)
[2019-01-21] MEDS: GLIMEPIRIDE 2 MG TABLET PO SCH (08:10)
[2019-01-21] MEDS: OSELTAMIVIR 30 MG CAPSULE PO SCH (08:10)
[2019-01-21] MEDS: PANTOPRAZOLE 40 MG TABLET PO SCH (08:10)
[2019-01-21] MEDS: cloNIDine 0.1 MG TABLET PO SCH (08:10)
[2019-01-21] MEDS: GABAPENTIN 300 MG CAPSULE PO SCH (08:11)
[2019-01-21] MEDS: DOCUSATE SODIUM 100 MG CAPSULE PO SCH (08:11)
[2019-01-21] MEDS: FUROSEMIDE 40 MG TABLET PO SCH (08:11)
[2019-01-21] MEDS: FLUTICASONE 50 MCG NASAL SPRAY 16 GM BOTTLE BOTH NARES SCH (08:13)
== END 2019-01-21 10:35 | disposition home or self-care (01) | DRG 153 ==
LOC: N.ED 11:30 → N.EDINP 11:30 → N.2E 15:29
PROVIDERS: ADMIT Family Medicine; ATTEND Family Medicine

== ENCOUNTER 2019-07-29 15:34 | Observation (INO) ==
[2019-07-29 16:07] LABS: Basophils # 0.1 10*3/uL (0.0-0.2); Basophils % 0.6 % (0.0-0.8); Eosinophils # 0.2 10*3/uL (0.0-0.87); Eosinophils % 2.4 % (0.00-10.9); Hematocrit 30.3 VOL% (35.7-47.0); Hemoglobin 9.5 GM/DL (12.0-16.0); Immature Granulocytes % 0.4 %; Immature Granulocytes Absolute 0.04 #; Lymphocytes # 3.2 10*3/uL (1.4-4.0); Lymphocytes % 33.4 % (21.3-54.2); Mean Corpuscular HGB Conc 31.4 GM/DL (32-36); Mean Corpuscular Volume 90.2 FL (87-102); Mean Platelet Volume 12.9 FL (9.6-12.0); Monocytes % 6.7 % (1.7-12.7); Neutrophils % 56.5 % (38.7-73.9); Platelet Count 259 T/CUMM (130-400); Red Blood Count 3.36 MC/CUMM (3.8-5.5); Red Cell Distribution Width 15.8 % (9.3-17.3); White Blood Count 9.6 T/CUMM (4-12)
[2019-07-29 16:19] LABS: PT Patient Result 10.5 SECS (9.6-12.2)
[2019-07-29] MEDS ORDERED: ALBUTEROL/IPRATROPIUM 3 ML NEB RESP TX STA (16:28)
[2019-07-29] MEDS ORDERED: ONDANSETRON 4 MG/2 ML VIAL IV STA (16:28)
[2019-07-29 16:42] LABS: Alanine Aminotransferase 55 U/L (13-56); Albumin 3.8 G/DL (3.4-5.0); Alkaline Phosphatase 296 U/L (45-117); Aspartate Amino Transferase 50 U/L (0-37); Bilirubin,Total < 0.39 MG/DL (0.2-1.0); Blood Urea Nitrogen 61 MG/DL (7-18); Calcium 9.5 MG/DL (8.5-10.1); Glucose 197 MG/DL (74-106); Osmolality,Calculated 296.7 MOS/KG (273-304)
[2019-07-29 17:04] LABS: Apearance,Urine CLEAR (Clear); Bacteria,Urine Occasional /HPF (Few); Bilirubin,Urine Negative (Negative); Blood, Urine Negative (Negative); Glucose,Urine (UA) Negative (Negative); Ketones,Urine Negative (Negative); Mucus,Urine Occasional /LPF (Occasional); Nitrite,Urine Negative (Negative); Protein,Urine >=500 MG/DL; RBC,Urine 3 /HPF (0-4); Squamous Epithelial Cell,Urine Occasional /HPF (0-10); Urine Color Straw (Yellow); Urine Specific Gravity 1.009 (1.001-1.035); Urine Urobilinogen < 2.0 EU/DL (0.2-1.0); WBC,Urine <1 /HPF (0-6)
[2019-07-29 17:10] LABS: Barbiturates Screen,Urine Negative (Negative); Benzodiazepines Screen,Urine Negative (Negative); Cannabinoid Screen,Urine Negative (Negative); Opiate Screen,Urine Negative (Negative); Phencyclidine Screen,Urine Negative (Negative)
[2019-07-29] MEDS ORDERED: DEXTROSE 10% 250 ML BAG IV PRN ×2 (18:08→18:39)
[2019-07-29] MEDS ORDERED: GLUCAGON 1 MG VIAL IM PRN (18:08)
[2019-07-29] MEDS ORDERED: ONDANSETRON 4 MG/2 ML VIAL IV PRN (18:36)
[2019-07-29] MEDS ORDERED: hydrALAZINE 20 MG/1 ML VIAL IV PRN (20:07)
[2019-07-29 20:49] LABS: Hematocrit 29.4 VOL% (35.7-47.0); Hemoglobin 9.1 GM/DL (12.0-16.0)
[2019-07-29] MEDS: SODIUM CHLORIDE 0.9% 1,000 ML IV SCH (21:35)
[2019-07-29] MEDS: INSULIN LISPRO 100 UNIT/ML SUBCUT SCH (23:20)
[2019-07-30 03:23] LABS: Basophils % 0.5 % (0.0-0.8); Eosinophils # 0.2 10*3/uL (0.0-0.87); Eosinophils % 2.7 % (0.00-10.9); Hematocrit 28.5 VOL% (35.7-47.0); Hemoglobin 8.8 GM/DL (12.0-16.0); Immature Granulocytes % 0.3 %; Immature Granulocytes Absolute 0.02 #; Lymphocytes # 2.8 10*3/uL (1.4-4.0); Lymphocytes % 37.7 % (21.3-54.2); Mean Corpuscular HGB Conc 30.9 GM/DL (32-36); Mean Corpuscular Volume 91.6 FL (87-102); Mean Platelet Volume 12.5 FL (9.6-12.0); Monocytes % 9.9 % (1.7-12.7); Neutrophils % 48.9 % (38.7-73.9); Platelet Count 246 T/CUMM (130-400); Red Blood Count 3.11 MC/CUMM (3.8-5.5); Red Cell Distribution Width 16.1 % (9.3-17.3); White Blood Count 7.5 T/CUMM (4-12)
[2019-07-30 03:56] LABS: Alanine Aminotransferase 48 U/L (13-56); Albumin 3.2 G/DL (3.4-5.0); Alkaline Phosphatase 250 U/L (45-117); Aspartate Amino Transferase 41 U/L (0-37); Bilirubin,Total < 0.39 MG/DL (0.2-1.0); Blood Urea Nitrogen 54 MG/DL (7-18); Glucose 212 MG/DL (74-106); HDL Cholesterol 34 MG/DL (40-60); Osmolality,Calculated 295.7 MOS/KG (273-304); Risk Ratio 4.26; Total Protein 7.5 G/DL (6.4-8.3); Triglycerides 287 MG/DL (2-150); VLDL CHOLESTEROL 57.4 MG/DL
[2019-07-30] MEDS ORDERED: FAMOTIDINE 20 MG/2 ML VIAL IV SCH (09:00)
[2019-07-30] MEDS: INSULIN LISPRO 100 UNIT/ML SUBCUT SCH ×4 (09:11→21:07)
[2019-07-30] MEDS: SODIUM CHLORIDE 0.9% 1,000 ML IV SCH ×2 (09:21→21:05)
[2019-07-30 10:25] LABS: Hematocrit 29.9 VOL% (35.7-47.0); Hemoglobin 9.2 GM/DL (12.0-16.0)
[2019-07-30] MEDS ORDERED: INSULIN GLARGINE 100 UNIT/ML SUBCUT SCH (21:00)
[2019-07-30] MEDS: cloNIDine 0.1 MG TABLET PO SCH (21:05)
[2019-07-30] MEDS: ACETAMINOPHEN 325 MG TABLET PO PRN (21:06)
[2019-07-30] MEDS: PANTOPRAZOLE 40 MG TABLET PO SCH (21:06)
[2019-07-31 05:31] LABS: Basophils # 0.1 10*3/uL (0.0-0.2); Basophils % 1.1 % (0.0-0.8); Eosinophils # 0.2 10*3/uL (0.0-0.87); Eosinophils % 3.4 % (0.00-10.9); Hematocrit 28.5 VOL% (35.7-47.0); Hemoglobin 8.5 GM/DL (12.0-16.0); Immature Granulocytes % 0.2 %; Immature Granulocytes Absolute 0.01 #; Lymphocytes # 2.6 10*3/uL (1.4-4.0); Lymphocytes % 46.7 % (21.3-54.2); Mean Corpuscular HGB Conc 29.8 GM/DL (32-36); Mean Corpuscular Volume 92.8 FL (87-102); Mean Platelet Volume 13.4 FL (9.6-12.0); Monocytes % 9.7 % (1.7-12.7); Neutrophils % 38.9 % (38.7-73.9); Platelet Count 248 T/CUMM (130-400); Red Blood Count 3.07 MC/CUMM (3.8-5.5); White Blood Count 5.6 T/CUMM (4-12)
[2019-07-31 05:47] LABS: Alanine Aminotransferase 46 U/L (13-56); Alkaline Phosphatase 225 U/L (45-117); Aspartate Amino Transferase 42 U/L (0-37); Bilirubin,Total < 0.39 MG/DL (0.2-1.0); Blood Urea Nitrogen 38 MG/DL (7-18); Glucose 172 MG/DL (74-106); Osmolality,Calculated 291.4 MOS/KG (273-304); Total Protein 7.2 G/DL (6.4-8.3)
[2019-07-31] MEDS ORDERED: LEVOTHYROXINE 50 MCG TABLET PO SCH (07:00)
[2019-07-31] MEDS ORDERED: GLIMEPIRIDE 2 MG TABLET PO SCH (07:30)
[2019-07-31] MEDS: INSULIN LISPRO 100 UNIT/ML SUBCUT SCH ×2 (07:59→12:12)
[2019-07-31] MEDS ORDERED: INSULIN REGULAR ** CONC 500 UNIT/ML ** 20 ML VIAL SUBCUT SCH ×3 (08:00→17:00)
[2019-07-31] MEDS: ACETAMINOPHEN 325 MG TABLET PO PRN (08:27)
[2019-07-31] MEDS: cloNIDine 0.1 MG TABLET PO SCH (09:14)
[2019-07-31] MEDS: PANTOPRAZOLE 40 MG TABLET PO SCH (09:15)
[2019-07-31] MEDS: SODIUM CHLORIDE 0.9% 1,000 ML IV SCH (09:16)
[2019-07-31 12:03] VITALS: BP 168/88
[2019-07-31] MEDS ORDERED: diphenhydrAMINE CAP 25 MG CAPSULE PO PRN (13:06)
[2019-08-05 22:36] LABS: IgA Serum (MAYO) 105 mg/dL (61 - 356)
[2019-08-11 14:11] LABS: Tissue Transglutaminase IgA Ab < 1.2 U/mL
== END 2019-07-31 15:40 | disposition home or self-care (01) ==
LOC: N.ED 15:34 → N.EDINP 15:34 → N.TELES 19:15
PROVIDERS: ADMIT Hospitalist; ATTEND Hospitalist

== ENCOUNTER 2022-08-13 13:23 | Inpatient (IN) ==
[2022-08-13 17:13] LABS: Bilirubin,Urine Small mg/dL (Negative); Blood, Urine Large mg/dL (Negative); Glucose,Urine (UA) Negative (Negative); Ketones,Urine Negative (Negative); Nitrite,Urine Negative (Negative); Protein,Urine >=300 mg/dL (Negative); Urine Appearance Cloudy (Clear); Urine Color Brown (Yellow); Urine Specific Gravity 1.025 (1.001-1.035); Urine Urobilinogen 0.2 eU/dL (<2.0); Urine pH 5.5 (4.5-8.0)
[2022-08-13 17:14] LABS: Basophils % 0.2 % (0.0-0.8); Eosinophils # 0.1 10*3/uL (0.0-0.87); Eosinophils % 0.6 % (0.00-10.9); Hematocrit 32.9 VOL% (35.7-47.0); Hemoglobin 10.2 GM/DL (12.0-16.0); Immature Granulocytes % 0.7 %; Immature Granulocytes Absolute 0.07 #; Lymphocytes # 1.6 10*3/uL (1.4-4.0); Lymphocytes % 17.3 % (21.3-54.2); Mean Corpuscular Volume 92.4 FL (87-102); Mean Platelet Volume 12.8 FL (9.6-12.0); Monocytes # 0.6 10*3/uL (0.11-0.8); Monocytes % 6.3 % (1.7-12.7); Neutrophils % 74.9 % (38.7-73.9); Platelet Count 248 T/CUMM (130-400); Red Blood Count 3.56 MC/CUMM (3.8-5.5); Red Cell Distribution Width 14.8 % (9.3-17.3); White Blood Count 9.4 T/CUMM (4-12)
[2022-08-13 17:15] LABS: Bacteria,Urine Many /HPF (Few); RBC,Urine 7 /HPF (0-4); Squamous Epithelial Cell,Urine Many /HPF (0-10)
[2022-08-13] MEDS ORDERED: cefTRIAXone 1,000 MG in SODIUM CHLORIDE 0.9% 100 ML IV STA (17:44)
[2022-08-13 18:32] LABS: Sodium 131 MMOL/L (136-145)
[2022-08-13 18:34] LABS: Calcium 8.9 MG/DL (8.5-10.1); Chloride 103 MMOL/L (98-107)
[2022-08-13 18:35] LABS: Albumin 2.4 G/DL (3.4-5.0); Blood Urea Nitrogen 125 MG/DL (7-18); Carbon Dioxide 14 MMOL/L (21-32); Glucose 188 MG/DL (74-106); Osmolality,Calculated 306.7 MOS/KG (273-304)
[2022-08-13 18:39] LABS: Alanine Aminotransferase 258 U/L (13-56); Aspartate Amino Transferase 655 U/L (0-37)
[2022-08-13 18:40] LABS: Bilirubin,Total < 0.39 MG/DL (0.20-1.00); Total Protein 7.3 G/DL (6.4-8.2)
[2022-08-13 18:42] LABS: Alkaline Phosphatase 150 U/L (45-117)
[2022-08-13 18:44] LABS: Potassium 8.6 MMOL/L (3.5-5.1)
[2022-08-13] MEDS ORDERED: SODIUM BICARBONATE 50 MEQ/50 ML VIAL IV STA (18:53)
[2022-08-13] MEDS ORDERED: INSULIN REGULAR 10 UNIT, CALCIUM GLUCONATE 1,000 MG in DEXTROSE 10% 250 ML IV ONE (18:53)
[2022-08-13] MEDS ORDERED: CALCIUM GLUCONATE RIDER 1,000 MG/50 ML PREMIX IV ONE ×2 (19:00→19:07)
[2022-08-13] MEDS ORDERED: DEXTROSE 50% 25 GM/50 ML SYRINGE IV ONE (19:00)
[2022-08-13] MEDS ORDERED: INSULIN REGULAR 100 UNIT/ML ONE (19:01)
[2022-08-13] MEDS ORDERED: DEXTROSE 50% 25 GM/50 ML VIAL IV STA (19:07)
[2022-08-13] MEDS ORDERED: INSULIN REGULAR 100 UNIT/ML IV STA (19:07)
[2022-08-13 19:11] LABS: Arterial Base Excess iSTAT -14 MMOL/L (-2.5-2.5); Arterial O2 Saturation iSTAT 91 % (95-100); Arterial PCO2 iSTAT 55 MM HG (35-48); Arterial PO2 iSTAT 87 MM HG (80-95); Arterial Total CO2 iSTAT 18 MMO/L (23-27); Arterial pH iSTAT 7.073 (7.35-7.45)
[2022-08-13] MEDS ORDERED: VECURONIUM 10 MG VIAL IV STA (19:17)
[2022-08-13] MEDS ORDERED: ETOMIDATE 20 MG/10 ML VIAL IV STA (19:17)
[2022-08-13] MEDS ORDERED: ALBUTEROL 2.5 MG/3 ML NEB RESP TX PRN (19:32)
[2022-08-13] MEDS ORDERED: ONDANSETRON 4 MG/2 ML VIAL IV PRN (19:34)
[2022-08-13] MEDS ORDERED: GLUCAGON 1 MG VIAL IM PRN (19:37)
[2022-08-13] MEDS: MIDAZOLAM 100 MG in SODIUM CHLORIDE 0.9% 80 ML IV PRN (20:30)
[2022-08-13 21:02] LABS: Hepatitis B Core IgM Quant 0.14 Index; Hepatitis B Surface Ag Quant < 0.10 Index; Hepatitis B Surface Ag Result Non-Reactive (NonReactive); Hepatitis C Virus Ab Quant < 0.02 Index; Hepatitis C Virus Ab Result Non-Reactive (NonReactive)
[2022-08-13 21:20] LABS: Arterial Base Excess iSTAT -11 MMOL/L (-2.5-2.5); Arterial Bicarbonate iSTAT 16.2 MMOL/L (20-26); Arterial O2 Saturation iSTAT 96 % (95-100); Arterial PCO2 iSTAT 39 MM HG (35-48); Arterial PO2 iSTAT 100 MM HG (80-95); Arterial Total CO2 iSTAT 17 MMO/L (23-27); Arterial pH iSTAT 7.226 (7.35-7.45)
[2022-08-13] MEDS: FAMOTIDINE 20 MG/2 ML VIAL IV SCH (22:03)
[2022-08-13 23:55] LABS: Calcium 8.6 MG/DL (8.5-10.1); Osmolality,Calculated 287.7 MOS/KG (273-304); Potassium 3.3 MMOL/L (3.5-5.1)
[2022-08-14] MEDS: INSULIN REGULAR 100 UNIT/ML SUBCUT SCH ×5 (01:29→23:17)
[2022-08-14] MEDS ORDERED: HEPARIN 10,000 UNIT/10 ML VIAL IV PRN (01:47)
[2022-08-14 03:54] LABS: Arterial Base Excess iSTAT 1 MMOL/L (-2.5-2.5); Arterial Bicarbonate iSTAT 25.7 MMOL/L (20-26); Arterial O2 Saturation iSTAT 99 % (95-100); Arterial PCO2 iSTAT 40 MM HG (35-48); Arterial PO2 iSTAT 119 MM HG (80-95); Arterial Total CO2 iSTAT 27 MMO/L (23-27)
[2022-08-14 04:02] LABS: Basophils % 0.2 % (0.0-0.8); Eosinophils % 0.6 % (0.00-10.9); Hematocrit 30.1 VOL% (35.7-47.0); Hemoglobin 9.8 GM/DL (12.0-16.0); Immature Granulocytes % 0.5 %; Immature Granulocytes Absolute 0.03 #; Lymphocytes # 1.4 10*3/uL (1.4-4.0); Lymphocytes % 22.2 % (21.3-54.2); Mean Corpuscular HGB Conc 32.6 GM/DL (32-36); Mean Corpuscular Volume 87.2 FL (87-102); Mean Platelet Volume 12.4 FL (9.6-12.0); Monocytes # 0.5 10*3/uL (0.11-0.8); Monocytes % 8.2 % (1.7-12.7); Neutrophils % 68.3 % (38.7-73.9); Platelet Count 237 T/CUMM (130-400); Red Blood Count 3.45 MC/CUMM (3.8-5.5); Red Cell Distribution Width 14.5 % (9.3-17.3); White Blood Count 6.5 T/CUMM (4-12)
[2022-08-14 04:21] LABS: Alanine Aminotransferase 250 U/L (13-56); Albumin 2.4 G/DL (3.4-5.0); Alkaline Phosphatase 140 U/L (45-117); Aspartate Amino Transferase 546 U/L (0-37); Bilirubin,Total < 0.39 MG/DL (0.20-1.00); Blood Urea Nitrogen 85 MG/DL (7-18); Carbon Dioxide 25 MMOL/L (21-32); Chloride 101 MMOL/L (98-107); Osmolality,Calculated 297.7 MOS/KG (273-304); Potassium 4.3 MMOL/L (3.5-5.1); Sodium 138 MMOL/L (136-145); Total Protein 7.1 G/DL (6.4-8.2)
[2022-08-14 04:23] LABS: Glucose 41 MG/DL (74-106)
[2022-08-14] MEDS: DEXTROSE 10% 250 ML BAG IV PRN ×3 (04:31→11:50)
[2022-08-14] MEDS: HYDROCORTISONE 100 MG VIAL IV SCH ×2 (09:21→17:03)
[2022-08-14] MEDS ORDERED: carvediloL 6.25 MG TABLET PO SCH (10:00)
[2022-08-14] MEDS: MIDAZOLAM 100 MG in SODIUM CHLORIDE 0.9% 80 ML IV PRN (15:02)
[2022-08-14] MEDS: carvediloL 6.25 MG TABLET PO SCH (17:03)
[2022-08-14] MEDS: FAMOTIDINE 20 MG/2 ML VIAL IV SCH (20:47)
[2022-08-14] MEDS: fentaNYL INJ 1,250 MCG in DEXTROSE 5% 225 ML IV PRN (22:19)
[2022-08-15] MEDS: MIDAZOLAM 100 MG in SODIUM CHLORIDE 0.9% 80 ML IV PRN ×2 (00:33→13:49)
[2022-08-15] MEDS: HYDROCORTISONE 100 MG VIAL IV SCH ×3 (00:36→17:49)
[2022-08-15 04:07] LABS: Basophils % 0.3 % (0.0-0.8); Eosinophils % 0.5 % (0.00-10.9); Hematocrit 28.8 VOL% (35.7-47.0); Hemoglobin 9.3 GM/DL (12.0-16.0); Immature Granulocytes % 0.5 %; Immature Granulocytes Absolute 0.04 #; Lymphocytes # 1.8 10*3/uL (1.4-4.0); Lymphocytes % 20.8 % (21.3-54.2); Mean Corpuscular HGB Conc 32.3 GM/DL (32-36); Mean Corpuscular Volume 88.6 FL (87-102); Mean Platelet Volume 12.6 FL (9.6-12.0); Monocytes # 0.7 10*3/uL (0.11-0.8); Monocytes % 8.5 % (1.7-12.7); Neutrophils % 69.4 % (38.7-73.9); Platelet Count 228 T/CUMM (130-400); Red Blood Count 3.25 MC/CUMM (3.8-5.5); Red Cell Distribution Width 14.5 % (9.3-17.3); White Blood Count 8.7 T/CUMM (4-12)
[2022-08-15 04:27] LABS: Calcium 9.3 MG/DL (8.5-10.1); Osmolality,Calculated 290.5 MOS/KG (273-304)
[2022-08-15 04:28] LABS: Potassium 6.1 MMOL/L (3.5-5.1)
[2022-08-15 05:45] LABS: Arterial Base Excess iSTAT 0 MMOL/L (-2.5-2.5); Arterial Bicarbonate iSTAT 25.1 MMOL/L (20-26); Arterial O2 Saturation iSTAT 99 % (95-100); Arterial PCO2 iSTAT 41 MM HG (35-48); Arterial PO2 iSTAT 134 MM HG (80-95); Arterial Total CO2 iSTAT 26 MMO/L (23-27); Arterial pH iSTAT 7.391 (7.35-7.45)
[2022-08-15] MEDS: INSULIN REGULAR 100 UNIT/ML SUBCUT SCH ×3 (05:54→17:49)
[2022-08-15] MEDS: carvediloL 6.25 MG TABLET PO SCH ×2 (08:31→16:02)
[2022-08-15] MEDS: fentaNYL INJ 1,250 MCG in DEXTROSE 5% 225 ML IV PRN (11:44)
[2022-08-15] MEDS ORDERED: SODIUM CHLORIDE 0.9% 250 ML IV ONE (16:33)
[2022-08-15] MEDS: FAMOTIDINE 20 MG/2 ML VIAL IV SCH (20:27)
[2022-08-15] MEDS: DOCUSATE SODIUM 100 MG/10 ML UDCUP PO SCH (20:27)
[2022-08-16] MEDS: HYDROCORTISONE 100 MG VIAL IV SCH ×3 (01:19→20:39)
[2022-08-16] MEDS: INSULIN REGULAR 100 UNIT/ML SUBCUT SCH ×4 (01:19→18:02)
[2022-08-16] MEDS: MIDAZOLAM 100 MG in SODIUM CHLORIDE 0.9% 80 ML IV PRN ×2 (02:16→23:34)
[2022-08-16] MEDS: fentaNYL INJ 1,250 MCG in SODIUM CHLORIDE 0.9% 225 ML IV PRN ×2 (03:03→18:19)
[2022-08-16 03:44] LABS: Arterial Base Excess iSTAT 1 MMOL/L (-2.5-2.5); Arterial Bicarbonate iSTAT 26.2 MMOL/L (20-26); Arterial O2 Saturation iSTAT 98 % (95-100); Arterial PCO2 iSTAT 46 MM HG (35-48); Arterial PO2 iSTAT 107 MM HG (80-95); Arterial Total CO2 iSTAT 28 MMO/L (23-27); Arterial pH iSTAT 7.362 (7.35-7.45)
[2022-08-16 03:53] LABS: Basophils % 0.4 % (0.0-0.8); Eosinophils # 0.1 10*3/uL (0.0-0.87); Eosinophils % 0.6 % (0.00-10.9); Hematocrit 29.3 VOL% (35.7-47.0); Hemoglobin 9.4 GM/DL (12.0-16.0); Immature Granulocytes % 0.8 %; Immature Granulocytes Absolute 0.08 #; Lymphocytes # 1.9 10*3/uL (1.4-4.0); Lymphocytes % 19.6 % (21.3-54.2); Mean Corpuscular HGB Conc 32.1 GM/DL (32-36); Mean Corpuscular Volume 89.1 FL (87-102); Mean Platelet Volume 12.6 FL (9.6-12.0); Monocytes # 0.8 10*3/uL (0.11-0.8); Monocytes % 8.2 % (1.7-12.7); Neutrophils % 70.4 % (38.7-73.9); Platelet Count 215 T/CUMM (130-400); Red Blood Count 3.29 MC/CUMM (3.8-5.5); Red Cell Distribution Width 14.3 % (9.3-17.3); White Blood Count 9.7 T/CUMM (4-12)
[2022-08-16 04:10] LABS: Alanine Aminotransferase 299 U/L (13-56); Albumin 2.2 G/DL (3.4-5.0); Alkaline Phosphatase 137 U/L (45-117); Aspartate Amino Transferase 360 U/L (0-37); Bilirubin,Total < 0.39 MG/DL (0.20-1.00); Blood Urea Nitrogen 63 MG/DL (7-18); Calcium 9.4 MG/DL (8.5-10.1); Carbon Dioxide 24 MMOL/L (21-32); Chloride 97 MMOL/L (98-107); Glucose 200 MG/DL (74-106); Osmolality,Calculated 285.7 MOS/KG (273-304); Potassium 5.1 MMOL/L (3.5-5.1); Sodium 131 MMOL/L (136-145)
[2022-08-16] MEDS: carvediloL 6.25 MG TABLET PO SCH ×2 (08:38→18:02)
[2022-08-16] MEDS: DOCUSATE SODIUM 100 MG/10 ML UDCUP PO SCH ×2 (08:38→20:39)
[2022-08-16] MEDS: HEPARIN 5,000 UNIT/1 ML VIAL SUBCUT SCH (11:47)
[2022-08-16] MEDS: POLYETHYLENE GLYCOL POWDER 17 GM PACK PO SCH (11:47)
[2022-08-16 16:09] LABS: Arterial Base Excess iSTAT 1 MMOL/L (-2.5-2.5); Arterial Bicarbonate iSTAT 29.6 MMOL/L (20-26); Arterial O2 Saturation iSTAT 97 % (95-100); Arterial PCO2 iSTAT 69 MM HG (35-48); Arterial PO2 iSTAT 109 MM HG (80-95); Arterial Total CO2 iSTAT 32 MMO/L (23-27); Arterial pH iSTAT 7.243 (7.35-7.45)
[2022-08-16] MEDS: FAMOTIDINE 20 MG/2 ML VIAL IV SCH (20:39)
[2022-08-17] MEDS: METOCLOPRAMIDE 10 MG/2 ML VIAL IV SCH ×5 (00:09→23:56)
[2022-08-17] MEDS: HEPARIN 5,000 UNIT/1 ML VIAL SUBCUT SCH ×3 (00:09→23:56)
[2022-08-17] MEDS: INSULIN REGULAR 100 UNIT/ML SUBCUT SCH ×5 (00:09→23:35)
[2022-08-17 03:50] LABS: Arterial Base Excess iSTAT 1 MMOL/L (-2.5-2.5); Arterial Bicarbonate iSTAT 24.9 MMOL/L (20-26); Arterial O2 Saturation iSTAT 99 % (95-100); Arterial PCO2 iSTAT 37 MM HG (35-48); Arterial PO2 iSTAT 114 MM HG (80-95); Arterial Total CO2 iSTAT 26 MMO/L (23-27); Arterial pH iSTAT 7.439 (7.35-7.45)
[2022-08-17 04:17] LABS: Phosphorous 7.1 MG/DL (2.5-4.9)
[2022-08-17 04:46] LABS: Alanine Aminotransferase 297 U/L (13-56); Albumin 2.3 G/DL (3.4-5.0); Alkaline Phosphatase 139 U/L (45-117); Aspartate Amino Transferase 264 U/L (0-37); Bilirubin,Total < 0.39 MG/DL (0.20-1.00); Blood Urea Nitrogen 67 MG/DL (7-18); Calcium 9.4 MG/DL (8.5-10.1); Carbon Dioxide 23 MMOL/L (21-32); Chloride 98 MMOL/L (98-107); Glucose 144 MG/DL (74-106); Osmolality,Calculated 289.2 MOS/KG (273-304); Sodium 134 MMOL/L (136-145); Total Protein 6.9 G/DL (6.4-8.2)
[2022-08-17 06:25] LABS: Basophils % 0.4 % (0.0-0.8); Eosinophils # 0.1 10*3/uL (0.0-0.87); Eosinophils % 1.2 % (0.00-10.9); Hematocrit 28.6 VOL% (35.7-47.0); Hemoglobin 9.1 GM/DL (12.0-16.0); Immature Granulocytes % 0.7 %; Immature Granulocytes Absolute 0.07 #; Lymphocytes # 2.5 10*3/uL (1.4-4.0); Lymphocytes % 24.8 % (21.3-54.2); Mean Corpuscular HGB Conc 31.8 GM/DL (32-36); Mean Corpuscular Volume 89.9 FL (87-102); Mean Platelet Volume 13.5 FL (9.6-12.0); Monocytes # 0.8 10*3/uL (0.11-0.8); Monocytes % 8.2 % (1.7-12.7); NRBC # 0.02 10*3/uL; Neutrophils % 64.7 % (38.7-73.9); Platelet Count 226 T/CUMM (130-400); Red Blood Count 3.18 MC/CUMM (3.8-5.5); Red Cell Distribution Width 14.1 % (9.3-17.3); White Blood Count 9.9 T/CUMM (4-12)
[2022-08-17] MEDS: DOCUSATE SODIUM 100 MG/10 ML UDCUP PO SCH ×2 (08:39→20:33)
[2022-08-17] MEDS: POLYETHYLENE GLYCOL POWDER 17 GM PACK PO SCH (08:39)
[2022-08-17] MEDS: carvediloL 6.25 MG TABLET PO SCH ×2 (08:46→16:06)
[2022-08-17] MEDS: HYDROCORTISONE 100 MG VIAL IV SCH ×2 (08:55→20:34)
[2022-08-17 15:20] LABS: Arterial Base Excess iSTAT 1 MMOL/L (-2.5-2.5); Arterial Bicarbonate iSTAT 26.7 MMOL/L (20-26); Arterial O2 Saturation iSTAT 96 % (95-100); Arterial PCO2 iSTAT 47 MM HG (35-48); Arterial PO2 iSTAT 86 MM HG (80-95); Arterial Total CO2 iSTAT 28 MMO/L (23-27); Arterial pH iSTAT 7.363 (7.35-7.45)
[2022-08-17] MEDS: FAMOTIDINE 20 MG/2 ML VIAL IV SCH (20:33)
[2022-08-18 03:47] LABS: Arterial Base Excess iSTAT -1 MMOL/L (-2.5-2.5); Arterial Bicarbonate iSTAT 25.4 MMOL/L (20-26); Arterial O2 Saturation iSTAT 97 % (95-100); Arterial PCO2 iSTAT 49 MM HG (35-48); Arterial PO2 iSTAT 95 MM HG (80-95); Arterial Total CO2 iSTAT 27 MMO/L (23-27); Arterial pH iSTAT 7.321 (7.35-7.45)
[2022-08-18 03:59] LABS: Alanine Aminotransferase 251 U/L (13-56); Albumin 2.4 G/DL (3.4-5.0); Alkaline Phosphatase 138 U/L (45-117); Aspartate Amino Transferase 162 U/L (0-37); Bilirubin,Total < 0.39 MG/DL (0.20-1.00); Blood Urea Nitrogen 66 MG/DL (7-18); Calcium 9.5 MG/DL (8.5-10.1); Carbon Dioxide 24 MMOL/L (21-32); Chloride 100 MMOL/L (98-107); Glucose 186 MG/DL (74-106); Osmolality,Calculated 293.1 MOS/KG (273-304); Potassium 5.4 MMOL/L (3.5-5.1); Sodium 135 MMOL/L (136-145); Total Protein 7.2 G/DL (6.4-8.2)
[2022-08-18] MEDS: INSULIN REGULAR 100 UNIT/ML SUBCUT SCH ×4 (05:20→23:50)
[2022-08-18] MEDS: METOCLOPRAMIDE 10 MG/2 ML VIAL IV SCH ×3 (05:48→17:25)
[2022-08-18] MEDS: HYDROCORTISONE 100 MG VIAL IV SCH (09:03)
[2022-08-18] MEDS: carvediloL 6.25 MG TABLET PO SCH ×2 (09:16→17:25)
[2022-08-18] MEDS: DOCUSATE SODIUM 100 MG/10 ML UDCUP PO SCH ×2 (09:16→20:36)
[2022-08-18] MEDS: POLYETHYLENE GLYCOL POWDER 17 GM PACK PO SCH (09:16)
[2022-08-18] MEDS ORDERED: FLUTICASONE 50 MCG NASAL SPRAY 16 GM BOTTLE BOTH NARES PRN (11:25)
[2022-08-18] MEDS: LEVOTHYROXINE 50 MCG TABLET PO SCH (17:24)
[2022-08-18] MEDS: ERGOCALCIFEROL 50,000 UNIT CAPSULE PO SCH (17:24)
[2022-08-18] MEDS: HEPARIN 5,000 UNIT/1 ML VIAL SUBCUT SCH (17:24)
[2022-08-18] MEDS: FAMOTIDINE 20 MG/2 ML VIAL IV SCH (20:36)
[2022-08-18] MEDS: GABAPENTIN 600 MG TABLET PO SCH (20:36)
[2022-08-19] MEDS: HEPARIN 5,000 UNIT/1 ML VIAL SUBCUT SCH ×3 (00:41→15:16)
[2022-08-19] MEDS: METOCLOPRAMIDE 10 MG/2 ML VIAL IV SCH ×4 (00:41→18:38)
[2022-08-19 05:10] LABS: Alanine Aminotransferase 199 U/L (13-56); Albumin 2.3 G/DL (3.4-5.0); Alkaline Phosphatase 149 U/L (45-117); Aspartate Amino Transferase 89 U/L (0-37); Bilirubin,Total < 0.39 MG/DL (0.20-1.00); Blood Urea Nitrogen 109 MG/DL (7-18); Calcium 8.7 MG/DL (8.5-10.1); Carbon Dioxide 23 MMOL/L (21-32); Chloride 99 MMOL/L (98-107); Glucose 143 MG/DL (74-106); Osmolality,Calculated 305.1 MOS/KG (273-304); Potassium 5.2 MMOL/L (3.5-5.1); Sodium 135 MMOL/L (136-145); Total Protein 7.1 G/DL (6.4-8.2)
[2022-08-19] MEDS: INSULIN REGULAR 100 UNIT/ML SUBCUT SCH ×3 (06:06→18:37)
[2022-08-19 08:51] LABS: Arterial Base Excess iSTAT -4 MMOL/L (-2.5-2.5); Arterial Bicarbonate iSTAT 23.5 MMOL/L (20-26); Arterial O2 Saturation iSTAT 96 % (95-100); Arterial PCO2 iSTAT 52 MM HG (35-48); Arterial PO2 iSTAT 96 MM HG (80-95); Arterial Total CO2 iSTAT 25 MMO/L (23-27); Arterial pH iSTAT 7.262 (7.35-7.45)
[2022-08-19] MEDS: carvediloL 6.25 MG TABLET PO SCH ×2 (09:08→18:37)
[2022-08-19] MEDS: POLYETHYLENE GLYCOL POWDER 17 GM PACK PO SCH (09:08)
[2022-08-19] MEDS: DOCUSATE SODIUM 100 MG/10 ML UDCUP PO SCH ×2 (09:08→21:07)
[2022-08-19] MEDS: LEVOTHYROXINE 50 MCG TABLET PO SCH (09:08)
[2022-08-19 13:08] LABS: Arterial Base Excess iSTAT 0 MMOL/L (-2.5-2.5); Arterial Bicarbonate iSTAT 25.3 MMOL/L (20-26); Arterial O2 Saturation iSTAT 96 % (95-100); Arterial PCO2 iSTAT 44 MM HG (35-48); Arterial PO2 iSTAT 85 MM HG (80-95); Arterial Total CO2 iSTAT 27 MMO/L (23-27); Arterial pH iSTAT 7.365 (7.35-7.45)
[2022-08-19] MEDS: ALBUTEROL/IPRATROPIUM 3 ML NEB RESP TX SCH (19:12)
[2022-08-19] MEDS: FAMOTIDINE 20 MG/2 ML VIAL IV SCH (21:07)
[2022-08-19] MEDS: GABAPENTIN 600 MG TABLET PO SCH (21:07)
[2022-08-20] MEDS: HEPARIN 5,000 UNIT/1 ML VIAL SUBCUT SCH ×4 (00:26→22:04)
[2022-08-20] MEDS: INSULIN REGULAR 100 UNIT/ML SUBCUT SCH ×4 (00:27→18:05)
[2022-08-20] MEDS: METOCLOPRAMIDE 10 MG/2 ML VIAL IV SCH ×4 (00:27→18:05)
[2022-08-20] MEDS: ALBUTEROL/IPRATROPIUM 3 ML NEB RESP TX SCH ×4 (02:18→19:22)
[2022-08-20 04:36] LABS: ABG Base Excess -2.4 MMOL/L (-2.5-2.5); ABG HCO3 22.3 MMOL/L (20-26); ABG Oxygen Saturation 95.1 % (95-100); ABG PCO2 48.2 MM HG (35-48); ABG PH 7.306 (7.35-7.45); ABG PO2 89.8 MM HG (80-95); ABG TCO2 22.3 MMOL/L (23-27); Allen Test Positive
[2022-08-20 05:41] LABS: Basophils % 0.3 % (0.0-0.8); Eosinophils # 0.3 10*3/uL (0.0-0.87); Eosinophils % 3.3 % (0.00-10.9); Hemoglobin 9.3 GM/DL (12.0-16.0); Immature Granulocytes % 0.9 %; Immature Granulocytes Absolute 0.09 #; Lymphocytes # 3.5 10*3/uL (1.4-4.0); Lymphocytes % 35.1 % (21.3-54.2); Mean Corpuscular Volume 93.9 FL (87-102); Mean Platelet Volume 13.2 FL (9.6-12.0); Monocytes # 1.3 10*3/uL (0.11-0.8); Monocytes % 13.1 % (1.7-12.7); Neutrophils % 47.3 % (38.7-73.9); Platelet Count 228 T/CUMM (130-400); Red Cell Distribution Width 13.8 % (9.3-17.3); White Blood Count 9.8 T/CUMM (4-12)
[2022-08-20 06:10] LABS: Alanine Aminotransferase 146 U/L (13-56); Alkaline Phosphatase 168 U/L (45-117); Aspartate Amino Transferase 49 U/L (0-37); Bilirubin,Total < 0.39 MG/DL (0.20-1.00); Blood Urea Nitrogen 87 MG/DL (7-18); Calcium 9.9 MG/DL (8.5-10.1); Carbon Dioxide 20 MMOL/L (21-32); Chloride 99 MMOL/L (98-107); Glucose 124 MG/DL (74-106); Osmolality,Calculated 295.2 MOS/KG (273-304); Potassium 5.3 MMOL/L (3.5-5.1); Sodium 134 MMOL/L (136-145); Total Protein 7.1 G/DL (6.4-8.2)
[2022-08-20] MEDS: DOCUSATE SODIUM 100 MG/10 ML UDCUP PO SCH ×2 (08:32→21:40)
[2022-08-20] MEDS: POLYETHYLENE GLYCOL POWDER 17 GM PACK PO SCH (08:33)
[2022-08-20] MEDS: carvediloL 6.25 MG TABLET PO SCH ×2 (08:33→17:59)
[2022-08-20] MEDS: LEVOTHYROXINE 50 MCG TABLET PO SCH (08:33)
[2022-08-20] MEDS ORDERED: SODIUM ZIRCONIUM CYCLOSILICATE 10 GM PACK PO ONE (11:00)
[2022-08-20] MEDS: FAMOTIDINE 20 MG/2 ML VIAL IV SCH (21:40)
[2022-08-21] MEDS: METOCLOPRAMIDE 10 MG/2 ML VIAL IV SCH ×5 (00:51→23:00)
[2022-08-21] MEDS: INSULIN REGULAR 100 UNIT/ML SUBCUT SCH ×6 (00:55→21:00)
[2022-08-21] MEDS: ALBUTEROL/IPRATROPIUM 3 ML NEB RESP TX SCH ×4 (01:40→19:10)
[2022-08-21 04:29] LABS: Basophils # 0.1 10*3/uL (0.0-0.2); Basophils % 0.5 % (0.0-0.8); Eosinophils # 0.3 10*3/uL (0.0-0.87); Eosinophils % 2.8 % (0.00-10.9); Hematocrit 29.4 VOL% (35.7-47.0); Immature Granulocytes % 0.8 %; Immature Granulocytes Absolute 0.08 #; Lymphocytes # 4.2 10*3/uL (1.4-4.0); Lymphocytes % 40.8 % (21.3-54.2); Mean Corpuscular HGB Conc 30.6 GM/DL (32-36); Mean Corpuscular Volume 92.2 FL (87-102); Mean Platelet Volume 12.9 FL (9.6-12.0); Monocytes # 1.5 10*3/uL (0.11-0.8); Monocytes % 14.6 % (1.7-12.7); Neutrophils % 40.5 % (38.7-73.9); Platelet Count 214 T/CUMM (130-400); Red Blood Count 3.19 MC/CUMM (3.8-5.5); Red Cell Distribution Width 13.7 % (9.3-17.3); White Blood Count 10.3 T/CUMM (4-12)
[2022-08-21 04:52] LABS: Alanine Aminotransferase 110 U/L (13-56); Albumin 2.1 G/DL (3.4-5.0); Alkaline Phosphatase 147 U/L (45-117); Aspartate Amino Transferase 30 U/L (0-37); Bilirubin,Total < 0.39 MG/DL (0.20-1.00); Blood Urea Nitrogen 112 MG/DL (7-18); Calcium 9.1 MG/DL (8.5-10.1); Carbon Dioxide 21 MMOL/L (21-32); Chloride 97 MMOL/L (98-107); Glucose 119 MG/DL (74-106); Osmolality,Calculated 302.4 MOS/KG (273-304); Potassium 4.9 MMOL/L (3.5-5.1); Sodium 133 MMOL/L (136-145)
[2022-08-21] MEDS: HEPARIN 5,000 UNIT/1 ML VIAL SUBCUT SCH (07:20)
[2022-08-21] MEDS: carvediloL 6.25 MG TABLET PO SCH ×2 (08:26→17:31)
[2022-08-21] MEDS ORDERED: ALTEPLASE 2 MG VIAL IV ONE (09:30)
[2022-08-21] MEDS: LEVOTHYROXINE 50 MCG TABLET PO SCH (11:19)
[2022-08-21] MEDS: POLYETHYLENE GLYCOL POWDER 17 GM PACK PO SCH (11:19)
[2022-08-21] MEDS: DOCUSATE SODIUM 100 MG/10 ML UDCUP PO SCH ×2 (11:19→20:15)
[2022-08-21] MEDS: FAMOTIDINE 20 MG/2 ML VIAL IV SCH (20:15)
[2022-08-22] MEDS: ALBUTEROL/IPRATROPIUM 3 ML NEB RESP TX SCH ×4 (00:41→19:00)
[2022-08-22 04:52] LABS: Basophils % 0.5 % (0.0-0.8); Eosinophils # 0.3 10*3/uL (0.0-0.87); Eosinophils % 3.8 % (0.00-10.9); Hematocrit 26.2 VOL% (35.7-47.0); Hemoglobin 7.9 GM/DL (12.0-16.0); Immature Granulocytes % 0.8 %; Immature Granulocytes Absolute 0.06 #; Lymphocytes # 2.8 10*3/uL (1.4-4.0); Lymphocytes % 37.7 % (21.3-54.2); Mean Corpuscular HGB Conc 30.2 GM/DL (32-36); Mean Corpuscular Volume 94.2 FL (87-102); Mean Platelet Volume 13.1 FL (9.6-12.0); Monocytes # 1.1 10*3/uL (0.11-0.8); Monocytes % 14.9 % (1.7-12.7); Neutrophils % 42.3 % (38.7-73.9); Platelet Count 187 T/CUMM (130-400); Red Blood Count 2.78 MC/CUMM (3.8-5.5); Red Cell Distribution Width 13.7 % (9.3-17.3); White Blood Count 7.5 T/CUMM (4-12)
[2022-08-22 05:16] LABS: Calcium 9.2 MG/DL (8.5-10.1); Osmolality,Calculated 310.1 MOS/KG (273-304); Potassium 4.9 MMOL/L (3.5-5.1)
[2022-08-22] MEDS: METOCLOPRAMIDE 10 MG/2 ML VIAL IV SCH ×2 (06:15→12:33)
[2022-08-22] MEDS ORDERED: LIDOCAINE 2%/EPI 20 ML VIAL ONE (08:06)
[2022-08-22] MEDS ORDERED: BUPIVACAINE MPF 0.25% 10 ML VIAL ONE (08:06)
[2022-08-22] MEDS ORDERED: HEPARIN 5,000 UNIT/1 ML VIAL ONE (08:07)
[2022-08-22] MEDS ORDERED: LIDOCAINE 2% 5 ML VIAL ONE (08:17)
[2022-08-22] MEDS ORDERED: propofoL 200 MG/20 ML VIAL IV ONE (08:17)
[2022-08-22] MEDS ORDERED: ETOMIDATE 40 MG/20 ML VIAL IV ONE (08:17)
[2022-08-22] MEDS ORDERED: MIDAZOLAM 2 MG/2 ML VIAL ONE (08:18)
[2022-08-22] MEDS ORDERED: fentaNYL 100 MCG/2 ML VIAL ONE (08:18)
[2022-08-22] MEDS: INSULIN REGULAR 100 UNIT/ML SUBCUT SCH ×4 (08:38→20:35)
[2022-08-22] MEDS ORDERED: ceFAZolin 1,000 MG VIAL ONE (09:11)
[2022-08-22] MEDS ORDERED: SODIUM CHLORIDE 0.9% 100 ML IV ONE (09:18)
[2022-08-22] MEDS ORDERED: DEXTROSE 50% 25 GM/50 ML VIAL IV PRN (11:42)
[2022-08-22] MEDS: carvediloL 6.25 MG TABLET PO SCH ×2 (12:31→17:21)
[2022-08-22] MEDS: LEVOTHYROXINE 50 MCG TABLET PO SCH (12:33)
[2022-08-22] MEDS: POLYETHYLENE GLYCOL POWDER 17 GM PACK PO SCH (12:33)
[2022-08-22] MEDS: DOCUSATE SODIUM 100 MG/10 ML UDCUP PO SCH ×2 (12:33→20:35)
[2022-08-22] MEDS: ACETAMINOPHEN 325 MG TABLET PO PRN ×2 (15:21→20:35)
[2022-08-22] MEDS: METOCLOPRAMIDE 5 MG TABLET PO SCH (17:21)
[2022-08-22] MEDS: FAMOTIDINE 20 MG/2 ML VIAL IV SCH (20:35)
[2022-08-23] MEDS: ALBUTEROL/IPRATROPIUM 3 ML NEB RESP TX SCH ×5 (00:35→23:56)
[2022-08-23] MEDS: METOCLOPRAMIDE 5 MG TABLET PO SCH ×5 (00:51→23:43)
[2022-08-23] MEDS: ACETAMINOPHEN 325 MG TABLET PO PRN ×2 (02:50→09:30)
[2022-08-23 06:52] LABS: Basophils % 0.4 % (0.0-0.8); Eosinophils # 0.3 10*3/uL (0.0-0.87); Eosinophils % 3.7 % (0.00-10.9); Hematocrit 25.9 VOL% (35.7-47.0); Hemoglobin 7.9 GM/DL (12.0-16.0); Immature Granulocytes % 0.9 %; Immature Granulocytes Absolute 0.06 #; Lymphocytes # 2.5 10*3/uL (1.4-4.0); Lymphocytes % 35.3 % (21.3-54.2); Mean Corpuscular HGB Conc 30.5 GM/DL (32-36); Mean Corpuscular Volume 92.5 FL (87-102); Mean Platelet Volume 13.4 FL (9.6-12.0); Monocytes # 0.9 10*3/uL (0.11-0.8); Monocytes % 12.2 % (1.7-12.7); Neutrophils % 47.5 % (38.7-73.9); Platelet Count 181 T/CUMM (130-400); Red Cell Distribution Width 13.5 % (9.3-17.3); White Blood Count 6.9 T/CUMM (4-12)
[2022-08-23 07:06] LABS: Calcium 9.1 MG/DL (8.5-10.1); Osmolality,Calculated 305.8 MOS/KG (273-304); Potassium 5.6 MMOL/L (3.5-5.1)
[2022-08-23] MEDS: carvediloL 6.25 MG TABLET PO SCH ×2 (09:12→16:05)
[2022-08-23] MEDS: LEVOTHYROXINE 50 MCG TABLET PO SCH (09:12)
[2022-08-23] MEDS: INSULIN REGULAR 100 UNIT/ML SUBCUT SCH ×4 (09:14→21:00)
[2022-08-23] MEDS: DOCUSATE SODIUM 100 MG/10 ML UDCUP PO SCH ×2 (09:15→21:00)
[2022-08-23] MEDS: POLYETHYLENE GLYCOL POWDER 17 GM PACK PO SCH (09:16)
[2022-08-23] MEDS: traMADol 50 MG TABLET PO PRN (14:50)
[2022-08-23] MEDS: FAMOTIDINE 20 MG/2 ML VIAL IV SCH (21:00)
[2022-08-24] MEDS: METOCLOPRAMIDE 5 MG TABLET PO SCH ×3 (05:36→17:01)
[2022-08-24 05:46] LABS: Basophils % 0.6 % (0.0-0.8); Eosinophils # 0.2 10*3/uL (0.0-0.87); Eosinophils % 3.3 % (0.00-10.9); Hematocrit 26.5 VOL% (35.7-47.0); Hemoglobin 8.4 GM/DL (12.0-16.0); Immature Granulocytes % 0.4 %; Immature Granulocytes Absolute 0.03 #; Lymphocytes # 2.4 10*3/uL (1.4-4.0); Lymphocytes % 34.2 % (21.3-54.2); Mean Corpuscular HGB Conc 31.7 GM/DL (32-36); Mean Corpuscular Volume 91.1 FL (87-102); Mean Platelet Volume 13.4 FL (9.6-12.0); Monocytes # 1.1 10*3/uL (0.11-0.8); Monocytes % 15.7 % (1.7-12.7); Neutrophils % 45.8 % (38.7-73.9); Platelet Count 181 T/CUMM (130-400); Red Blood Count 2.91 MC/CUMM (3.8-5.5); Red Cell Distribution Width 13.5 % (9.3-17.3)
[2022-08-24 06:08] LABS: Calcium 9.3 MG/DL (8.5-10.1); Osmolality,Calculated 295.1 MOS/KG (273-304); Potassium 4.2 MMOL/L (3.5-5.1)
[2022-08-24 06:33] LABS: Eosinophils 2 % (0-10); Lymphocytes 38 % (20-55); Platelet Estimate Normal; Total Cells Counted 100
[2022-08-24] MEDS: ALBUTEROL/IPRATROPIUM 3 ML NEB RESP TX SCH ×3 (07:30→19:50)
[2022-08-24] MEDS: INSULIN REGULAR 100 UNIT/ML SUBCUT SCH ×4 (09:03→21:51)
[2022-08-24] MEDS: carvediloL 6.25 MG TABLET PO SCH ×2 (09:03→17:01)
[2022-08-24] MEDS: LEVOTHYROXINE 50 MCG TABLET PO SCH (09:03)
[2022-08-24] MEDS: DOCUSATE SODIUM 100 MG/10 ML UDCUP PO SCH ×2 (09:03→21:50)
[2022-08-24] MEDS: POLYETHYLENE GLYCOL POWDER 17 GM PACK PO SCH (09:04)
[2022-08-24] MEDS: ACETAMINOPHEN 325 MG TABLET PO PRN (14:27)
[2022-08-24] MEDS: FAMOTIDINE 20 MG/2 ML VIAL IV SCH (21:51)
[2022-08-25] MEDS: METOCLOPRAMIDE 5 MG TABLET PO SCH ×4 (00:05→17:51)
[2022-08-25] MEDS: ALBUTEROL/IPRATROPIUM 3 ML NEB RESP TX SCH ×4 (00:42→19:36)
[2022-08-25] MEDS: ACETAMINOPHEN 325 MG TABLET PO PRN (01:21)
[2022-08-25] MEDS: traMADol 50 MG TABLET PO PRN (04:54)
[2022-08-25 05:49] LABS: Basophils % 0.4 % (0.0-0.8); Eosinophils # 0.2 10*3/uL (0.0-0.87); Eosinophils % 3.1 % (0.00-10.9); Hematocrit 24.9 VOL% (35.7-47.0); Hemoglobin 7.8 GM/DL (12.0-16.0); Immature Granulocytes % 0.4 %; Immature Granulocytes Absolute 0.03 #; Lymphocytes # 2.5 10*3/uL (1.4-4.0); Lymphocytes % 36.6 % (21.3-54.2); Mean Corpuscular HGB Conc 31.3 GM/DL (32-36); Mean Corpuscular Volume 91.5 FL (87-102); Mean Platelet Volume 13.7 FL (9.6-12.0); Monocytes # 0.9 10*3/uL (0.11-0.8); Monocytes % 12.8 % (1.7-12.7); Neutrophils % 46.7 % (38.7-73.9); Platelet Count 178 T/CUMM (130-400); Red Blood Count 2.72 MC/CUMM (3.8-5.5); Red Cell Distribution Width 13.6 % (9.3-17.3); White Blood Count 6.7 T/CUMM (4-12)
[2022-08-25 06:09] LABS: Calcium 9.2 MG/DL (8.5-10.1); Osmolality,Calculated 301.4 MOS/KG (273-304); Potassium 4.6 MMOL/L (3.5-5.1)
[2022-08-25 06:30] LABS: Anisocytosis 1+; Hypochromia 1+; Macrocytosis 1+; Platelet Estimate Normal
[2022-08-25] MEDS: DOCUSATE SODIUM 100 MG/10 ML UDCUP PO SCH ×2 (08:22→20:00)
[2022-08-25] MEDS: POLYETHYLENE GLYCOL POWDER 17 GM PACK PO SCH (08:22)
[2022-08-25] MEDS: INSULIN REGULAR 100 UNIT/ML SUBCUT SCH ×4 (09:33→20:00)
[2022-08-25] MEDS: carvediloL 6.25 MG TABLET PO SCH ×2 (09:33→17:51)
[2022-08-25] MEDS: LEVOTHYROXINE 50 MCG TABLET PO SCH (09:33)
[2022-08-25] MEDS: ERGOCALCIFEROL 50,000 UNIT CAPSULE PO SCH (11:13)
[2022-08-25] MEDS: diphenhydrAMINE CAP 25 MG CAPSULE PO PRN (19:55)
[2022-08-25] MEDS: FAMOTIDINE 20 MG/2 ML VIAL IV SCH (20:02)
[2022-08-26] MEDS: ALBUTEROL/IPRATROPIUM 3 ML NEB RESP TX SCH ×4 (00:05→19:59)
[2022-08-26] MEDS: METOCLOPRAMIDE 5 MG TABLET PO SCH ×5 (00:10→23:50)
[2022-08-26] MEDS: ACETAMINOPHEN 325 MG TABLET PO PRN ×2 (01:16→23:53)
[2022-08-26 06:32] LABS: Basophils # 0.1 10*3/uL (0.0-0.2); Basophils % 0.8 % (0.0-0.8); Eosinophils # 0.3 10*3/uL (0.0-0.87); Eosinophils % 3.8 % (0.00-10.9); Hematocrit 24.6 VOL% (35.7-47.0); Hemoglobin 7.7 GM/DL (12.0-16.0); Immature Granulocytes % 0.3 %; Immature Granulocytes Absolute 0.02 #; Lymphocytes # 3.3 10*3/uL (1.4-4.0); Mean Corpuscular HGB Conc 31.3 GM/DL (32-36); Mean Corpuscular Volume 90.4 FL (87-102); Mean Platelet Volume 13.2 FL (9.6-12.0); Monocytes # 0.8 10*3/uL (0.11-0.8); Monocytes % 10.1 % (1.7-12.7); Platelet Count 181 T/CUMM (130-400); Red Blood Count 2.72 MC/CUMM (3.8-5.5); Red Cell Distribution Width 13.7 % (9.3-17.3); White Blood Count 7.4 T/CUMM (4-12)
[2022-08-26 06:45] LABS: Calcium 9.4 MG/DL (8.5-10.1); Potassium 4.7 MMOL/L (3.5-5.1)
[2022-08-26 07:10] LABS: Anisocytosis 1+; Macrocytosis Slight; Platelet Estimate Normal
[2022-08-26] MEDS: INSULIN REGULAR 100 UNIT/ML SUBCUT SCH ×4 (08:45→20:35)
[2022-08-26] MEDS: carvediloL 6.25 MG TABLET PO SCH ×2 (10:21→16:51)
[2022-08-26] MEDS: DOCUSATE SODIUM 100 MG/10 ML UDCUP PO SCH ×2 (12:45→20:36)
[2022-08-26] MEDS: POLYETHYLENE GLYCOL POWDER 17 GM PACK PO SCH (12:46)
[2022-08-26] MEDS: LEVOTHYROXINE 50 MCG TABLET PO SCH (12:46)
[2022-08-26] MEDS: FAMOTIDINE 20 MG/2 ML VIAL IV SCH (20:36)
[2022-08-27] MEDS: ALBUTEROL/IPRATROPIUM 3 ML NEB RESP TX SCH ×4 (00:58→19:15)
[2022-08-27 05:07] LABS: Basophils # 0.1 10*3/uL (0.0-0.2); Basophils % 0.7 % (0.0-0.8); Eosinophils # 0.3 10*3/uL (0.0-0.87); Eosinophils % 3.9 % (0.00-10.9); Hematocrit 25.5 VOL% (35.7-47.0); Immature Granulocytes % 0.3 %; Immature Granulocytes Absolute 0.02 #; Lymphocytes # 3.1 10*3/uL (1.4-4.0); Lymphocytes % 42.7 % (21.3-54.2); Mean Corpuscular HGB Conc 31.4 GM/DL (32-36); Mean Corpuscular Volume 91.7 FL (87-102); Mean Platelet Volume 12.5 FL (9.6-12.0); Monocytes # 0.7 10*3/uL (0.11-0.8); Monocytes % 10.1 % (1.7-12.7); Neutrophils % 42.3 % (38.7-73.9); Platelet Count 188 T/CUMM (130-400); Red Blood Count 2.78 MC/CUMM (3.8-5.5); Red Cell Distribution Width 13.6 % (9.3-17.3); White Blood Count 7.2 T/CUMM (4-12)
[2022-08-27] MEDS: traMADol 50 MG TABLET PO PRN ×2 (05:13→11:09)
[2022-08-27] MEDS: METOCLOPRAMIDE 5 MG TABLET PO SCH ×3 (05:13→17:02)
[2022-08-27 05:32] LABS: Calcium 9.7 MG/DL (8.5-10.1); Potassium 4.3 MMOL/L (3.5-5.1)
[2022-08-27] MEDS: LEVOTHYROXINE 50 MCG TABLET PO SCH (08:06)
[2022-08-27] MEDS: carvediloL 6.25 MG TABLET PO SCH ×2 (08:06→17:02)
[2022-08-27] MEDS: DOCUSATE SODIUM 100 MG/10 ML UDCUP PO SCH ×2 (08:06→21:16)
[2022-08-27] MEDS: INSULIN REGULAR 100 UNIT/ML SUBCUT SCH ×4 (08:06→21:16)
[2022-08-27] MEDS: POLYETHYLENE GLYCOL POWDER 17 GM PACK PO SCH (08:09)
[2022-08-27] MEDS: diphenhydrAMINE CAP 25 MG CAPSULE PO PRN (16:28)
[2022-08-27] MEDS: FAMOTIDINE 20 MG/2 ML VIAL IV SCH (21:17)
[2022-08-28] MEDS: ALBUTEROL/IPRATROPIUM 3 ML NEB RESP TX SCH ×4 (00:39→19:03)
[2022-08-28] MEDS: diphenhydrAMINE CAP 25 MG CAPSULE PO PRN ×3 (00:41→17:12)
[2022-08-28] MEDS: METOCLOPRAMIDE 5 MG TABLET PO SCH ×4 (00:42→17:09)
[2022-08-28 06:45] LABS: Basophils % 0.6 % (0.0-0.8); Eosinophils # 0.2 10*3/uL (0.0-0.87); Eosinophils % 3.4 % (0.00-10.9); Hematocrit 25.5 VOL% (35.7-47.0); Hemoglobin 7.8 GM/DL (12.0-16.0); Immature Granulocytes % 0.2 %; Immature Granulocytes Absolute 0.01 #; Lymphocytes # 3.1 10*3/uL (1.4-4.0); Lymphocytes % 50.7 % (21.3-54.2); Mean Corpuscular HGB Conc 30.6 GM/DL (32-36); Mean Corpuscular Volume 91.7 FL (87-102); Mean Platelet Volume 13.2 FL (9.6-12.0); Monocytes # 0.6 10*3/uL (0.11-0.8); Monocytes % 9.9 % (1.7-12.7); Neutrophils % 35.2 % (38.7-73.9); Platelet Count 183 T/CUMM (130-400); Red Blood Count 2.78 MC/CUMM (3.8-5.5); Red Cell Distribution Width 13.8 % (9.3-17.3); White Blood Count 6.2 T/CUMM (4-12)
[2022-08-28 06:59] LABS: Calcium 9.5 MG/DL (8.5-10.1); Osmolality,Calculated 290.8 MOS/KG (273-304); Potassium 4.2 MMOL/L (3.5-5.1)
[2022-08-28 07:18] LABS: Eosinophils 6 % (0-10); Lymphocytes 50 % (20-55); Platelet Estimate Adequate; Total Cells Counted 100
[2022-08-28 07:19] LABS: Hypochromia Slight; Microcytosis Slight
[2022-08-28] MEDS: carvediloL 6.25 MG TABLET PO SCH ×2 (08:57→17:09)
[2022-08-28] MEDS: CALCIUM ACETATE 667 MG CAPSULE PO SCH ×3 (08:58→17:09)
[2022-08-28] MEDS: LEVOTHYROXINE 50 MCG TABLET PO SCH (08:58)
[2022-08-28] MEDS: POLYETHYLENE GLYCOL POWDER 17 GM PACK PO SCH (08:58)
[2022-08-28] MEDS: DOCUSATE SODIUM 100 MG/10 ML UDCUP PO SCH ×2 (08:59→20:54)
[2022-08-28] MEDS: INSULIN REGULAR 100 UNIT/ML SUBCUT SCH ×4 (09:07→20:55)
[2022-08-28 14:28] LABS: Folate 7.65 NG/ML (5.38-24.0)
[2022-08-28] MEDS: FAMOTIDINE 20 MG/2 ML VIAL IV SCH (20:54)
[2022-08-29] MEDS: ALBUTEROL/IPRATROPIUM 3 ML NEB RESP TX SCH ×4 (00:08→19:32)
[2022-08-29] MEDS: diphenhydrAMINE CAP 25 MG CAPSULE PO PRN ×3 (00:57→20:41)
[2022-08-29] MEDS: METOCLOPRAMIDE 5 MG TABLET PO SCH ×4 (00:57→17:34)
[2022-08-29 04:47] LABS: Basophils # 0.1 10*3/uL (0.0-0.2); Basophils % 0.8 % (0.0-0.8); Eosinophils # 0.2 10*3/uL (0.0-0.87); Eosinophils % 3.2 % (0.00-10.9); Hematocrit 25.5 VOL% (35.7-47.0); Hemoglobin 7.8 GM/DL (12.0-16.0); Immature Granulocytes % 0.1 %; Immature Granulocytes Absolute 0.01 #; Lymphocytes # 3.7 10*3/uL (1.4-4.0); Lymphocytes % 49.3 % (21.3-54.2); Mean Corpuscular HGB Conc 30.6 GM/DL (32-36); Mean Corpuscular Volume 92.4 FL (87-102); Mean Platelet Volume 12.9 FL (9.6-12.0); Monocytes # 0.8 10*3/uL (0.11-0.8); Monocytes % 10.4 % (1.7-12.7); Neutrophils % 36.2 % (38.7-73.9); Platelet Count 183 T/CUMM (130-400); Red Blood Count 2.76 MC/CUMM (3.8-5.5); Red Cell Distribution Width 14.1 % (9.3-17.3); White Blood Count 7.4 T/CUMM (4-12)
[2022-08-29 05:09] LABS: Eosinophils 4 % (0-10); Hypochromia Slight; Lymphocytes 53 % (20-55); Total Cells Counted 100
[2022-08-29 05:10] LABS: Microcytosis Slight; Platelet Estimate Adequate; Tear Drop Cells Slight
[2022-08-29 05:14] LABS: Calcium 9.9 MG/DL (8.5-10.1); Osmolality,Calculated 286.8 MOS/KG (273-304); Potassium 4.1 MMOL/L (3.5-5.1)
[2022-08-29] MEDS: LEVOTHYROXINE 50 MCG TABLET PO SCH (06:21)
[2022-08-29] MEDS: INSULIN REGULAR 100 UNIT/ML SUBCUT SCH ×4 (08:18→20:37)
[2022-08-29] MEDS: CALCIUM ACETATE 667 MG CAPSULE PO SCH ×3 (08:49→16:53)
[2022-08-29] MEDS: carvediloL 6.25 MG TABLET PO SCH ×2 (08:49→16:53)
[2022-08-29] MEDS: POLYETHYLENE GLYCOL POWDER 17 GM PACK PO SCH (08:50)
[2022-08-29] MEDS: DOCUSATE SODIUM 100 MG/10 ML UDCUP PO SCH ×2 (08:50→20:39)
[2022-08-29] MEDS ORDERED: TUBERCULIN SKIN TEST 0.1 ML SYRINGE INTRADERM ONE (13:00)
[2022-08-29] MEDS: FAMOTIDINE 20 MG/2 ML VIAL IV SCH (20:35)
[2022-08-30] MEDS: METOCLOPRAMIDE 5 MG TABLET PO SCH ×3 (00:15→13:00)
[2022-08-30] MEDS: LEVOTHYROXINE 50 MCG TABLET PO SCH (06:07)
[2022-08-30] MEDS: ALBUTEROL/IPRATROPIUM 3 ML NEB RESP TX SCH ×2 (07:15)
[2022-08-30] MEDS: INSULIN REGULAR 100 UNIT/ML SUBCUT SCH (08:38)
[2022-08-30] MEDS: CALCIUM ACETATE 667 MG CAPSULE PO SCH ×2 (08:39→13:00)
[2022-08-30] MEDS: carvediloL 6.25 MG TABLET PO SCH (08:40)
[2022-08-30] MEDS: POLYETHYLENE GLYCOL POWDER 17 GM PACK PO SCH (08:40)
[2022-08-30] MEDS: DOCUSATE SODIUM 100 MG/10 ML UDCUP PO SCH (08:40)
[2022-08-30] MEDS: ACETAMINOPHEN 325 MG TABLET PO PRN (10:13)
[2022-08-30] MEDS: diphenhydrAMINE CAP 25 MG CAPSULE PO PRN (10:13)
[2022-08-30 13:37] VITALS: BP 136/67
== END 2022-08-30 13:42 | DRG 673 ==
LOC: N.ED 13:23 → N.EDINP 19:32 → SUATTDRO 19:32 → N.CC 19:51 → N.ICU 08-17 16:37 → N.5E 08-22 17:44
PROVIDERS: ADMIT Internal Medicine; ATTEND Internal Medicine